=== PATIENT | male | born 1960 | race Caucasian/White ===

== ENCOUNTER 2018-02-12 15:32 | Observation (INO) | payer MEDICARE, MEDICAID, SELFPAY ==
[2018-02-12] VITALS (12 sets, daily range): BP systolic 118–148; BP diastolic 71–97; PULSE 88–109; RESP 14–18; TEMP 36.4–37.3; O2SAT 92–99; BMI 28.7
--- NOTE | 2018-02-12 | SOF_PTH ---
PATIENT: PABLO FRIAS LOC: [facility] U#:[id number] AGE/SX: 58/M ROOM: TX316 RE02/12/[address]: Dr. Washington Elam MD : 1960 BED: 1 DIS: 02/13/2018 SPEC #: [id number] RECD: 02/12/18 15:01 STATUS: SUGAR REQ #: [id number] DAVID: 02/12/18 00:[address]: Washington Elam DEPT: SURGICAL PATHOLOGY RECD BY: Regis Mcqueen ENTERED: 02/12/18 15:02 SP TYPE: SOFT TISS OTHR DR: Dr. Lexx Smith MD Tissues: Neck, NOS Procedures: Surgery Specimen Level V HEADER OPERATION: Left neck, modified radical dissection PRE-OP DIAGNOSIS: Papillary thyroid carcinoma, secondary malignant neoplasm of lymph nodes of neck TISSUE SUBMITTED: Modified radical left neck dissection with anterior compartment for metastatic thyroid carcinoma - neck levels labeled on specimen MICROSCOPIC DIAGNOSIS Neck, modified radical neck dissection: Two out of 33 lymph nodes positive for metastatic carcinoma. See comment. Level 1 lymph node - two out of two lymph nodes negative for metastatic carcinoma. Salivary gland tissue, no pathologic diagnosis. Level 2 lymph node - eight out of eight lymph nodes negative for metastatic carcinoma. Level 3 lymph node - one out of one lymph node negative for metastatic carcinoma. Level 4 lymph node - one out of three lymph nodes positive for metastatic papillary thyroid carcinoma. Level 5 lymph node - nine out of nine lymph nodes negative for metastatic carcinoma. Level 6 lymph node - nine out of nine lymph nodes negative for metastatic carcinoma. Level 7 lymph node - one lymph node, positive for metastatic papillary thyroid carcinoma. JACKY:windy 02/15/18 COMMENT Level 4 and level 7 lymph nodes are positive for metastatic papillary thyroid carcinoma and measures 2.5 and 2 cm in greatest dimension, respectively. They are almost completely replaced by the metastatic tumor. Extranodal extension is noted. Please make reference to previous specimen ([id number]), fine needle aspiration, left thyroid nodule with diagnosis of papillary carcinoma follicular variant and ([id number]) thyroid gland, total thyroidectomy with diagnosis of papillary thyroid carcinoma, multifocal. This case is discussed with Dr. Elam on 02/15/18. Case has been reviewed in consultation with Dr. Slaughter who concurs with the above diagnosis. IDC:AM MICROSCOPIC DESCRIPTION Slides are reviewed. GROSS DESCRIPTION Received in fixative is one container labeled with the patient's name and designated modified radical neck dissection with anterior compartment for metastatic thyroid carcinoma, neck levels are labeled. The specimen consists of a piece of fibroadipose tissue with levels of lymph nodes are labeled on a towel also stitched to it for orientation and measuring 21.5 x 8 x 2 cm. Level 7 lymph node is present separately. Level I - Three possible lymph nodes including salivary gland tissue are identified. Sections are submitted in three cassettes as follows: 1 - one bisected lymph node, 2 - salivary gland tissue, 3 - salivary gland tissue and one lymph node inked black. Level 2 - Seven possible lymph nodes are identified. Sections are submitted as follows: 4 - three lymph nodes, 5 - four lymph nodes. Level 3 - Three possible lymph nodes are identified in level 3 and sections are submitted as follows: possible lymph nodes, cassette 6. Level 4- Two lymph nodes are identified, one smaller lymph node measuring 0.5 cm and the second larger lymph node measuring 2.5 cm in greatest dimension. Sections of the larger lymph node reveal possible gross involvement by the tumor. Sections are submitted as follows: 7 & 8 - serially sectioned larger lymph node, 9 - one lymph node. Level 5 - Ten possible lymph nodes are identified measuring 0.2 to 0.5 cm in greatest dimension. Sections are submitted as follows: Cassette 10 - two lymph nodes, 11 & 12 - multiple lymph nodes. Level 6 - Seven possible lymph nodes are identified in level 6 and Sections are submitted as follows: 13 - multiple lymph nodes, 14 - one bisected lymph node. Level 7 - The specimen is present as a separate piece of tissue and measures 2 x 1 x 0.5 cm and it is bisected and submitted entirely in cassette 15. The lymph nodes are submitted in entirety. The lymph nodes measures 0.2 to 2.5 cm in greatest dimension. / SJ:rg 02/12/18 The specimen is further dissected for more possible lymph nodes. The salivary gland tissue at level 1 measures approximately 4 x 3 x 1 cm. Additional operations representative sections are submitted as follows: 16 - level 1, salivary gland tissue, 17 - level 2, possible lymph nodes, 18 - level 3, possible lymph nodes, 19 - level 5, possible lymph nodes, 20 - level 6, possible lymph nodes. / JACKY:windy 02/15/18 TC:0 CPT: 93858
--- NOTE | 2018-02-12 05:44 | EKG12_ITS ---
Test Reason : PRE-OP Blood Pressure : / mmHG Vent. Rate : 094 BPM Atrial Rate : 094 BPM P-R Int : 156 ms QRS Dur : 092 ms QT Int : 348 ms P-R-T Axes : 072 072 061 degrees QTc Int : 435 ms Normal sinus rhythm Normal ECG Confirmed by TEJA ROBIN, BELTRAN ([id number]), electronic news gathering editor ALEX COOK ([id number]) on 02/18/2018 11:35:40 AM Referred By: Washington Elam Confirmed By:BELTRAN LEZAMA MD
[2018-02-12 06:28] LABS: Hematocrit 45.5 % (40-54); Hemoglobin 15.4 g/dl (13.0-16.5); Mean Corp Hgb Conc 33.8 g/gl (32-36); Mean Corpuscular Hgb 31.7 pg (27.0-32.0); Mean Corpuscular Volume 93.6 fL (80-94); Mean Platelet Vol. 10.6 fl (6.2-12.0); Platelet Count 305 K/mm3 (150-450); RBC Distribution Width CV 13.3 % (11.6-14.6); RBC Distribution Width SD 44.4 fl (35.1-43.9); Red Blood Count 4.86 M/mm3 (4.6-6.2); White Blood Count 7.4 K/mm3 (4.4-11.0)
[2018-02-12 06:31] LABS: Scan Indicated on CBC? Y/N NO
[2018-02-12 06:32] LABS: Prothrombin Time (Protime)PT. 13.6 SECONDS (11.7-14.9)
[2018-02-12 06:33] LABS: Partial Thromboplast Time 30.3 Seconds (24.1-36.2)
[2018-02-12 06:46] LABS: AST(SGOT) 20 U/L (15-37); Alanine Aminotransfer ALT/SGPT 40 U/L (16-61); Albumin, Serum 3.5 g/dL (3.2-5.0); Alkaline Phosphatase 62 U/L (45-117); Anion Gap 8 (5-15); BUN 19 mg/dL (7-18); BUN/Creat Ratio 18.8 RATIO (10-20); Bilirubin, Direct 0.14 mg/dL (0.00-0.30); Chloride 110 mmol/L (98-107); Creatinine, Serum 1.01 mg/dL (0.70-1.30); EST Glomerular Filtration Rate 80 mL/min (>60); Est Glom Filt Rate - Afr Amer 97 mL/min (>60); Estimated Creatinine Clearance 81.31 ml/min; Globulin 3.3 g/dL (2.2-4.2); Glucose 112 mg/dL (74-106); Potassium 3.8 mmol/L (3.5-5.1); Protein, Total 6.8 g/dL (6.4-8.2); Sodium Level 141 mmol/L (136-145); Thyroid Stim Hormone (TSH) 1.97 uIU/mL (0.358-3.74)
--- NOTE | 2018-02-12 15:22 | OP.PCM_ITS ---
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 He has a history of thyroidectomy in 2016 where papillary thyroid carcinoma of the right lobe was identified. Review of his ultrasound showed left-sided lymphadenopathy as well as a anterior midline suspicious lymph node and given previous radioiodine therapy surgical treatment was offered in [facility] [place] with the recommendation of his treating application release manager. He was agreeable to proceed. The risks, alternatives, potential benefits, and complications were discussed at length and any questions answered to the patient and/or caregiver's satisfaction. Witnessed informed consent was obtained in the office, and the patient and/or caregiver was agreeable to proceed. Procedure went as follows: The patient was identified in the preoperative holding brought to the operating room was placed under general anesthesia and intubated. When appropriate anesthesia obtained, the neuro monitoring elec trodes of the complacency and confirmed to be operational in accordance manufactures directions given his preoperative right vocal fold paralysis. The left neck was then prepped and draped in usual sterile fashion after injecting with 10 cc of 1% lidocaine with 100,000 epinephrine along a standard apron type incision. After lying for vasoconstriction, a 15 blade scalpel was used to incise the skin and platysma. A subplatysmal flap was then elevated superiorly to the level of the hyoid and inferiorly to the clavicle. Self-retaining silk tie sutures were then applied and the dissection carried out along the mandible with identification of the marginal mandibular branch of the facial nerve which was identified and preserved. The submandibular gland was then resected free from the surrounding tissue with the facial vein and artery individually clamped and ligated with 3-0 silk sutures as well as the ganglion attachment of the lingual nerve dissection was then carried out inferiorly along the sternocleidomastoid muscle which was then divested of its surrounding fascia as part of the neck dissection component. Superiorly this was transected where it met the parotid gland superiorly and inferiorly at the clavicle. The dissection was then carried circumferentially around the sternocleidomastoid muscle with a spinal accessory nerve identified and preserved. The deep fatty tissues were then dissected free encompassing level 5 cervical lymph nodes over the cervical nerve rootlets and developed anteriorly to the carotid artery in its sheath. The vagus nerve was identified and preserved and dissection carried up along the jugular vein. The tributaries were then individually clamped and ligated to allow the jugular vein to be dissected free within the vascular sheath. Within level 3 there is identified a 2 cm firm enlarged lymph node as well as a smaller node more inferiorly and anteriorly dissection was carried down low in the inferior aspect of level 4 where the fatty tissue was clamped and ligated with silk sutures to avoid complication of chylous fistula. Dissection was then carried out anteriorly where the previously dissected thyroid bed was encountered in the fatty tissues and lymph bearing tissues were then dissected free from the strap muscles and continued anteriorly where the anterior compartment was then evacuated of tissue. This was then marked and sent for pathologic evaluation. Ultrasound evaluation showed a 1 cm level 7 node and this was palpable anterior to the trachea and this was further resected and sent as separately marked specimen. Recurrent laryngeal nerve monitoring was used during the procedure however the course of the facial nerve was densely scarred and fibrosed with the tracheoesophageal groove obliterated by scar tissue. As this did not have any ultrasonographic or clinically palpable evidence of disease this was left unexplored an effort to reduce inadvertent injury to the nerve. The neck specimen was thoroughly examined for any intervening parathyroid tissue where none was identified to allow for pathologic identification and reimplantation. There was noted to be a fatty pink tissue remnant along the normal course of the vascular pedicle at the thyroid cartilage which could possibly represent residual parathyroid tissue and this was left intact as it was not firm or discolored as the other obviously tumor involved nodes were. The wound was then copiously irrigated saline solution and a #7 flat drain placed and brought through a separate stab incision in the skin. The platysma was then reapproximated with interrupted 3-0 Vicryl sutures followed by running 5-0 Monocryl suture to the skin. The patient was then returned to anesthesia revived and expelled without complication having tolerated the procedure well. Type of Anesthesia:: General Anesthesiologist: [place] Special Medications: none Specimen's removed: left neck and midline contents Drains: #7 flat CHRISTINA Estimated Blood Loss (mL): 50 mL Fluids Replaced: 1700 ml - Complications none - Admit VTE Documentation VTE Present on Admission: No VTE Mechan Device Prophylaxis: SCD's VTE Pharm Prophylaxis ordered?: No
[2018-02-12 17:13] LABS: PTHIN 53.9 pg/mL (18.4-80.1)
[2018-02-12] MEDS: Lactated Ringers 1,000 ML 120 ML IV (17:47)
[2018-02-12] MEDS: Ibuprofen 400 MG Tablet PO ×2 (17:52→23:02)
[2018-02-12] MEDS: Budesonide Respules 0.5 MG/2 ML AMPUL.NEB. INHALATION (19:13)
[2018-02-12] MEDS: Albuterol 2.5 MG/3 ML VIAL.NEB. INHALATION ×2 (19:13→23:34)
[2018-02-13 01:59] VITALS: PULSE 84
[2018-02-13 02:10] VITALS: BP 133/77; PULSE 80; RESP 14; TEMP 36.3; O2SAT 95
[2018-02-13] MEDS: Acetaminophen 325 MG Tablet 650 MG PO (02:21)
[2018-02-13] MEDS: Lactated Ringers 1,000 ML 120 ML IV (02:21)
[2018-02-13] MEDS: Thyroid 60 MG Tablet 240 MG PO (07:03)
[2018-02-13] MEDS: Ibuprofen 400 MG Tablet PO (07:03)
[2018-02-13] MEDS: Budesonide Respules 0.5 MG/2 ML AMPUL.NEB. INHALATION (07:23)
[2018-02-13] MEDS: Albuterol 2.5 MG/3 ML VIAL.NEB. INHALATION (07:23)
[2018-02-13 07:49] LABS: Calcium,Total 7.6 mg/dL (8.5-10.1)
[2018-02-13 07:50] VITALS: BP 112/70; PULSE 83; RESP 18; TEMP 36.7; O2SAT 93
[2018-02-13] MEDS: predniSONE 5 MG Tablet 15 MG PO (07:55)
[2018-02-13 08:49] VITALS: PULSE 92
--- NOTE | 2018-02-13 09:04 | PCM.PN.SRG ---
Patient Problems: Active and Suspected Problems Secondary and unspecified malignant neoplasm of lymph nodes of head, face and neck (Acute) Malignant neoplasm of thyroid gland (Acute) Subjective: Doing well, denies incisional pain, perioral numbness or tingling. Objective: Well appearing with normal voicing and facial movement. Chvostek's sign negative. Neck incision clean, dry, and intact. - Physical Exam General: Alert, Oriented x3, No apparent distress HEENT: Atraumatic, PERRLA, EOMI Oral: Moist Mucosa Neck: Supple, - - incision intact, drain with serous output Lungs: Normal air movement Cardiovascular: Regular rate, Regular Rhythm Extremities: No cyanosis, No edema Skin: No rashes, No breakdown Psych/Mental Status: Alert and oriented to time, place, person, mood and affect Vital Signs Temp Pulse Resp BP Pulse Ox 98.0 F 92 18 112/70 93 02/13/18 07:50 02/13/18 08:49 02/13/18 07:50 02/13/18 07:50 02/13/18 07:50 Oxygen Flow Rate (L/min) 2 Oxygen Delivery Method Room Air Weight: 90.7 kg Body Mass Index (BMI) 28.7 Intake and Output for Last 24 Hours 02/11/18 02/12/18 02/13/18 23:59 23:59 23:59 Intake Total 2500 / 2500 2067 / 2068 Output Total 65 / 65 480 / 480 Balance 2435 / 2435 1588 / 1588 Laboratory Tests Past 24 Hrs 02/12/18 02/12/18 02/13/18 16:10 16:10 07:14 Calcium 8.0 L 7.6 L PTH Intact 53.9 Medical Necessity - Tobacco Use Smoking Status: Former smoker Assessment/Plan All Active Problems Secondary and unspecified malignant neoplasm of lymph nodes of head, face and neck (Acute) Malignant neoplasm of thyroid gland (Acute) Doing well s/p left neck dissection for metastatic papillary thyroid carcinoma. Hypocalcemia from pre-op, asymptomatic and oral calcium supplementation with vitamine D use encouraged. Drain output remains higher than I would like for removal, but he reports familiarity with drain care and desires to go home and discharge with return for drain removal in the office is offered. He is otherwise doing very well and appears to have preserved function of the facial and laryngeal verve on the operative side.
--- NOTE | 2018-02-13 09:10 | DCINST_ITS ---
- Discharge Diagnoses Current Active Problems: Current Active and Chronic Problems Secondary and unspecified malignant neoplasm of lymph nodes of head, face and neck (Acute) Malignant neoplasm of thyroid gland (Acute) You will use the following diet at home:: Regular Discharge Activity: Return to Normal Activity Call your doctor if your incision/area has: Sudden Increased Bleeding, Increased Redness, Swelling at the incision site Call your doctor if you observe: Fever of 101 or Higher, Uncontrolled pain Suture Line Care: Avoid Pulling/Pushing Drain: - - drain fluid collected in bulb at least twice a day Allergies/Adverse Reactions: Allergies Tetracyclines Allergy (Verified 02/12/18 06:12) Rash Medications to take at Discharge Albuterol Inhaler [Ventolin Hfa (SP)] 2 puff INHALATION Q4H PRN PRN 11/28/15 Albuterol Aerosols [Ventolin Aerosols] 2.5 mg INHALATION Q6H PRN PRN 06/28/16 Budesonide/Formoterol Fumarate [Symbicort 160-4.5 Mcg Inhaler] 2 puff IH BID 06/28/16 Thyroid [[place] Thyroid] 240 mcg PO DAILY 11/15/16 Prednisone [Deltasone] 15 mg PO DAILY 03/28/17 Primary Care Physician: Lexx Smith MD [Primary Care Provider] - Test Results: Test results from this visit will be discussed in further detail at your follow- up appointment, if applicable. Please Follow Up With: Washington Elam MD When: 2 days
== END 2018-02-13 09:34 | disposition home or self-care (01) ==
LOC: ACINP 15:51 → MS3 02-15 10:44
PROVIDERS: Admitting Provider Otolaryngology; Family Provider Family Medicine; PCP Family Medicine; Referring Provider Otolaryngology; Visit Provider Otolaryngology
PROC: (CPT 42410; principal; 2018-02-12 07:00)
DX: C73 Malignant neoplasm of thyroid gland (principal); C77.0 Secondary and unspecified malignant neoplasm of lymph nodes of head, face and neck; J44.9 Chronic obstructive pulmonary disease, unspecified; G25.81 Restless legs syndrome; J38.01 Paralysis of vocal cords and larynx, unilateral; Z79.899 Other long term (current) drug therapy; Z79.51 Long term (current) use of inhaled steroids; Z87.891 Personal history of nicotine dependence; E07.9 Disorder of thyroid, unspecified; R06.00 Dyspnea, unspecified; Z23 Encounter for immunization
CPT/HCPCS: 38724; 36415; 80048; 80076; 82310; 83970; 84443; 85027; 85610; 85730; 88305; 88307; 93005; 94640; 96360; 96361; 99218; G0008; J7120; 90686; A4216; G0378; G0379; J2405

== ENCOUNTER 2018-04-15 12:45 | Emergency (ER) | payer MEDICARE, MEDICAID, SELFPAY ==
[2018-04-15 12:46] VITALS: BP 132/92; PULSE 103; RESP 16; TEMP 36.8; O2SAT 96; BMI 28.7
--- NOTE | 2018-04-15 13:26 | RAD_ITS ---
STUDY: X-RAY CHEST REASON FOR EXAM: Male, 58 years old. Hemoptysis. TECHNIQUE: PA and lateral views of the chest. COMPARISON: Comparison is made with prior study dated March 28, 2017. FINDINGS: Hyperinflation. Scattered calcified granulomas. Decreased bronchovascular markings in both lungs suggestive of emphysematous changes. There is no demonstrated pleural abnormality. Normal size heart. Normal mediastinum and nely. Normal visualized pulmonary arteries. Normal visualized aortic arch and descending thoracic aorta. There is demineralization of the osseous structures. Normal visualized ribs, clavicles, and shoulders. There is no demonstrated abnormality of the visualized soft tissue structures of the upper abdomen. RAD/Chest PA and Lateral IMPRESSION: Hyperinflation. No acute abnormality is seen. Electronically Signed: Nash Pepe MD at 13:55 EST Tel [phone], Service support ,
--- NOTE | 2018-04-15 13:31 | ED.DCSUM_ITS ---
History of Present Illness Chief Complaint: Cough Informant: Patient Onset: Month(s) - 2 Context: Onset with activity - since his ENT left neck surgery Timing: Intermittent - but daily; worse today Quality: small chunks of blood Current Severity: Moderate Maximum Severity: Moderate Worsened by: nothing Relieved by: nothing Associated Symptoms: copd/wheezing over past 1-2 mos, breathing normally in past several days Narrative: Patient states he has a paralyzed vocal cord due to his thyroid surgery, he had papillary carcinoma in his thyroid was removed. He recently had some abnormal lymph nodes with more cancer in them, which were removed in February from the left side of his neck. He states he has had a scope in the ENT office before and after his surgery. - Past Medical History (1) COPD (chronic obstructive pulmonary disease) Status: Chronic (2) Malignant neoplasm of thyroid gland Status: Chronic (3) Secondary and unspecified malignant neoplasm of lymph nodes of head, face and neck Status: Chronic Past Medical History - Allergies and Home Meds Allergies/Adverse Reactions: Allergies Tetracyclines Allergy (Verified 02/12/18 06:12) Rash Primary Care Physician: Lexx Smith MD [Primary Care Provider] - Surgical History: - - thyroid, left neck LND Smoking Status: Former smoker Review of Systems General: Denies: Chills, Fever, Sweats Eyes: Denies: Visual changes - bilaterally, Diplopia ENT: Denies: Rhinorrhea, Sore throat Cardiovascular: Denies: Chest pain, Palpitations, Heart racing Respiratory: Reports: Dyspnea - wheezing -- resolves w/ home breathing treatments, - - hemoptysis. Denies: Cough, Dyspnea on exertion Gastrointestinal: Denies: Abdominal pain, Nausea, Vomiting, Diarrhea, Melena, Hematochezia Genitourinary: Denies: Dysuria, Hematuria, Frequency Musculoskeletal: Denies: Back pain, Swelling, Extremity Pain Skin: Denies: Rash, Abscess Neurological: Denies: Headache, Weakness, Parasthesia, Numbness Allergy: Denies: Swelling of the mouth, Swelling of the tongue Physical Exam Vital Signs/Narrative: Vital Signs Temp Pulse Resp BP Pulse Ox 04/15/18 12:46 98.2 F 103 H 16 132/92 H 96 Inital Vital Signs reviewed: Yes General: Well nourished, Well developed Head: Normocephalic, Atraumatic Eyes: Perrl, EOMI ENT: Moist mucous membranes, No rhinorrhea, - - Posterior oropharynx with some cobblestoning but otherwise clear with no bleeding or obvious source. Hoarse of voice. Neck: Supple, Nontender, - - thickened/firm but not distended or swollen left lateral neck surgical site. no evidence for infection or dehiscence or fluid collection. Cardiovascular: Regular rate, Regular rhythm, No murmurs Respiratory: No distress, CTA bilaterally, Chest nontender, Diminished - throughout Abdomen: Soft, Nontender, Nondistended Back: Nontender, Normal Inspection Extremities: Nontender, No edema Skin: Normal color, No rash Neurological: Alert, Oriented x3, Cranial nerves II-XII grossly intact, Normal Strength, Normal Sensation, Normal Gait Psychological: Normal affect Diagnostic/Tx/Re-eval Impressions Chest X-Ray 04/15/18 13:26 IMPRESSION: Hyperinflation. No acute abnormality is seen. Electronically Signed: Nash Pepe MD at 13:55 EST Tel [phone], Service support , 04/15/18 13:26 Chest PA and Lateral [RAD] Stat 04/15/18 13:57 CT Chest [Chest without Contrast] [CT] Stat Laboratory Results 04/15/18 13:35 WBC 10.6 RBC 5.07 Hgb 16.1 Hct 47.4 MCV 93.5 MCH 31.8 MCHC 34.0 RDW 13.5 RDW Differential 44.9 H Plt Count 325 MPV 10.6 Immature Gran % (Auto) 0.400 Neut % (Auto) 85.0 H Lymph % (Auto) 7.3 L S[place]y % (Auto) 4.3 Eos % (Auto) 2.8 Baso % (Auto) 0.2 Absolute Neuts (auto) 9.0 H Absolute Lymphs (auto) 0.77 L Total Counted Not Reportable - Medical Decision Making Patient was amenable to blood count and a chest x-ray both of which are unremarkable. I discussed with Dr. Elam, his rehab specialist. He states that the patient has been noncompliant with recommended treatments. He recommended physical therapy for the unusually high amount of scarring he developed in the left side of his neck, but the patient does not want to do that. He also recommended bronchoscopy, but states the patient refused several times, since he had a mass that was on or very close to his airway, and there is risk for the mass progressing into the tracheobronchial tree. I discussed this with the patient, he states that his doctor did not recommend bronchoscopy to him, he has no recollection of that. He states he is interested in that. I advised performing a CT scan without contrast, to lessen his risk for worsening any residual thyroid papillary carcinoma, however he is refusing that and states that he does not think he needs it. I discussed with him why I thought it was a good idea but he still pleasantly refuses and wants the referral information for pulmonary, and he does not want to see the group here he would rather go to [facility]. He is given referral information and advised to call for a follow-up as soon as possible, and if he reconsiders the CT scan, he is welcome to return. ED Disposition - Plan for ED Patient: Disposition: Home or Assisted Living Chief Complaint: GI Bleed Diagnosis: Hemoptysis, Secondary and unspecified malignant neoplasm of lymph nodes of head, face and neck Instructions: ED Hemoptysis Referrals: Lexx Smith MD [Primary Care Provider] - Sudeep Short MD [NON-STAFF] - As soon as possible (Call for appointment)
[2018-04-15 13:46] LABS: Absolute Lymphocyte Count 0.77 X10^3/ul (0.83-4.51); Basophil# 0.02 X10^3/uL; Basophil% 0.2 % (0-1); Eosinophils% 2.8 % (0-5); Hematocrit 47.4 % (40-54); Hemoglobin 16.1 g/dl (13.0-16.5); Lymphocyte # 0.77 X10^3/ul (4.0); Lymphocyte % 7.3 % (19-41); Mean Corpuscular Hgb 31.8 pg (27.0-32.0); Mean Corpuscular Volume 93.5 fL (80-94); Mean Platelet Vol. 10.6 fl (6.2-12.0); Monocyte# 0.46 X10^3/uL; Monocyte% 4.3 % (0-10); Neutrophil # 8.99 X10^3/uL (2.7-7.7); Platelet Count 325 K/mm3 (150-450); RBC Distribution Width CV 13.5 % (11.6-14.6); RBC Distribution Width SD 44.9 fl (35.1-43.9); Red Blood Count 5.07 M/mm3 (4.6-6.2); White Blood Count 10.6 K/mm3 (4.4-11.0)
[2018-04-15 13:48] LABS: POSITIVE COUNT NO; POSITIVE DIFFERENTIAL NO; POSITIVE MORPHOLOGY NO
--- OUTSIDE RECORDS SUMMARY | 2018-06-01 10:24 | XMS RPT_ITS ---
:1960 Author Organization OHIP Care Team Providers Name Role Phone SARAH, LAURO Primary Care Unavailable ODIN NEGRETE Attending Unavailable Elam, [place] Attending Unavailable Elam, [place] Referring Unavailable SARAH, LAURO Primary Care Unavailable Elam, [place] Admitting Unavailable Clint Lezama Attending Unavailable Elam, [place] Referring Unavailable LUIS BLANDON Attending Unavailable JOHNNIENERLUIS Attending Unavailable Sarah, Lauro Attending Unavailable Sarah, Lauro Primary Care Unavailable Sarah, Lauro Admitting Unavailable Sarah, Lauro Admitting Unavailable Sarah, Lauro Attending Unavailable Sarah, Lauro Primary Care Unavailable Sarah, Lauro Attending Unavailable Sarah, Lauro Primary Care Unavailable Sarah, Lauro Admitting Unavailable Sarah, Lauro Attending Unavailable Sarah, Lauro Primary Care Unavailable Sarah, Lauro Admitting Unavailable Sarah, Lauro Attending Unavailable Sarah, Lauro Primary Care Unavailable DINH LEZAMA Admitting Unavailable DINH LEZAMA Attending Unavailable HASAN, SHAZIA Referring Unavailable HASQUIQUE SHAZIA Referring Unavailable NITZA ADANA Attending Unavailable TOYA NEGRETE (KIMANI) Referring Unavailable TOYA NEGRETE (KIMANI) Attending Unavailable TOYA NEGRETE (KIMANI) Referring Unavailable TOYA NEGRETE (KIMANI) Referring Unavailable DINH LEZAMA Attending Unavailable TOYA NEGRETE (KIMANI) Referring Unavailable HASAN, SHAZIA Referring Unavailable HASANNITZAA Attending Unavailable HASAN, SHAZIA Referring Unavailable SHAZIA ADAN Attending Unavailable SHAZIA ADAN Referring Unavailable KENDAL KATALINA E Attending Unavailable SHAZIA ADAN Referring Unavailable TUCKERTAWANDA DINH Attending Unavailable PROBLEMS PROBLEMS DATE TYPE CONDITION / CODE ATTENDING STATUS SOURCE 05/07/2018 Active Hemoptysis / DINH LEZAMA Active [facility] R04.2(ICD-10) Clinic Other [facility] Rep[facility] 05/07/2018 Active 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, Clinic Other unspecified / [facility] J38.00(ICD-10) Repository 03/15/2018 Unknown C73 - Malignant Elam, [place] Active [facility] neoplasm of thyroid [facility] gland / C73(ICD-10) Hospital Repository 03/12/2018 Unknown R06.00 - Dyspnea, [place], Clint [facility] unspecified / [facility] R06.00(ICD-10) Hospital Repository 11/24/2016 Active Postprocedural NA Active [facility] hypothyroidism / Clinic Main E89.0(ICD-10) [facility] 06/08/2017 Active Chronic obstructive NA Active [facility] pulmonary disease, Clinic Main unspecified / [facility] J44.9(ICD-10) Repository 09/20/2015 Active Malignant neoplasm NA Active [facility] of thyroid gland / Clinic Main C73(ICD-10) [facility] PROCEDURES PROCEDURES No Procedure Records FoundRESULTS RESULTS CNCO Observed: 05/12/2018 Status: COMPLETED Source: [place] 12:00 AM CLINIC OTHER CAMPUS REPOSITORY Letter Text Pablo Sanchez Dinh Lezama MD, [facility] [place] May 12, 2018 Dear Mr. Sanchez, At bronchoscopy: - Other than the previously identified vocal cord paralysis, no significant airway abnormality visible to my eye. - No active bleeding, or potential source of bleeding was found in the tracheobronchial tree. - No visual or microscopic evidence of either bronchogenic (lung) or infiltrative thyroid cancer was seen. - Minimal clear secretions were seen in the lower airways, easily rinsed and suctioned free with the bronchoscope, and cultures of these secretions show no evidence of active infection. IMPRESSION: 1. Most likely cause of hemoptysis is exacerbation of previously documented chronic bronchitis/COPD. RECOMMEND: 1. Stop Budesonide by nebulizer. 2. Add Trelegy 1 inhalation once daily every day. I have E-scripted to [facility] on file. It is covered by insurance according to our records. 3. Use Combivent Respimat 1 inhalation, only as needed, up to 3-4 times daily. I have also sharing this report with Dr. Adan, Dr. Smith and Dr. Elam. Dinh Lezama MD, [facility] [place] [address] [place] [address] cc: Lauro Smith MD [address] [place] [id number] [place] Elam MD [address] [facility], [address] [facility] [address] ARBEN Observed: 05/12/2018 Status: COMPLETED Source: [place] 12:00 AM CLINIC OTHER CAMPUS REPOSITORY Telephone (MEPRAD) PABLO SANCHEZ ([id number]) 1960 M Date Time Provider Department 05/12/18 DINH LEZAMA During your visit today, we recorded the following information about you: Dinh Lezama MD 05/12/2018 10:03 AM Signed At bronchoscopy: - Other than the previously identified vocal cord paralysis, no significant airway abnormality visible to my eye. - No active bleeding, or potential source of bleeding was found in the tracheobronchial tree. - No visual or microscopic evidence of either bronchogenic (lung) or infiltrative thyroid cancer was seen. - Minimal clear secretions were seen in the lower airways, easily rinsed and suctioned free with the bronchoscope, and cultures of these secretions show no evidence of active infection. IMPRESSION: 1. Most likely cause of hemoptysis is exacerbation of previously documented chronic bronchitis/COPD. RECOMMEND: 1. Stop Budesonide by nebulizer. 2. Add Trelegy 1 inhalation once daily every day. I have E-scripted to [facility] on file. It is covered by insurance according to our records. 3. Use Combivent Respimat 1 inhalation, only as needed, up to 3-4 times daily. I have also saved this notation in a letter printed today, to be mailed to patient. Dinh Lezama MD, [facility] [place] [facility] [address] [place] [address] P: [phone] F: [phone] [email or web address] Sonia Mirza LPN 05/12/2018 10:43 AM Signed Patient notified and verbalizes understanding. Sonia Mirza LPN Allergies As of Date: 05/12/2018 Noted Allergy Reaction TETRACYCLINES 08/05/2015 2 - Rash Date Reviewed: 05/12/2018 Reviewed by: Dinh Lezama - Fully Assessed Reason for Visit: Results [95] Cmt: Bronchoscopy Visit Diagnosis:Hemoptysis [R04.2] Order(s):jhegtdltczg-znkhrkwiv-iwmarorz (TRELEGY ELLIPTA) 100-62.5-25 mcg dsdvInhale 1 Puff as instructed once daily.Disp: 1 EachRfl: 5 Prescriptions as of 05/12/2018 Sig: FLUTICASONE 100 MCG-UMECLID 6* Inhale 1 Puff as instructed o* LEVOTHYROXINE 150 MCG TABLET Take 2 tablets by mouth once * IPRATROPIUM 20 MCG-ALBUTEROL * Inhale 1 Puff as instructed f* ALBUTEROL SULFATE 2.5 MG/3 ML* Use 3 mL via nebulizer every * PREDNISONE 5 MG TABLET Take 3 tablets by mouth once * Problem List As Of Date 05/12/2018 Noted Resolved Special screening for malignant neoplasms, colo*INVALID FOR*11/09/2014 SI (sacroiliac) joint dysfunction [M53.3] INVALID FOR* Midline low back pain with right-sided sciatica*INVALID FOR* DDD (degenerative disc disease), lumbar [M51.36]INVALID FOR* Papillary thyroid carcinoma (HCC) [C73] INVALID FOR* Postoperative hypothyroidism [E89.0] INVALID FOR* High serum thyroglobulin [R79.89] INVALID FOR* Cervical lymphadenopathy [R59.0] INVALID FOR* COPD with chronic bronchitis (HCC) [J44.9] INVALID FOR* Hemoptysis [R04.2] INVALID FOR* More... Prescriptions ordered this encounter Disp Refills Start End FLUTICASONE 100 MCG-UMECLID 62.5 MCG* 1 Ea* 5 05/12/2018 11/08/2018 Route: INHALATION Sig: Inhale 1 Puff as instructed once daily. Medications Discontinued During This Encounter budesonide (PULMICORT) 0.5 mg/2 mL n* 60 V* 11 10/23/2017 05/12/2018 Sig: INHALE 2 ML BY NEBULIZER OVER 5-15 MINUTES EVERY 12 HOURS. Disc: Clinical Decision Encounter Status:Closed by DINH LEZAMA MD on 05/12/18 PT ED Observed: 05/07/2018 Status: COMPLETED Source: [place] 2:06 PM [facility] REPOSITORY HNO ID: [id number] Author: Dat RamirezRn) ROGE Faith Service: Nursing Author Type: Registered Nurse Type: Patient Education Filed: 05/07/2018 2:06 PM Note Text: POST OP LEARNING RESPONSE INSTRUCTION PROVIDED TO: Patient and family member METHOD OF INSTRUCTION: Written instruction - handouts Verbal instruction PATIENT / FAMILY RESPONSE: Verbalizes understanding of: POST-OPERATIVE INSTRUCTIONS-Correct actions to take to reduce postoperative complications FOLLOW-UP PLAN: Patient instructed to call with any further issues SUPPLEMENTAL MATERIAL: None REFERRAL (RECOMMENDATION): None Electronically Signed By: Dat Faith RN In Department: [facility] ENDOSCOPY PROCEDURE Observed: 05/07/2018 Status: COMPLETED Source: [place] 1:17 PM [facility] REPOSITORY HNO ID: [id number] Author: Dinh Lezama Service: Pulmonary Disease Author Type: Physician Type: Procedures Filed: 05/07/2018 1:22 PM Note Text: BEDSIDE PROCEDURE NOTE BRONCHOSCOPY Date/Start Time: 05/07/2018 12:48 PM Performed by: DINH LEZAMA Authorized by: DNIH LEZAMA Consent/Stedman Protocol Written Consent Obtained: Yes Sign In Communication: Completed Time Out completed: Team confirms correct patient, procedure, side/site, position (if applicable) and completion AND review of fire risk assessment/protocols (if appropriate) Affirmation of Time Out: Yes Sign Out Discussion: Yes Pre-procedure Details: Personnel directly involved with the procedure wore the appropriate PPE. Medications: Analgesia and anxiolysis Analgesia (see MAR): Fentanyl Anxiolysis (see MAR): Midazolam Procedure Details: Type: Standard Indication: Hemoptysis and cough, chronic Bronchoscope In Time: 05/07/2018 12:59 PM The bronchoscope was introduced via the left nostril. Maneuvers Performed: Washing Washing - Location: Tracheoronchial tree Washing - Returned Fluid Description: Thin and clear Washing - # of Samples: 1 Bronchoscope Out Time: 05/07/2018 1:03 PM Bronchoscopy Abnormal Findings: Minimal inflammation of the posterior wall of the subglottic trachea. No ulcer, mass, purulent secretion, blood. Post-procedure Details: Patient tolerated the procedure well with no immediate complications Estimated Blood Loss: None Specimens Sent: Bacterial culture (AFB smear and culture, cytology. ) SIGNATURE: Dinh Lezama MD PATIENT NAME: Pablo Sanchez DATE: May 07, 2018 TIME: 1:17 PM PAGER/CONTACT #: [phone] Observed: 05/07/2018 Status: F Source: [place] RESPIRATORY CULT/STAIN 1:15 PM [facility] REPOSITORY Sp. Request/Comment: - Specimen received in sterile container. Smear Result - No organisms seen No Polymorphonuclear Leukocytes Culture Result - Rare Normal respiratory geeta present Performed By: #### RCULST #### [facility] [address] [address] CYTOLOGY Observed: 05/07/2018 Status: F Source: [place] 1:15 PM [facility] REPOSITORY Specimen originated from [facility] Specimen #: [id number] Submitting Physician: Dinh Lezama M.D. SPECIMEN SUBMITTED A: WASHING, ENTIRE TRACHEOBRONCHIAL TREE FINAL DIAGNOSIS A. WASHING, ENTIRE TRACHEOBRONCHIAL TREE Negative for malignant cells. Denzel Souza M.D. Ph.D. (Electronic Signature) CLINICAL DATA Hemoptysis, hoarseness, thyroid cancer. Bronchial washing, entire tracheobronchial tree GROSS DESCRIPTION 42cc clear, colorless CytoLyt with material STAINS A: WASHING, ENTIRE TRACHEOBRONCHIAL TREE THIN PREP Non-News Department Intern Date of Report: 05/10/2018 Date of Procedure: 05/07/2018 Date of Receipt: 05/07/2018 Submitted by: Dinh Lezama M.D. Location: [facility] Diagnostic interpretation performed at [facility], [address] [address]. Performed By: #### WASERENA #### [employer] [address] [place] [address] [phone] OPERATIVE NO Observed: 05/07/2018 Status: COMPLETED Source: [place] 12:40 PM [facility] OTHER CAMPUS REPOSITORY HNO ID: [id number] Author: Dinh Lezama Service: Pulmonary Disease Author Type: Physician Type: Operative Report Filed: 05/07/2018 1:23 PM Note Text: See Epic Procedure Note and Provation Note. Dinh Lezama MD, [facility] [place] [address] P: [phone] F: [phone] HISTORY PHYSICAL Observed: 05/07/2018 Status: COMPLETED Source: [place] 12:12 PM [facility] OTHER CAMPUS REPOSITORY HNO ID: [id number] Author: Dinh Lezama Service: Pulmonary Disease Author Type: Physician Type: HANDP Filed: 05/07/2018 12:15 PM Note Text: PROCEDURAL SEDATION HISTORY AND PHYSICAL EXAM SERVICE DATE: 05/07/2018 SERVICE TIME: 12:10 PM Subjective HPI: This is a 58 year old male who presents with hemoptysis and hoarseness following treatment for thyroid cancer. ENT examination remarkable only for vocal cord paralysis. PAST ANESTHESIA HISTORY: No history of adverse event PAST MEDICAL HISTORY Diagnosis Date - COPD (chronic obstructive pulmonary disease) (HCC) - COPD with chronic bronchitis (HCC) 09/10/2017 - Papillary thyroid carcinoma (HCC) - Postoperative hypothyroidism PAST SURGICAL HISTORY Procedure Laterality Date - COLONOSCOP W/ OR W/O BRSH SPEC 11/09/2014 Colonoscopy - THYROIDECTOMY 07/10/2015 Papillary thyroid carcinoma. Prior to Admission medications as of 05/07/18 1119 Medication Sig Last Dose Taking levothyroxine (SYNTHROID) 150 mcg tablet Take 2 tablets by mouth once daily. 05/07/2018 at 0700 Yes budesonide (PULMICORT) 0.5 mg/2 mL nebulizer solution INHALE 2 ML BY NEBULIZER OVER 5-15 MINUTES EVERY 12 HOURS. 05/07/2018 at 0730 Yes ipratropium-albuterol (COMBIVENT RESPIMAT) 20-100 mcg/actuation mist Inhale 1 Puff as instructed four times daily as needed. 05/06/2018 at 2200 Yes albuterol (PROVENTIL) 2.5 mg /3 mL (0.083 %) nebulizer solution Use 3 mL via nebulizer every 6 hours as needed. OVER 5-15 MINUTES. FOR WHEEZING AND SHORTNESS OF BREATH. 05/06/2018 at 2200 Yes predniSONE (DELTASONE) 5 mg tablet Take 3 tablets by mouth once daily. 05/07/2018 at 0700 Yes ALLERGIES Allergen Reactions - Tetracyclines Rash Objective PHYSICAL EXAM: AIRWAY: Airway Visualization of Uvula: Yes Mouth opening greater than 2 fingerbreadths: Yes Neck Full Range of Motion: Yes LUNGS: Lungs clear to auscultation, Good diaphragmatic excursion CARDIAC: Normal S1 and S2; no rubs, murmurs, or gallops Assessment/Plan ASA Class: ASA Class:: Patient with mild systemic disease Active Problems: * No active hospital problems. * Resolved Problems: * No resolved hospital problems. * Provisional Diagnosis/Treatment Plan: flexible bronchoscopy, possible brush and forceps biopsy. SEDATION GOAL: Moderate SIGNATURE: Dinh Lezama MD PATIENT NAME: Pablo Sanchez DATE: May 07, 2018 TIME: 12:12 PM PAGER: [phone] NURSING PROG Observed: 05/07/2018 Status: COMPLETED Source: [place] 11:28 AM CLINIC OTHER CAMPUS REPOSITORY HNO ID: [id number] Author: Sarah (Rn) ROGE Meier Service: Nursing Author Type: Registered Nurse Type: Nursing Progress Note Filed: 05/07/2018 11:30 AM Note Text: PRE OP LEARNING ASSESSMENT PROCEDURE/SURGERY:Bronchoscopy READINESS TO LEARNeager COGNITIVE ABILITY: Alert and oriented MOTIVATION TO LEARN: Eager FAMILY SUPPORT: High - Very involved in pt care PATIENT LEARNS BEST BY: Verbal Instruction FACTORS AFFECTING LEARNING: None PHYSICAL LIMITATIONS AFFECTING LEARNING: None Electronically Signed By: Sarah Meier RN In Department: [facility] ENDOSCOPY NURSING PROG Observed: 05/06/2018 Status: COMPLETED Source: [place] 11:05 AM CLINIC OTHER CAMPUS REPOSITORY HNO ID: [id number] Author: Nicole (Roge) ROGE Ortiz Service: Nursing Author Type: Registered Nurse Type: Nursing Progress Note Filed: 05/06/2018 11:13 AM Note Text: PACC Nurse Progress Note History AND Physical: PACC Visit Date: N/A Original HANDP Date: 04/23/[address] Jailene Lezama ED visit Date: N/A Outside HANDP Scanned Date: N/A Labs Within Last 6 Months: N/A Imaging Within Last 12 Months: N/A Cardiac Testing: ECHO Date: 02/2017, Comment: EF 57% BMI Percentile (PEDS): N/A Risk Assessment: N/A Anesthesia Review: N/A Narrative: HX thyroid CA, COPD Pre-op Considerations: N/A Chart Check: Complete Nicole Oritz RN May 06, 2018 11:05 AM PATIENT PREOPERATIVE INSTRUCTIONS Pt unavailable , reviewd pre op instructions with , Nikki No ref. provider found has scheduled you for your procedure at this surgery center: [facility]: [phone] -- [address] [facility] [address]. Please read below carefully for your personalized instructions. Blood Thinning Medications: - Stop NSAIDS (Ibuprofen, Advil, Aleve, Motrin, Celebrex, Mobic, etc.) 7 days before surgery, as directed by your surgeon. - Stop Vitamin E, ALL multi-vitamins, herbals and dietary supplements 7 days before surgery. Dietary Restrictions: - No solid food after midnight. - You may have 12 ounces of clear liquids (water, clear juices such as apple juice or gatorade, carbonated beverages, clear tea, black coffee, jello) until 2 hours before scheduled arrival at facility. Pain Medications: Medications: Approved medications to take the morning of surgery with a sip of water: Synthroid, deltasone If you start any new medications after today's visit, please contact the surgeon's office. Important Reminders: - If you are prescribed inhalers for breathing, continue using them AND bring them to the surgery center. - Candy, mints, gum and tobacco products are NOT permitted the morning of surgery. - Hearing aids, dentures and glasses may be worn the morning of surgery. - NO jewelry, body piercings, makeup, hairpins or contacts are to be worn the day of surgery. OK to shower DOS do not use creams, lotions, powders perfume/cologne or after shave if extremity surgery remove all nail macanese pre op and do not shave site If you develop symptoms such as a fever, cold, or flu, or have other changes to your health within TWO DAYS of scheduled surgery or the morning of surgery, please contact the surgery center above. Personal Belongings: - Leave ALL valuables and money at home or with family members. For Outpatient Procedures: - YOU MUST HAVE A RESPONSIBLE LEAD PROJECT ENGINEER TAKE YOU HOME. A EDGE BASTER OR PIECE DYER CANNOT BE MADE A RESPONSIBLE LEAD PROJECT ENGINEER. - We recommend that a responsible person stays with you overnight to take care of you. - You cannot stay in a hotel alone after outpatient surgery. You will not be permitted to have your surgery, if you do not have someone to take care of you. Arrival Time for Surgery: - The Surgery Center or hospital where you are having surgery will call the afternoon before surgery (or Thursday for Thursday surgery) with a scheduled arrival time. - If you have not heard by 4 pm, please contact the surgery center above. Please be aware that emergency situations arise, which may delay or change your surgical time. If this happens, we will notify you as soon as possible and regret any inconvenience. Nicole Ortiz RN 05/06/17 11:10 am HOSP Observed: 04/30/2018 Status: COMPLETED Source: [place] 12:00 AM CLINIC OTHER CAMPUS REPOSITORY Patient:Pablo Sanchez MRN: <[id number]> Height:5' 10(1.778 m) Weight:212 lb (96.163 kg) Outpatient Medications as of 05/07/18: levothyroxine (SYNTHROID) 150 mcg tablet budesonide (PULMICORT) 0.5 mg/2 mL nebulizer solution ipratropium-albuterol (COMBIVENT RESPIMAT) 20-100 mcg/actuation mist albuterol (PROVENTIL) 2.5 mg /3 mL (0.083 %) nebulizer solution predniSONE (DELTASONE) 5 mg tablet Admission/Clinic Administered Medications as of 05/07/18: NaCl 0.9% iv infusion Problem List: SI (sacroiliac) joint dysfunction [M53.3] Midline low back pain with right-sided sciatica [M54.41] DDD (degenerative disc disease), lumbar [M51.36] Papillary thyroid carcinoma (HCC) [C73] Postoperative hypothyroidism [E89.0] High serum thyroglobulin [R79.89] Cervical lymphadenopathy [R59.0] COPD with chronic bronchitis (HCC) [J44.9] Allergies: Tetracyclines Date Verified: 05/07/18 Lab Values No results within the last 30 days for the following basenames: K,HCT Progress Notes ([facility]): Sonia Mirza LPN 04/23/2018 1:59 PM Attested Attestation signed by Dinh Lezama at 04/29/2018 4:34 PM Reviewed with patient, confirmed as documented by Sonia Mirza LPN. TO ROS: General: Generally feels radical neck dissection in February, has noted hemoptysis since then. Appetite good. Eyes, Ears, nose, throat: denies post nasal drip. denies rhinorrhea. denies purulent nasal discharge. denies epistaxis. notes hoarseness related to vocal cord paralysis. Vision stable. Cardiac: denies angina, denies edema, denies orthopnea. GI: notes heartburn. denies dysphagia. denies diarrhea. Uro/ASSISTANT TO THE VICE PRESIDENT: denies dysuria. denies hesitancy. denies nocturia. Menses: N/A Musculoskeletal: denies pain. Neuro: denies headache, denies focal weakness. denies tremor. Skin: denies rash. Otherwise negative. Dinh Lezama MD 04/23/2018 2:16 PM Signed Cough with blood is called hemoptysis. In an ex-smoker, the next step after CXR is flexible bronchoscopy with possible biopsy if any abnormality is seen in the trachea or bronchial tree below the vocal cords. I am looking at Thursday04/30/18 or Thursday05/07/18. Scheduling staff will call you to confirm date and time. Dinh Lezama MD, [facility] [address] [address] P: [phone] F: [phone] [email or web address] Dinh Lezama MD 04/29/2018 4:41 PM Signed [facility], 04/23/2018: INTERVAL HISTORY: Since last visit to this Pulmonary clinic 09/10/2017, has developed evidence of locally recurrent thyroid cancer, treated with I131. Describing hoarseness and recurrent/persistent hemoptysis over weeks. ENT evaluation confirms vocal cord paralysis but no source of hemoptysis. No purulent sputum, fever, rigors. LUO with activities of daily living. He claims consistent compliance with maintenance medications prescribed. PAST MEDICAL HISTORY Diagnosis Date - COPD (chronic obstructive pulmonary disease) (HCC) - COPD with chronic bronchitis (HCC) 09/10/2017 - Papillary thyroid carcinoma (HCC) - Postoperative hypothyroidism PAST SURGICAL HISTORY Procedure Laterality Date - COLONOSCOP W/ OR W/O BRSH SPEC 11/09/2014 Colonoscopy - THYROIDECTOMY 07/10/2015 Papillary thyroid carcinoma. Social History Substance Use Topics - Smoking status: Former Smoker Packs/day: 1.75 Years: 38.00 Types: Cigarettes Start date: 1975 Quit date: 04/03/2013 - Smokeless tobacco: Former User Comment: Parents smoked in childhood home. - Alcohol use Yes Comment: occasional ROS: Reviewed with patient, confirmed as documented by Sonia Mirza LPN. TO PHYSICAL EXAMINATION: BP 122/58 Pulse 76 Resp 17 Wt 212 lb (96.2kg) SpO2 96% Gen: No acute distress. Cooperative with examination. Not cachectic. ENT: Sclerae clear. Nares clear. Pharynx clear. No halitosis. Resp: No stridor, accessory respiratory muscle use, supra- sternal or intercostal retractions. A-P diameter normal. No crackles, wheezes, rubs. CV: Regular rythm. Heart tones normal. No carotid bruit. Radial pulses normal. Abd: Not distended. MSK: No kyphoscoliosis, joint deformities of the extremities. Ext: Warm and well perfused. No clubbing, cyanosis, edema, sclerodactyly, Raynaud's. Skin: Skin of anterior and bilateral neck erythematous and somewhat indurated, tender to touch. Otherwise color and texture normal. No other rash, eczema, urticaria, telangiectasia, ecchymoses. Neuro: Mental status normal. Affect normal. Muscle strength normal and symmetrical. No tremor. IMPRESSION AND RECOMMENDATIONS: Hemoptysis in ex-smoker. No source identified by ENT examination. - Current CXR. - Flexible bronchoscopy with possible biopsy. - I have discussed the indications, risks, alternatives and personnel involved in flexible bronchoscopy, and the patient has agreed to proceed. Informed consent is signed today. - Scheduling staff will call patient to confirm date and time. I addressed the questions of the patient, and he expressed understanding and acceptance of my answers. Dinh Lezama MD, [facility] [address] [place], [place] [id number] P: [phone] F: [phone] [email or web address] PROGRESS Observed: 04/29/2018 Status: COMPLETED Source: [place] 4:26 PM [facility] [place] REPOSITORY HNO ID: [id number] Author: Dinh Lezama Service: (none) Author Type: Physician Type: Progress Notes Filed: 04/29/2018 4:41 PM Note Text: [facility] [place], 04/23/2018: INTERVAL HISTORY: Since last visit to this Pulmonary clinic 09/10/2017, has developed evidence of locally recurrent thyroid cancer, treated with I131. Describing hoarseness and recurrent/persistent hemoptysis over weeks. ENT evaluation confirms vocal cord paralysis but no source of hemoptysis. No purulent sputum, fever, rigors. LUO with activities of daily living. He claims consistent compliance with maintenance medications prescribed. PAST MEDICAL HISTORY Diagnosis Date - COPD (chronic obstructive pulmonary disease) (HCC) - COPD with chronic bronchitis (HCC) 09/10/2017 - Papillary thyroid carcinoma (HCC) - Postoperative hypothyroidism PAST SURGICAL HISTORY Procedure Laterality Date - COLONOSCOP W/ OR W/O BRSH SPEC 11/09/2014 Colonoscopy - THYROIDECTOMY 07/10/2015 Papillary thyroid carcinoma. Social History Substance Use Topics - Smoking status: Former Smoker Packs/day: 1.75 Years: 38.00 Types: Cigarettes Start date: 1975 Quit date: 04/03/2013 - Smokeless tobacco: Former User Comment: Parents smoked in childhood home. - Alcohol use Yes Comment: occasional ROS: Reviewed with patient, confirmed as documented by Sonia Mirza LPN. TO PHYSICAL EXAMINATION: BP 122/58 Pulse 76 Resp 17 Wt 212 lb (96.2kg) SpO2 96% Gen: No acute distress. Cooperative with examination. Not cachectic. ENT: Sclerae clear. Nares clear. Pharynx clear. No halitosis. Resp: No stridor, accessory respiratory muscle use, supra- sternal or intercostal retractions. A-P diameter normal. No crackles, wheezes, rubs. CV: Regular rythm. Heart tones normal. No carotid bruit. Radial pulses normal. Abd: Not distended. MSK: No kyphoscoliosis, joint deformities of the extremities. Ext: Warm and well perfused. No clubbing, cyanosis, edema, sclerodactyly, Raynaud's. Skin: Skin of anterior and bilateral neck erythematous and somewhat indurated, tender to touch. Otherwise color and texture normal. No other rash, eczema, urticaria, telangiectasia, ecchymoses. Neuro: Mental status normal. Affect normal. Muscle strength normal and symmetrical. No tremor. IMPRESSION AND RECOMMENDATIONS: Hemoptysis in ex-smoker. No source identified by ENT examination. - Current CXR. - Flexible bronchoscopy with possible biopsy. - I have discussed the indications, risks, alternatives and personnel involved in flexible bronchoscopy, and the patient has agreed to proceed. Informed consent is signed today. - Scheduling staff will call patient to confirm date and time. I addressed the questions of the patient, and he expressed understanding and acceptance of my answers. Dinh Lezama MD, [facility] [place] [facility] [address] [place] [address] P: [phone] F: [phone] [email or web address] FRANKIE Observed: 04/23/2018 Status: COMPLETED Source: [place] 2:00 PM [facility] REPOSITORY Office Visit (PULMWS) PABLO SANCHEZ ([id number]) 1960 M Date Time Provider Department 04/23/18 2:00 PM DINH LEZAMA During your visit today, we recorded the following information about you: Pulse Respiration Blood pressure Weight 76/minute 17/minute 122/58 96.2 kg Sonia Mirza LPN 04/23/2018 1:59 PM Attested Attestation signed by Dinh Lezama at 04/29/2018 4:34 PM Reviewed with patient, confirmed as documented by Sonia Mirza LPN. TO ROS: General: Generally feels radical neck dissection in February, has noted hemoptysis since then. Appetite good. Eyes, Ears, nose, throat: denies post nasal drip. denies rhinorrhea. denies purulent nasal discharge. denies epistaxis. notes hoarseness related to vocal cord paralysis. Vision stable. Cardiac: denies angina, denies edema, denies orthopnea. GI: notes heartburn. denies dysphagia. denies diarrhea. Uro/ASSISTANT TO THE VICE PRESIDENT: denies dysuria. denies hesitancy. denies nocturia. Menses: N/A Musculoskeletal: denies pain. Neuro: denies headache, denies focal weakness. denies tremor. Skin: denies rash. Otherwise negative. Dinh Lezama MD 04/23/2018 2:16 PM Signed Cough with blood is called hemoptysis. In an ex-smoker, the next step after CXR is flexible bronchoscopy with possible biopsy if any abnormality is seen in the trachea or bronchial tree below the vocal cords. I am looking at Thursday04/30/18 or Thursday05/07/18. Scheduling staff will call you to confirm date and time. Dinh Lezama MD, [facility] [address] [place] [id number] P: [phone] F: [phone] [email or web address] Dinh Lezama MD 04/29/2018 4:41 PM Signed [facility], 04/23/2018: INTERVAL HISTORY: Since last visit to this Pulmonary clinic 09/10/2017, has developed evidence of locally recurrent thyroid cancer, treated with I131. Describing hoarseness and recurrent/persistent hemoptysis over weeks. ENT evaluation confirms vocal cord paralysis but no source of hemoptysis. No purulent sputum, fever, rigors. LUO with activities of daily living. He claims consistent compliance with maintenance medications prescribed. PAST MEDICAL HISTORY Diagnosis Date - COPD (chronic obstructive pulmonary disease) (HCC) - COPD with chronic bronchitis (HCC) 09/10/2017 - Papillary thyroid carcinoma (HCC) - Postoperative hypothyroidism PAST SURGICAL HISTORY Procedure Laterality Date - COLONOSCOP W/ OR W/O BRSH SPEC 11/09/2014 Colonoscopy - THYROIDECTOMY 07/10/2015 Papillary thyroid carcinoma. Social History Substance Use Topics - Smoking status: Former Smoker Packs/day: 1.75 Years: 38.00 Types: Cigarettes Start date: 1975 Quit date: 04/03/2013 - Smokeless tobacco: Former User Comment: Parents smoked in childhood home. - Alcohol use Yes Comment: occasional ROS: Reviewed with patient, confirmed as documented by Sonia Mirza LPN. TO PHYSICAL EXAMINATION: BP 122/58 Pulse 76 Resp 17 Wt 212 lb (96.2kg) SpO2 96% Gen: No acute distress. Cooperative with examination. Not cachectic. ENT: Sclerae clear. Nares clear. Pharynx clear. No halitosis. Resp: No stridor, accessory respiratory muscle use, supra- sternal or intercostal retractions. A-P diameter normal. No crackles, wheezes, rubs. CV: Regular rythm. Heart tones normal. No carotid bruit. Radial pulses normal. Abd: Not distended. MSK: No kyphoscoliosis, joint deformities of the extremities. Ext: Warm and well perfused. No clubbing, cyanosis, edema, sclerodactyly, Raynaud's. Skin: Skin of anterior and bilateral neck erythematous and somewhat indurated, tender to touch. Otherwise color and texture normal. No other rash, eczema, urticaria, telangiectasia, ecchymoses. Neuro: Mental status normal. Affect normal. Muscle strength normal and symmetrical. No tremor. IMPRESSION AND RECOMMENDATIONS: Hemoptysis in ex-smoker. No source identified by ENT examination. - Current CXR. - Flexible bronchoscopy with possible biopsy. - I have discussed the indications, risks, alternatives and personnel involved in flexible bronchoscopy, and the patient has agreed to proceed. Informed consent is signed today. - Scheduling staff will call patient to confirm date and time. I addressed the questions of the patient, and he expressed understanding and acceptance of my answers. Dinh Lezama MD, [facility] [place] [facility] [address] [place] [address] P: [phone] F: [phone] [email or web address] Referring Provider: SELF [[id number]] Allergies As of Date: 04/23/2018 Noted Allergy Reaction TETRACYCLINES 08/05/2015 2 - Rash Date Reviewed: 04/23/2018 Reviewed by: Dinh Lezama - Fully Assessed Primary Visit Diagnosis:Hemoptysis [R04.2] Other Visit Diagnoses:COPD with chronic bronchitis (HCC) [J44.9] Papillary thyroid carcinoma (HCC) [C73] Hoarseness [R49.0] Order(s):XR CHEST 2V FRONTAL/LAT [[id number]] Order #: [id number] FUTURE BRONCHOSCOPY [[id number]] Order #: [id number] FUTURE Prescriptions as of 04/23/2018 Sig: ALBUTEROL SULFATE 2.5 MG/3 ML* Use 3 mL via nebulizer every * BUDESONIDE 0.5 MG/2 ML SUSPEN* INHALE 2 ML BY NEBULIZER OVER* IPRATROPIUM 20 MCG-ALBUTEROL * Inhale 1 Puff as instructed f* LEVOTHYROXINE 150 MCG TABLET Take 2 tablets by mouth once * PREDNISONE 5 MG TABLET Take 3 tablets by mouth once * Problem List As Of Date 04/23/2018 Noted Resolved Special screening for malignant neoplasms, colo*INVALID FOR*11/09/2014 SI (sacroiliac) joint dysfunction [M53.3] INVALID FOR* Midline low back pain with right-sided sciatica*INVALID FOR* DDD (degenerative disc disease), lumbar [M51.36]INVALID FOR* Papillary thyroid carcinoma (HCC) [C73] INVALID FOR* Postoperative hypothyroidism [E89.0] INVALID FOR* High serum thyroglobulin [R79.89] INVALID FOR* Cervical lymphadenopathy [R59.0] INVALID FOR* COPD with chronic bronchitis (HCC) [J44.9] INVALID FOR* Notes for Staff Office will call to schedule surgery Other instructions from your clinician: Cough with blood is called hemoptysis. In an ex-smoker, the next step after CXR is flexible bronchoscopy with possible biopsy if any abnormality is seen in the trachea or bronchial tree below the vocal cords. I am looking at Thursday04/30/18 or Thursday05/07/18. Scheduling staff will call you to confirm date and time. Dinh Lezama MD, [facility] [place] [facility] [address] [place] [address] P: [phone] F: [phone] Visit Notes: >> Sonia Hermes GARRIDO ThuApr 23, 2018 1:51 PM Status: Attested ROS: General: Generally feels radical neck dissection in February, has noted hemoptysis since then. Appetite good. Eyes, Ears, nose, throat: denies post nasal drip. denies rhinorrhea. denies purulent nasal discharge. denies epistaxis. notes hoarseness related to vocal cord paralysis. Vision stable. Cardiac: denies angina, denies edema, denies orthopnea. GI: notes heartburn. denies dysphagia. denies diarrhea. Uro/ASSISTANT TO THE VICE PRESIDENT: denies dysuria. denies hesitancy. denies nocturia. Menses: N/A Musculoskeletal: denies pain. Neuro: denies headache, denies focal weakness. denies tremor. Skin: denies rash. Otherwise negative. Follow Up: Office will call to schedule surgery Follow-up and Disposition History Recorded Encounter Status:Closed by DINH LEZAMA MD on 04/29/18 EMERGENCY DEPARTMENT Observed: 04/15/2018 Status: F Source: [place] 2:32 PM [facility] REPOSITORY [facility] Medical Records Department [address] [address] Emergency Department Summary 04/15/18 1327 MR#: [id number] Acct: [id number] Name: PABLO SANCHEZ Rep #: [id number] : 1960 58 From: Odin Negrete MD PCP: Lauro Smith MD Status: REG ER History of Present Illness Chief Complaint: Cough Informant: Patient Onset: Month(s) - 2 Context: Onset with activity - since his ENT left neck surgery Timing: Intermittent - but daily; worse today Quality: small chunks of blood Current Severity: Moderate Maximum Severity: Moderate Worsened by: nothing Relieved by: nothing Associated Symptoms: copd/wheezing over past 1-2 mos, breathing normally in past several days Narrative: Patient states he has a paralyzed vocal cord due to his thyroid surgery, he had papillary carcinoma in his thyroid was removed. He recently had some abnormal lymph nodes with more cancer in them, which were removed in February from the left side of his neck. He states he has had a scope in the ENT office before and after his surgery. - Past Medical History (1) COPD (chronic obstructive pulmonary disease) Status: Chronic (2) Malignant neoplasm of thyroid gland Status: Chronic (3) Secondary and unspecified malignant neoplasm of lymph nodes of head, face and neck Status: Chronic Past Medical History - Allergies and Home Meds Allergies/Adverse Reactions: Allergies Tetracyclines Allergy (Verified 02/12/18 06:12) Rash Primary Care Physician: Lauro Smith MD [Primary Care Provider] - Surgical History: - - thyroid, left neck LND Smoking Status: Former smoker Review of Systems General: Denies: Chills, Fever, Sweats Eyes: Denies: Visual changes - bilaterally, Diplopia ENT: Denies: Rhinorrhea, Sore throat Cardiovascular: Denies: Chest pain, Palpitations, Heart racing Respiratory: Reports: Dyspnea - wheezing -- resolves w/ home breathing treatments, - - hemoptysis. Denies: Cough, Dyspnea on exertion Gastrointestinal: Denies: Abdominal pain, Nausea, Vomiting, Diarrhea, Melena, Hematochezia Genitourinary: Denies: Dysuria, Hematuria, Frequency Musculoskeletal: Denies: Back pain, Swelling, Extremity Pain Skin: Denies: Rash, Abscess Neurological: Denies: Headache, Weakness, Parasthesia, Numbness Allergy: Denies: Swelling of the mouth, Swelling of the tongue Physical Exam Vital Signs/Narrative: Vital Signs 04/15/18 12:46 98.2 F 103 H 16 132/92 H 96 Inital Vital Signs reviewed: Yes General: Well nourished, Well developed Head: Normocephalic, Atraumatic Eyes: Perrl, EOMI ENT: Moist mucous membranes, No rhinorrhea, - - Posterior oropharynx with some cobblestoning but otherwise clear with no bleeding or obvious source. Hoarse of voice. Neck: Supple, Nontender, - - thickened/firm but not distended or swollen left lateral neck surgical site. no evidence for infection or dehiscence or fluid collection. Cardiovascular: Regular rate, Regular rhythm, No murmurs Respiratory: No distress, CTA bilaterally, Chest nontender, Diminished - throughout Abdomen: Soft, Nontender, Nondistended Back: Nontender, Normal Inspection Extremities: Nontender, No edema Skin: Normal color, No rash Neurological: Alert, Oriented x3, Cranial nerves II-XII grossly intact, Normal Strength, Normal Sensation, Normal Gait Psychological: Normal affect Diagnostic/Tx/Re-eval Impressions Chest X-Ray 04/15/18 13:26 IMPRESSION: Hyperinflation. No acute abnormality is seen. Electronically Signed: Nash Pepe MD at 13:55 EST Tel [phone], Service support , 04/15/18 13:26 Chest PA and Lateral [RAD] Stat 04/15/18 13:57 CT Chest [Chest without Contrast] [CT] Stat Laboratory Results - Medical Decision Making Patient was amenable to blood count and a chest x-ray both of which are unremarkable. I discussed with Dr. Elam, his substation inspector. He states that the patient has been noncompliant with recommended treatments. He recommended physical therapy for the unusually high amount of scarring he developed in the left side of his neck, but the patient does not want to do that. He also recommended bronchoscopy, but states the patient refused several times, since he had a mass that was on or very close to his airway, and there is risk for the mass progressing into the tracheobronchial tree. I discussed this with the patient, he states that his doctor did not recommend bronchoscopy to him, he has no recollection of that. He states he is interested in that. I advised performing a CT scan without contrast, to lessen his risk for worsening any residual thyroid papillary carcinoma, however he is refusing that and states that he does not think he needs it. I discussed with him why I thought it was a good idea but he still pleasantly refuses and wants the referral information for pulmonary, and he does not want to see the group here he would [facility] go to [facility]. He is given referral information and advised to call for a follow-up as soon as possible, and if he reconsiders the CT scan, he is welcome to return. ED Disposition - Plan for ED Patient: Disposition: Home or Assisted Living Chief Complaint: GI Bleed Diagnosis: Hemoptysis, Secondary and unspecified malignant neoplasm of lymph nodes of head, face and neck Instructions: ED Hemoptysis Referrals: Lauro Smith MD [Primary Care Provider] - Dinh Lezama MD [NON-STAFF] - As soon as possible (Call for appointment) What to do if you have Problems For any increased pain, shortness of breath, bleeding, nausea or vomiting, chest pain, or any unexpected problems, contact your Primary Care Provider. Call [facility] ([phone]) or report to the closest Emergency Room. Call 911 if necessary. 04/15/18 1432 <Electronically signed by Odin Negrete MD> Date Odin Hendersonigndeshaun Signature (If Indicated): Date CC: Lauro Smith MD CBC W/DIFF, AUTOMATED Collected: 04/15/2018 Status: F Source: [place] 1:35 PM [facility] REPOSITORY TYPE CODE TESTS RESULT OUT OF RANGE REFERENCE UNITS LAB L100.1000 4.4-11.0 K/mm3 Normal WBC 10.6 LAB L100.1200 4.6-6.2 M/mm3 Normal RBC 5.07 LAB L100.1300 13.0-16.5 g/dl Normal HGB 16.1 LAB L100.1400 40-54 % Normal HCT 47.4 LAB L100.1500 80-94 fL Normal MCV 93.5 LAB L100.1600 27.0-32.0 pg Normal MCH 31.8 LAB L100.1700 32-36 g/gl Normal MCHC 34.0 LAB L100.1810 11.6-14.6 % Normal RDW CV 13.5 LAB L100.1820 35.1-43.9 fl High RDW SD 44.9 LAB L100.1900 150-450 K/mm3 Normal PLT 325 LAB L100.2000 6.2-12.0 fl Normal MPV 10.6 LAB L100.2100 47-70 % High NEUT% 85.0 LAB L100.2200 19-41 % Low LY% 7.3 LAB L100.2300 0-10 % Normal MONO% 4.3 LAB L100.2400 0-5 % Normal EO% 2.8 LAB L100.2500 0-1 % Normal BASO% 0.2 LAB L100.2550 0.0-0.9 % Normal IM GRAN % 0.400 Result Comment: IG% - Immature Granulocytes (promyelocytes, myelocytes and metamyelocytes) > 1% indicates that a LEFT SHIFT is Present. LAB L100.2620 2.0-7.7 X10 3/uL High Absolute Neut 9.0 LAB L100.2720 0.83-4.51 X10 3/ul Low Absolute Lymph 0.77 Performed By: #### L100.0100 #### [facility] [address] [place], [address] CHEST PA AND LATERAL Observed: 04/15/2018 Status: F Source: [place] 1:26 PM [facility] REPOSITORY [facility] Imaging Services [address] [place] [address] Chest PA and Lateral MR#: [id number] Acct: [id number] Name: PABLO SANCHEZ Rep #: [id number] : 1960 M 58 From: Nash Pepe MD PCP: Lauro Smith MD Status: REG ER Study: Chest PA and Lateral Date of Exam: 04/15/18 Exam# [id number] Ordering Dr: Odin Negrete MD STUDY: X-RAY CHEST REASON FOR EXAM: Male, 58 years old. Hemoptysis. TECHNIQUE: PA and lateral views of the chest. COMPARISON: Comparison is made with prior study dated March 28, 2017. FINDINGS: Hyperinflation. Scattered calcified granulomas. Decreased bronchovascular markings in both lungs suggestive of emphysematous changes. There is no demonstrated pleural abnormality. Normal size heart. Normal mediastinum and nely. Normal visualized pulmonary arteries. Normal visualized aortic arch and descending thoracic aorta. There is demineralization of the osseous structures. Normal visualized ribs, clavicles, and shoulders. There is no demonstrated abnormality of the visualized soft tissue structures of the upper abdomen. RAD/Chest PA and Lateral IMPRESSION: Hyperinflation. No acute abnormality is seen. Electronically Signed: Nash Pepe MD at 13:55 EST Tel [phone], Service support , CC: ODIN NEGRETE MD; Lauro Smith MD Typewriter Aligner: Signed 12 LEAD ELECTROCARDIOGRAM Observed: 02/18/2018 Status: F Source: [place] 11:36 AM [facility] REPOSITORY [facility] Cardiovascular Services [address] [place] [address] 12 Lead EKG 02/12/18 0611 MR#: [id number] Acct: [id number] Name: PABLO SANCHEZ Rep #: [id number] : 1960 58 From: Clint Lezama MD Attending Dr: Washington Elam MD Status: DIS APRIL Ordering Dr: Washington Elam MD Date: 02/12/18 Location: [facility] Sex: M C Admitted: 02/12/18 Test Reason : PRE-OP Blood Pressure : / mmHG Vent. Rate : 094 BPM Atrial Rate : 094 BPM P-R Int : 156 ms QRS Dur : 092 ms QT Int : 348 ms P-R-T Axes : 072 072 061 degrees QTc Int : 435 ms Normal sinus rhythm Normal ECG Confirmed by TEJA ROBIN, CLINT ([id number]), magazine editor ALEX COOK ([id number]) on 02/18/2018 11:35:40 AM Referred By: [place] Elam Confirmed By:CLINT LEZAMA MD 02/18/18 1135 Date Clint Lezama MD CC: Lauro Smith MD; Washington Elam MD Signed CNPN Observed: 02/15/2018 Status: COMPLETED Source: [place] 12:00 AM [facility] REPOSITORY Telephone ([employer]) ALTAGRACIAPABLO ([id number]) 1960 M Date Time Provider Department 02/15/18 SHAZIA ADAN During your visit today, we recorded the following information about you: Luis Enrique Arce Ma 02/15/2018 11:11 AM Signed Form on docs desk/basket for review from [facility]. Please review Shazia Adan MD 02/15/2018 12:39 PM Signed Reviewed, this is post surgical note I will get this scanned in this chart Shazia Adan MD 02/15/18 Luis Enrique Arce Ma 02/22/2018 9:35 AM Signed Received office note for follow up on 02-19-2018. Sent to scanning. Luis Enrique Arce Ma 02/22/2018 10:15 AM Signed Received office note for follow up on 02/22/18. Sent to Scanning. Luis Enrique Arce Ma 02/25/2018 11:10 AM Signed Received office note from 02/25/18 patient does not feel his throat is getting better, and he could not talk this morning. Sent to Scanning Luis Enrique Arce Ma 03/04/2018 10:39 AM Signed Received office note from ENT. Patient had follow up on 03/04/18. Patient is still having throat pain in the morning and hoarseness. He had a lot of fluid in his neck, yesterday it went down a lot. Sent to Scanning Shazia Adan MD 03/04/2018 11:02 AM Signed Noted, reviewed This is all managed by his ENT Shazia Adan MD 03/04/18 Luis Enrique Arce Ma 03/15/2018 1:29 PM Signed Received another patient update from ENT. Patient is still having complications from surgery. Sent to Scanning Luis Enrique Arce Ma 04/05/2018 2:58 PM Signed Received fax from ENT on 04/05/18 and patient states he is feeling the same. He is coughing up some blood. FYI SENT TO SCANNING Allergies As of Date: 02/15/2018 Noted Allergy Reaction TETRACYCLINES 08/05/2015 2 - Rash Date Reviewed: 01/14/2018 Reviewed by: Katalina Portillo - Fully Assessed Reason for Visit: Office Note [Other] Cmt: [facility] Prescriptions as of 02/15/2018 Sig: X ARMOUR THYROID 240 MG TABLET Take 1 tablet by mouth six ti* BUDESONIDE 0.5 MG/2 ML SUSPEN* INHALE 2 ML BY NEBULIZER OVER* IPRATROPIUM 20 MCG-ALBUTEROL * Inhale 1 Puff as instructed f* ALBUTEROL SULFATE 2.5 MG/3 ML* Use 3 mL via nebulizer every * PREDNISONE 5 MG TABLET Take 3 tablets by mouth once * Problem List As Of Date 02/15/2018 Noted Resolved Special screening for malignant neoplasms, colo*INVALID FOR*11/09/2014 SI (sacroiliac) joint dysfunction [M53.3] INVALID FOR* Midline low back pain with right-sided sciatica*INVALID FOR* DDD (degenerative disc disease), lumbar [M51.36]INVALID FOR* Papillary thyroid carcinoma (HCC) [C73] INVALID FOR* Postoperative hypothyroidism [E89.0] INVALID FOR* High serum thyroglobulin [R79.89] INVALID FOR* Cervical lymphadenopathy [R59.0] INVALID FOR* COPD with chronic bronchitis (HCC) [J44.9] INVALID FOR* Encounter Status:Closed by LUIS ENRIQUE ARCE MA on 02/22/18 DISCHARGE INSTRUCTION Observed: 02/13/2018 Status: F Source: [place] 9:10 AM [facility] REPOSITORY [facility] Medical Records Department [address] [place] [address] Instructions for Home/Discharge Instructions 02/13/1809 MR#: [id number] Acct: [id number] Name: PABLO SANCHEZ Rossy Rep #: [id number] : 1960 58 From: Washington Elam MD PCP: Lauro Smith MD Status: ADM APRIL - Discharge Diagnoses Current Active Problems: Current Active and Chronic Problems Secondary and unspecified malignant neoplasm of lymph nodes of head, face and neck (Acute) Malignant neoplasm of thyroid gland (Acute) You will use the following diet at home:: Regular Discharge Activity: Return to Normal Activity Call your doctor if your incision/area has: Sudden Increased Bleeding, Increased Redness, Swelling at the incision site Call your doctor if you observe: Fever of 101 or Higher, Uncontrolled pain Suture Line Care: Avoid Pulling/Pushing Drain: - - drain fluid collected in bulb at least twice a day Allergies/Adverse Reactions: Allergies Tetracyclines Allergy (Verified 02/12/18 06:12) Rash Medications to take at Discharge Albuterol Inhaler [Ventolin Hfa (SP)] 2 puff INHALATION Q4H PRN PRN 11/28/15 Albuterol Aerosols [Ventolin Aerosols] 2.5 mg INHALATION Q6H PRN PRN 06/28/16 Budesonide/Formoterol Fumarate [Symbicort 160-4.5 Mcg Inhaler] 2 puff IH BID 06/28/16 Thyroid [Butte Thyroid] 240 mcg PO DAILY 11/15/16 Prednisone [Deltasone] 15 mg PO DAILY 03/28/17 Primary Care Physician: Lauro Smith MD [Primary Care Provider] - Test Results: Test results from this visit will be discussed in further detail at your follow-up appointment, if applicable. Please Follow Up With: Washington Elam MD When: 2 days 02/13/18 0910 <Electronically signed by Washington Elam MD> Date Washington Elam MD CC: Lauro Smith MD CALCIUM,TOTAL Collected: 02/13/2018 Status: F Source: [place] 7:14 AM [facility] REPOSITORY TYPE CODE TESTS RESULT OUT OF RANGE REFERENCE UNITS LAB L501.2200 8.5-10.1 mg/dL Low CA 7.6 Performed By: #### L501.2200 #### [facility] [address] [place], [place], [id number] CALCIUM,TOTAL Collected: 02/12/2018 Status: F Source: [place] 4:10 PM [facility] REPOSITORY TYPE CODE TESTS RESULT OUT OF RANGE REFERENCE UNITS LAB L501.2200 8.5-10.1 mg/dL Low CA 8.0 Performed By: #### L501.2200 #### [facility] [address] [place], [address] PTHIN Collected: 02/12/2018 Status: F Source: [place] 4:10 PM [facility] REPOSITORY TYPE CODE TESTS RESULT OUT OF RANGE REFERENCE UNITS LAB L509.1000 18.4-80.1 pg/mL Normal PTHIN 53.9 Performed By: #### L509.1000 #### [facility] [address] [place], [address] CBC-COMPLETE BLOOD CNT Collected: 02/12/2018 Status: F Source: [place] NO DIFF 6:15 AM [facility] REPOSITORY TYPE CODE TESTS RESULT OUT OF RANGE REFERENCE UNITS LAB L100.1000 4.4-11.0 K/mm3 Normal WBC 7.4 LAB L100.1200 4.6-6.2 M/mm3 Normal RBC 4.86 LAB L100.1300 13.0-16.5 g/dl Normal HGB 15.4 LAB L100.1400 40-54 % Normal HCT 45.5 LAB L100.1500 80-94 fL Normal MCV 93.6 LAB L100.1600 27.0-32.0 pg Normal MCH 31.7 LAB L100.1700 32-36 g/gl Normal MCHC 33.8 LAB L100.1810 11.6-14.6 % Normal RDW CV 13.3 LAB L100.1820 35.1-43.9 fl High RDW SD 44.4 LAB L100.1900 150-450 K/mm3 Normal PLT 305 LAB L100.2000 6.2-12.0 fl Normal MPV 10.6 Performed By: #### L100.0500, L500.2500, L500.3400, L501.9520 #### [facility] [address] [place], [address] BASIC METABOLIC Collected: 02/12/2018 Status: F Source: [place] PROFILE (BMP) 6:15 AM [facility] REPOSITORY TYPE CODE TESTS RESULT OUT OF RANGE REFERENCE UNITS LAB L501.0100 74-106 mg/dL High GLU 112 Result Comment: Fasting Glucose result from 100 to 125 mg/dL suggests IMPAIRED HOMEOSTASIS per A.D.A. criteria. Please note revised GLUCOSE reference range effective 2017. LAB L501.1000 7-18 mg/dL High BUN 19 LAB L501.1100 0.70-1.30 mg/dL Normal CREAT,SERUM 1.01 Result Comment: The validity of the calculated GFR AND GFRAA in patients over 70 years has not been determined. Clinical correlation is essential. LAB L501.1110 >60 mL/min Normal EST GFR 80 Result Comment: Non- GFR Calc LAB L501.1115 >60 mL/min Normal EST GFR - AA 97 Result Comment: GFR Calc LAB L501.1255 ml/min Normal Estimated CRCL 81.31 LAB L501.1300 10-20 RATIO Normal BUN/CRE 18.8 LAB L501.2200 8.5-10 mg/dL Low .1 CA 8.0 LAB L501.5300 136-14 mmol/L Normal 5 NA 141 LAB L501.5600 3.5-5. mmol/L Normal 1 K 3.8 LAB L501.5900 98-107 mmol/L High CL 110 LAB L501.6100 21.0-3 mmol/L Normal 2.0 CO2 23.0 LAB L501.6200 5-15 Normal GAP 8 Performed By: #### L100.0500, L500.2500, L500.3400, L501.9520 #### [facility] [address] [place], [place], [id number] LIVER PROFILE Collected: 02/12/2018 Status: F Source: [place] 6:15 AM [facility] REPOSITORY TYPE CODE TESTS RESULT OUT OF RANGE REFERENCE UNITS LAB L501.1500 6.4-8.2 g/dL Normal T PROT 6.8 LAB L501.1800 3.2-5.0 g/dL Normal ALB 3.5 LAB L501.1950 2.2-4.2 g/dL Normal GLOB 3.3 LAB L501.4100 15-37 U/L Normal AST 20 LAB L501.4305 45-117 U/L Normal ALK P 62 LAB L501.4405 16-61 U/L Normal ALT 40 LAB L501.4600 0.20-1.00 mg/dL Normal T BILI 0.70 LAB L501.4700 0.00-0.30 mg/dL Normal D BILI 0.14 Performed By: #### L100.0500, L500.2500, L500.3400, L501.9520 #### [facility] [address] [place], [place], [id number] THYROID STIM HORMONE Collected: 02/12/2018 Status: F Source: [place] (TSH) 6:15 AM [facility] REPOSITORY TYPE CODE TESTS RESULT OUT OF RANGE REFERENCE UNITS LAB L501.9520 0.358-3.74 uIU/mL Normal TSH 1.97 Performed By: #### L100.0500, L500.2500, L500.3400, L501.9520 #### [facility] [address] [place], [address] PROTHROMBIN TIME W/INR Collected: 02/12/2018 Status: F Source: [place] 6:15 AM [facility] REPOSITORY TYPE CODE TESTS RESULT OUT OF RANGE REFERENCE UNITS LAB L300.4150 11.7-14.9 SECONDS Normal PROTIME 13.6 LAB L300.4200 Normal INR 1.0 Performed By: #### L300.3900, L300.4310 #### [facility] [address] [place], [address] PARTIAL THROMBOPLAST Collected: 02/12/2018 Status: F Source: OUT[place] TIME 6:15 AM [facility] REPOSITORY TYPE CODE TESTS RESULT OUT OF RANGE REFERENCE UNITS LAB L300.4310 24.1-36.2 Seconds Normal PTT 30.3 Performed By: #### L300.3900, L300.4310 #### [facility] [address] [place], [address] SOFT TISSUE Observed: 02/12/2018 Status: F Source: [place] 12:00 AM [facility] REPOSITORY Patient: PABLO SANCHEZ : 1960 (58/M) Acct Num: [id number] Phys: Washington Elam MD Unit Num: [id number] Loc: MS3 [id number] Specimen: [id number] Received: 02/12/181500 Spec Type: SOFT TISS TISSUES 1 TISSUES: Neck, NOS COMMENT Level 4 and level 7 lymph nodes are positive for metastatic papillary thyroid carcinoma and measures 2.5 and 2 cm in greatest dimension, respectively. They are almost completely replaced by the metastatic tumor. Extranodal extension is noted. Please make reference to previous specimen ([id number]), fine needle aspiration, left thyroid nodule with diagnosis of papillary carcinoma follicular variant and ([id number]) thyroid gland, total thyroidectomy with diagnosis of papillary thyroid carcinoma, multifocal. This case is discussed with Dr. Elam on 02/15/18. Case has been reviewed in consultation with Dr. Slaughter who concurs with the above diagnosis. IDC:AM GROSS DESCRIPTION Received in fixative is one container labeled with the patient's name and designated modified radical neck dissection with anterior compartment for metastatic thyroid carcinoma, neck levels are labeled. The specimen consists of a piece of fibroadipose tissue with levels of lymph nodes are labeled on a towel also stitched to it for orientation and measuring 21.5 x 8 x 2 cm. Level 7 lymph node is present separately. Level I - Three possible lymph nodes including salivary gland tissue are identified. Sections are submitted in three cassettes as follows: 1 - one bisected lymph node, 2 - salivary gland tissue, 3 - salivary gland tissue and one lymph node inked black. Level 2 - Seven possible lymph nodes are identified. Sections are submitted as follows: 4 - three lymph nodes, 5 - four lymph nodes. Level 3 - Three possible lymph nodes are identified in level 3 and sections are submitted as follows: possible lymph nodes, cassette 6. Level 4- Two lymph nodes are identified, one smaller lymph node measuring 0.5 cm and the second larger lymph node measuring 2.5 cm in greatest dimension. Sections of the larger lymph node reveal possible gross involvement by the tumor. Sections are submitted as follows: 7 AND 8 - serially sectioned larger lymph node, 9 - one lymph node. Level 5 - Ten possible lymph nodes are identified measuring 0.2 to 0.5 cm in greatest dimension. Sections are submitted as follows: Cassette 10 - two lymph nodes, 11 AND 12 - multiple lymph nodes. Level 6 - Seven possible lymph nodes are identified in level 6 and Sections are submitted as follows: 13 - multiple lymph nodes, 14 - one bisected lymph node. Level 7 - The specimen is present as a separate piece of tissue and measures 2 x 1 x 0.5 cm and it is bisected and submitted entirely in cassette 15. The lymph nodes are submitted in entirety. The lymph nodes measures 0.2 to 2.5 cm in greatest dimension. / SJ:rg 02/12/18 The specimen is further dissected for more possible lymph nodes. The salivary gland tissue at level 1 measures approximately 4 x 3 x 1 cm. Additional patient admitting representative sections are submitted as follows: 16 - level 1, salivary gland tissue, 17 - level 2, possible lymph nodes, 18 - level 3, possible lymph nodes, 19 - level 5, possible lymph nodes, 20 - level 6, possible lymph nodes. / SJ:windy 02/15/18 TC:0 CPT: 67807 HEADER OPERATION: Left neck, modified radical dissection PRE-OP DIAGNOSIS: Papillary thyroid carcinoma, secondary malignant neoplasm of lymph nodes of neck TISSUE SUBMITTED: Modified radical left neck dissection with anterior compartment for metastatic thyroid carcinoma - neck levels labeled on specimen MICROSCOPIC DESCRIPTION Slides are reviewed. MICROSCOPIC DIAGNOSIS Neck, modified radical neck dissection: Two out of 33 lymph nodes positive for metastatic carcinoma. See comment. Level 1 lymph node - two out of two lymph nodes negative for metastatic carcinoma. Salivary gland tissue, no pathologic diagnosis. Level 2 lymph node - eight out of eight lymph nodes negative for metastatic carcinoma. Level 3 lymph node - one out of one lymph node negative for metastatic carcinoma. Level 4 lymph node - one out of three lymph nodes positive for metastatic papillary thyroid carcinoma. Level 5 lymph node - nine out of nine lymph nodes negative for metastatic carcinoma. Level 6 lymph node - nine out of nine lymph nodes negative for metastatic carcinoma. Level 7 lymph node - one lymph node, positive for metastatic papillary thyroid carcinoma. SJ:windy 02/15/18 Signed Tomer Petersen 02/16/18 <signature on file> Performed By: #### PSOF #### [facility] [address] [place] [address]. [place], [place], [id number] PROGRESS Observed: 01/14/2018 Status: COMPLETED Source: [place] 10:09 AM [facility] REPOSITORY O ID: [id number] Author: Katalina Portillo Service: (none) Author Type: Physician Type: Progress Notes Filed: 01/14/2018 12:08 PM Note Text: New patient HANDP PATIENT NAME: Pablo Sanchez Assessment ASSESSMENT/PLAN: (R59.0) Lymphadenopathy, cervical (primary encounter diagnosis) (C73) Papillary thyroid carcinoma (HCC) Pablo presents with cervical lymphadenopathy concerning for recurrent papillary thyroid cancer. We'll proceed with ultrasound-guided fine-needle aspiration today. I will call him with these results. Office Visit on 01/14/18 -SURGICAL PATHOLOGY SUBJECTIVE CHIEF COMPLAINT: Patient presents with: Consult: Cervical Lymphadenopathy INTERVAL HISTORY OF PRESENT ILLNESS: Pablo is a 58-year-old gentleman with a history of papillary thyroid cancer diagnosed in 2016. He presents today with new lymphadenopathy of the left cervical area. He does not palpate a mass and denies symptoms. HISTORIES: PAST MEDICAL HISTORY Diagnosis Date - COPD (chronic obstructive pulmonary disease) (HCC) - COPD with chronic bronchitis (HCC) 09/10/2017 - Papillary thyroid carcinoma (HCC) - Postoperative hypothyroidism PAST SURGICAL HISTORY Procedure Laterality Date - COLONOSCOP W/ OR W/O [facility] SPEC 11/09/2014 Colonoscopy - THYROIDECTOMY 07/10/2015 Papillary thyroid carcinoma. ALLERGIES: Tetracyclines MEDICATIONS: Current Outpatient Prescriptions: ARMOUR THYROID 240 mg tab Take 1 tablet by mouth six times a week. And half tablet on sundays budesonide (PULMICORT) 0.5 mg/2 mL nebulizer solution INHALE 2 ML BY NEBULIZER OVER 5-15 MINUTES EVERY 12 HOURS. ipratropium-albuterol (COMBIVENT RESPIMAT) 20-100 mcg/actuation mist Inhale 1 Puff as instructed four times daily as needed. albuterol (PROVENTIL) 2.5 mg /3 mL (0.083 %) nebulizer solution Use 3 mL via nebulizer every 6 hours as needed. OVER 5-15 MINUTES. FOR WHEEZING AND SHORTNESS OF BREATH. predniSONE (DELTASONE) 5 mg tablet Take 3 tablets by mouth once daily. No current facility-administered medications for this visit. 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 Social History Main Topics Smoking status: Former Smoker Packs/day: 1.75 Years: 38.00 Types: Cigarettes Start date: 1975 Quit date: 04/03/2013 Smokeless tobacco: Former User Comment: Parents smoked in childhood home. Alcohol use: Yes Comment: occasional Drug use: No Reviewed and agreed with Review of Systems completed by the clinical staff. OBJECTIVE PHYSICAL EXAM: BP 144/84 Pulse 97 Ht 5' 10 (1.78m) Wt 202 lb (91.6kg) BMI 28.98 kg/(m2). General: Well developed, well-nourished, in no distress HEENT: Normocephalic, atraumatic. Extraocular movements intact. Sclera are nonicteric. Neck: Supple, thyroid is surgically absent, I do not palpate a distinct lymph node. Heart: Regular rate and rhythm, no murmur Lungs: Clear to auscultation, without wheezes Extremities: No edema Neurologic: Alert, oriented, and appropriate. DATA: Diagnostic tests reviewed for today's visit: Ultrasound was reviewed. There are 2 lymph nodes in the left paramedian neck measuring 2.2 cm and 1.1 cm. Katalina Portillo MD UNIVERSAL PROTOCOL / SAFETY CHECKLIST Procedure to be performed: Ultrasound guided left neck lymph node fine needle aspiration Sign in Communication: Completed Time Out: Team Confirms the Correct Patient, Correct Procedure, Correct Site and Site Marking, Correct Position (if applicable), Prep and Dry Time (if applicable). Time: 10:09 AM Affirmation of Time Out: YES Procedure: After informed consent was obtained, the skin of the left anterior neck was prepped with ChloraPrep and anesthetized with 1% lidocaine with epinephrine. The ultrasound probe was placed over the enlarged lymph node located at level . Using ultrasound guidance a fine-needle aspiration was performed with a 21-gauge needle. The specimen was placed in CytoLyt. Pressure was held for hemostasis. Band-Aid was applied. The patient tolerated the procedure well. The second enlarged lymph node was not identified in my office today. Sign Out Discussion: Completed Katalina Portillo MD CYTOLOGY Observed: 01/14/2018 Status: F Source: [place] 10:09 AM [facility] REPOSITORY Specimen originated from [facility] Specimen #: [id number] Submitting Physician: KATALINA PORTILLO MD SPECIMEN SUBMITTED A: LEFT CERVICAL LYMPH NODE, FINE NEEDLE ASPIRATE (THINPREP AND CELL BLOCK) FINAL DIAGNOSIS A. LEFT CERVICAL LYMPH NODE, FINE NEEDLE ASPIRATE (THINPREP AND CELL BLOCK) Positive for malignant cells. Papillary thyroid carcinoma. Seen in consultation with Dr. Buzz Mathis. Chandler Fernandes M.D. (Electronic Signature) CLINICAL DATA History of papillary thyroid cancer with new left cervical lymph node GROSS DESCRIPTION 30cc Hazy, Red CytoLyt with Material STAINS A: LEFT CERVICAL LYMPH NODE, FINE NEEDLE ASPIRATE (THINPREP AND CELL BLOCK) THIN PREP Non-News Department Intern, CELL BLOCK, H&E, Initial Date of Report: 01/15/2018 Date of Procedure: 01/14/2018 Date of Receipt: 01/14/2018 Submitted by: KATALINA PORTILLO MD Location: [facility] Diagnostic interpretation performed at [facility], [address] [place] [address]. CNOV Observed: 01/14/2018 Status: COMPLETED Source: [place] 10:00 AM [facility] REPOSITORY Office Visit (CAILIN) PABLO SANCHEZ ([id number]) 1960 M Date Time Provider Department 01/14/18 10:00 AM KATALINA PORTILLO During your visit today, we recorded the following information about you: Pulse Blood pressure Weight Height 97/minute 144/84 91.6 kg 1.778 m Xi Wagner LPN 01/14/2018 12:08 PM Signed GENERAL:No weight loss, No malaise, No fevers HEENT:Negative for frequent or significant headaches, No changes in hearing or vision, no nose bleeds or other nasal problems CARDIOVASCULAR: Negative for chest pain, Negative for leg swelling, Negative for palpitaions RESPIRATORY:Negative for cough, Negative for wheezing , Negative for shortness of breath GASTROINTESTINAL: Negative for abdominal discomfort, Negative for blood in stools, Negative for black stools and Negative for change in bowel habits GENITOURINARY: No history of dysuria, frequency or incontinence. ENDOCRINE:None MUSCULOSKELETAL: Negative for joint pain , Negative for swelling, Negative for muscle pain, Positive for:, back pain NEUROLOGIC:Negative for focal numbness Negative for weakness Negative for headache Negative for syncope Negative for dizziness HEMATOLOGIC/LYMPHATIC/IMMUNOLOGIC:Positive for: and Bleeding or bruising tendancy Katalina Portillo MD 01/14/2018 12:08 PM Signed New patient HANDP PATIENT NAME: Pablo Sanchez Assessment ASSESSMENT/PLAN: (R59.0) Lymphadenopathy, cervical (primary encounter diagnosis) (C73) Papillary thyroid carcinoma (HCC) Pablo presents with cervical lymphadenopathy concerning for recurrent papillary thyroid cancer. We'll proceed with ultrasound-guided fine- needle aspiration today. I will call him with these results. Office Visit on 01/14/18 -SURGICAL PATHOLOGY SUBJECTIVE CHIEF COMPLAINT: Patient presents with: Consult: Cervical Lymphadenopathy INTERVAL HISTORY OF PRESENT ILLNESS: Pablo is a 58-year-old gentleman with a history of papillary thyroid cancer diagnosed in 2015. He presents today with new lymphadenopathy of the left cervical area. He does not palpate a mass and denies symptoms. HISTORIES: PAST MEDICAL HISTORY Diagnosis Date - COPD (chronic obstructive pulmonary disease) (HCC) - COPD with chronic bronchitis (HCC) 09/10/2017 - Papillary thyroid carcinoma (HCC) - Postoperative hypothyroidism PAST SURGICAL HISTORY Procedure Laterality Date - COLONOSCOP W/ OR W/O [facility] SPEC 11/09/2014 Colonoscopy - THYROIDECTOMY 07/10/2015 Papillary thyroid carcinoma. ALLERGIES: Tetracyclines MEDICATIONS: Current Outpatient Prescriptions: ARMOUR THYROID 240 mg tab Take 1 tablet by mouth six times a week. And half tablet on sundays budesonide (PULMICORT) 0.5 mg/2 mL nebulizer solution INHALE 2 ML BY NEBULIZER OVER 5-15 MINUTES EVERY 12 HOURS. ipratropium-albuterol (COMBIVENT RESPIMAT) 20-100 mcg/actuation mist Inhale 1 Puff as instructed four times daily as needed. albuterol (PROVENTIL) 2.5 mg /3 mL (0.083 %) nebulizer solution Use 3 mL via nebulizer every 6 hours as needed. OVER 5-15 MINUTES. FOR WHEEZING AND SHORTNESS OF BREATH. predniSONE (DELTASONE) 5 mg tablet Take 3 tablets by mouth once daily. No current facility-administered medications for this visit. 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 Social History Main Topics Smoking status: Former Smoker Packs/day: 1.75 Years: 38.00 Types: Cigarettes Start date: 1975 Quit date: 04/03/2013 Smokeless tobacco: Former User Comment: Parents smoked in childhood home. Alcohol use: Yes Comment: occasional Drug use: No Reviewed and agreed with Review of Systems completed by the clinical staff. OBJECTIVE PHYSICAL EXAM: BP 144/84 Pulse 97 Ht 5' 10 (1.78m) Wt 202 lb (91.6kg) BMI 28.98 kg/(m2). General: Well developed, well-nourished, in no distress HEENT: Normocephalic, atraumatic. Extraocular movements intact. Sclera are nonicteric. Neck: Supple, thyroid is surgically absent, I do not palpate a distinct lymph node. Heart: Regular rate and rhythm, no murmur Lungs: Clear to auscultation, without wheezes Extremities: No edema Neurologic: Alert, oriented, and appropriate. DATA: Diagnostic tests reviewed for today's visit: Ultrasound was reviewed. There are 2 lymph nodes in the left paramedian neck measuring 2.2 cm and 1.1 cm. Katalina Portillo MD UNIVERSAL PROTOCOL / SAFETY CHECKLIST Procedure to be performed: Ultrasound guided left neck lymph node fine needle aspiration Sign in Communication: Completed Time Out: Team Confirms the Correct Patient, Correct Procedure, Correct Site and Site Marking, Correct Position (if applicable), Prep and Dry Time (if applicable). Time: 10:09 AM Affirmation of Time Out: YES Procedure: After informed consent was obtained, the skin of the left anterior neck was prepped with ChloraPrep and anesthetized with 1% lidocaine with epinephrine. The ultrasound probe was placed over the enlarged lymph node located at level . Using ultrasound guidance a fine-needle aspiration was performed with a 21-gauge needle. The specimen was placed in CytoLyt. Pressure was held for hemostasis. Band-Aid was applied. The patient tolerated the procedure well. The second enlarged lymph node was not identified in my office today. Sign Out Discussion: Completed Katalina Portillo MD Referring Provider: SHAZIA ADAN [[id number]] Allergies As of Date: 01/14/2018 Noted Allergy Reaction TETRACYCLINES 08/05/2015 2 - Rash Date Reviewed: 01/14/2018 Reviewed by: Katalina Portillo - Fully Assessed Reason for Visit: Consult [[id number]] Cmt: Cervical Lymphadenopathy Primary Visit Diagnosis:Lymphadenopathy, cervical [R59.0] Other Visit Diagnosis:Papillary thyroid carcinoma (HCC) [C73] Order(s):SURGICAL PATHOLOGY [[id number]] Order #: [id number] Prescriptions as of 01/14/2018 Sig: ARMOUR THYROID 240 MG TABLET Take 1 tablet by mouth six ti* BUDESONIDE 0.5 MG/2 ML SUSPEN* INHALE 2 ML BY NEBULIZER OVER* IPRATROPIUM 20 MCG-ALBUTEROL * Inhale 1 Puff as instructed f* ALBUTEROL SULFATE 2.5 MG/3 ML* Use 3 mL via nebulizer every * PREDNISONE 5 MG TABLET Take 3 tablets by mouth once * Problem List As Of Date 01/14/2018 Noted Resolved Special screening for malignant neoplasms, colo*INVALID FOR*11/09/2014 SI (sacroiliac) joint dysfunction [M53.3] INVALID FOR* Midline low back pain with right-sided sciatica*INVALID FOR* DDD (degenerative disc disease), lumbar [M51.36]INVALID FOR* Papillary thyroid carcinoma (HCC) [C73] INVALID FOR* Postoperative hypothyroidism [E89.0] INVALID FOR* High serum thyroglobulin [R79.89] INVALID FOR* Cervical lymphadenopathy [R59.0] INVALID FOR* COPD with chronic bronchitis (HCC) [J44.9] INVALID FOR* Encounter Status:Closed by KATALINA PORTILLO MD on 01/14/18 PROGRESS Observed: 01/14/2018 Status: COMPLETED Source: [place] 9:44 AM [facility] REPOSITORY HNO ID: [id number] Author: Xi Wagner LPN Service: (none) Author Type: (none) Type: Progress Notes Filed: 01/14/2018 12:08 PM Note Text: GENERAL:No weight loss, No malaise, No fevers HEENT:Negative for frequent or significant headaches, No changes in hearing or vision, no nose bleeds or other nasal problems CARDIOVASCULAR: Negative for chest pain, Negative for leg swelling, Negative for palpitaions RESPIRATORY:Negative for cough, Negative for wheezing , Negative for shortness of breath GASTROINTESTINAL: Negative for abdominal discomfort, Negative for blood in stools, Negative for black stools and Negative for change in bowel habits GENITOURINARY: No history of dysuria, frequency or incontinence. ENDOCRINE:None MUSCULOSKELETAL: Negative for joint pain , Negative for swelling, Negative for muscle pain, Positive for:, back pain NEUROLOGIC:Negative for focal numbness Negative for weakness Negative for headache Negative for syncope Negative for dizziness HEMATOLOGIC/LYMPHATIC/IMMUNOLOGIC:Positive for: and Bleeding or bruising tendancy FREE T3 Collected: 01/05/2018 Status: F Source: [place] 10:32 AM [facility] REPOSITORY TYPE CODE TESTS RESULT OUT OF RANGE REFERENCE UNITS LAB FREET3 2.3-4.1 pg/mL High Free T3 4.6 Performed By: #### FREET3, FT4, TSH, TG #### [place] [id number] FREE T4 Collected: 01/05/2018 Status: F Source: [place] 10:32 AM [facility] REPOSITORY TYPE CODE TESTS RESULT OUT OF RANGE REFERENCE UNITS LAB FT4 0.9-1.7 ng/dL Low Free T4 0.8 Performed By: #### FREET3, FT4, TSH, TG #### [place] [id number] TSH Collected: 01/05/2018 Status: F Source: [place] 10:32 AM [facility] REPOSITORY TYPE CODE TESTS RESULT OUT OF RANGE REFERENCE UNITS LAB TSH 0.400-5.500 uU/mL TSH 1.430 Performed By: #### FREET3, FT4, TSH, TG #### [place] [id number] [place] [address] THYROGLOBULIN Collected: 01/05/2018 Status: F Source: [place] 10:32 AM [facility] REPOSITORY TYPE CODE TESTS RESULT OUT OF REFERENCE UNITS RANGE LAB THYG 1.6-59.9 ng/mL Thyroglobulin Low 0.9 Result Comment: Test analyzed by the Siemens Immulite method LAB TGABS <14.4 IU/mL TG High Antibody Screen 110.0 Performed By: #### FREET3, FT4, TSH, TG #### [facility] [address] [place], [place] [address] CNOV Observed: 01/05/2018 Status: COMPLETED Source: [place] 10:05 AM [facility] REPOSITORY Office Visit (ENDMED) ALTAGRACIAPABLO ([id number]) 1960 M Date Time Provider Department 01/05/18 10:05 AM SHAZIA ADAN During your visit today, we recorded the following information about you: Pulse Blood pressure Weight Height 93/minute 134/89 92.1 kg 1.77 m Shazia Adan MD 01/07/2018 11:44 AM Signed SUBJECTIVE: Pablo Blair Altagracia is a 58 year old male who presents today for Papillary thyroid cancer (T3N1a M0-stage III) and post surgical hypothyroidism follow up. History in brief, he was noted to have a palpable left thyroid nodule in fall 2014 Further evaluation with a Thyroid US revealed a left thyroid nodule measuring 2.5 x 1.8 x 2.4 cm containing calcifications and internal vascularity subcentimeter right thyroid nodules were also noted He underwent a FNA which revealed it to be Papillary thyroid cancer Date and type of original surgery-July 10, 2015-total thyroidectomy Performed by Hill Mcclellan Gross pathology: Tumor foci Left lobe-2.5 cm Right lobe-0.5 cm 2/2 lymph nodes were positive + margins +perineural and extrathyroidal extension TNM stage T3N1a Mx-stage III He underwent ZELAYA remnant ablation in November 15, 2015 Dose: 159 mci I131 Post treatment WBS scan several foci of activity in the Neck, no distant mets Cervical lymph node mapping RIGHT: I: No lymph nodes seen II: Morphologically normal lymph nodes node. ?No suspicious or enlarged nodes III: No lymph nodes seen IV: No lymph nodes seen V : No lymph nodes seen : No lymph nodes seen VII: No lymph nodes seen LEFT: I: No lymph nodes seen II: Morphologically normal lymph node. ?No suspicious or enlarged nodes. III/IV: 2.2 x 1.3 x 1.1 cm predominantly hypoechoic nodule with color flow and punctate microcalcification V : No lymph nodes seen . : 0.8 x 0.6 x 0.5 cm nodule with color flow in the midline thyroidectomy bed VII: 1.1 x 1.1 x 1.0 cm relatively avascular nodule LEFT of midline with central shadowing calcification In the past, his TSH have been persistently elevated despite various adjustments in synthroid, Tirosint and armour Due to this, his Tg levels was detectable. Since, he has been on [place], thyroid function markedly improved and Tg has been low Post surgical hypothyroidism: previously, he decreased his Synthroid dose to 150 mcg daily, although I prescribed 200 mcg daily Then he alternated synthroid and tirosint Patient states that he develops dyspnea due to Synthroid and tirosint He has been evaluated by Pulmonology- currently on Prednisone Quit smoking 4 years ago. I switched him to [place] in 2017 Current dose: [place] 240 mcg daily Current Symptoms: energy level has improved No changes in weight since last visit Constipation is better now No temperature intolerance No palpitations PAST MEDICAL HISTORY Diagnosis Date - COPD (chronic obstructive pulmonary disease) (HCC) - COPD with chronic bronchitis (HCC) 09/10/2017 - Papillary thyroid carcinoma (HCC) - Postoperative hypothyroidism PAST SURGICAL HISTORY Procedure Laterality Date - COLONOSCOP W/ OR W/O [facility] SPEC 11/09/2014 Colonoscopy - THYROIDECTOMY 07/10/2015 Papillary thyroid carcinoma. FAMILY HISTORY Problem Relation Age of Onset - Colon Cancer Maternal Grandmother - None Mother Alive in 80s - COPD Mother Social History Narrative None on file REVIEW OF SYSTEMS: General: no fever, chills or acute changes in weight Skin: no rashes, pruritus Eyes: no blurred or double vision or eye pain Cardiac: denies chest pain, heart palpitations or orthopnea Pulmonary: denies wheezing, productive cough or exertional dyspnea GI: denies nausea, vomiting, diarrhea, constipation Neuro: denies numbness/tingling in hands or feet Musc: no muscle weakness Endocrine: denies polyuria, polydipsia, nocturia Hematology: Negative for anemia, easy bleeding and bruising. Current Outpatient Prescriptions on File Prior to Visit: Current Outpatient Prescriptions: ARMOUR THYROID 240 mg tab Take 1 tablet by mouth six times a week. And half tablet on sundays Disp: 90 tablet Rfl: 3 budesonide (PULMICORT) 0.5 mg/2 mL nebulizer solution INHALE 2 ML BY NEBULIZER OVER 5-15 MINUTES EVERY 12 HOURS. Disp: 60 Vial Rfl: 11 ipratropium-albuterol (COMBIVENT RESPIMAT) 20-100 mcg/actuation mist Inhale 1 Puff as instructed four times daily as needed. Disp: 1 Cartridge Rfl: 11 albuterol (PROVENTIL) 2.5 mg /3 mL (0.083 %) nebulizer solution Use 3 mL via nebulizer every 6 hours as needed. OVER 5-15 MINUTES. FOR WHEEZING AND SHORTNESS OF BREATH. Disp: 100 Vial Rfl: 3 predniSONE (DELTASONE) 5 mg tablet Take 3 tablets by mouth once daily. Disp: Rfl: No current facility-administered medications for this visit. PHYSICAL EXAMINATION: BP 134/89 (BP Site: Left Arm, BP Position: Sitting, BP Cuff Size: Regular Adult) Pulse 93 Ht 177 cm (5' 9.69) Wt 92.1 kg (203 lb) SpO2 95% BMI 29.39 kg/m? General: alert AND oriented X 3, NAD Eyes:anicteric sclera, Extraocular motions intact Mucous membranes moist, no erythema Neck exam - supple, no significant adenopathy. Thyroid-No palpable thyroid tissue appreciated, well healed thyroidectomy scar, nontender to palpation CV - normal rate, regular rhythm, normal S1, S2 Resp - clear to auscultation bilaterally, no wheezing Abdomen - soft, nontender, non distended, normal Bowel sounds Musculoskeletal - no joint tenderness, deformity or swelling. Neuro - alert, oriented, normal speech, no focal findings, no tremor of outstretched hands, 2+ patellar reflexes Extremities without edema, Good peripheral pulses Skin: no rashes/erythema LABORATORY INVESTIGATION: Ref. Range 02/19/2016 11:13 05/21/2016 11:12 11/19/2016 11:18 11/28/2016 11:15 12/24/2016 11:09 01/16/2017 12:18 01/16/2017 12:20 02/13/2017 12:36 02/23/2017 11:21 05/29/2017 11:15 05/29/2017 11:26 09/24/2017 12:35 12/21/2017 11:53 01/05/2018 10:32 Thyroglobulin Latest Ref Range: 1.6 - 59.9 ng/mL 7.7 10.2 8.6 9.3 6.7 0.9 (L) 0.5 (L) 0.9 (L) TG Antibody Screen Latest Ref Range: <14.4 IU/mL 1.4 1.2 1.5 2.9 11.1 24.5 (H) 102.0 (H) 110.0 (H) Free T4 Latest Ref Range: 0.9 - 1.7 ng/dL 0.9 1.0 0.5 (L) 0.6 (L) 0.8 (L) 0.8 (L) 1.1 0.8 (L) TSH Latest Ref Range: 0.400 - 5.500 uU/mL 56.430 (H) 51.370 (H) 65.410 (H) 40.690 (H) 22.270 (H) 0.343 (L) 0.330 (L) 1.430 Free T3 Latest Ref Range: 2.3 - 4.1 pg/mL 3.0 3.6 4.0 6.8 (H) 4.6 (H) Neck US from May 2017: Status post total thyroidectomy with no mass lesion identified in the thyroid gland. There are multiple bilateral cervical lymph nodes. ?A right superior cervical lymph node measures 1.2 x 0.4 x 0.9 cm, previously 1.5 x 0.6 x 0.8 cm. ?A right inferior cervical lymph node measuring 9 x 5 x 7 mm, previously 9 x 5 x 8 mm. ?A left inferior cervical lymph node measuring 2 x 1 x 1.4 cm, previously 1.9 x 1 x 1.4 cm. ?Also noted a new lymph node in the inferior left neck measuring 7 x 5 x 8 mm. ?? ASSESSMENT AND PLAN: 1. Papillary Thyroid Cancer, T3N1a M0-stage III 2. Cervical lymphadenopathy S/p total thyroidectomy on July 10, 2015 Given that the tumor was multifocal, + lymph node involvement and extrathyroidal extension, he received ZELAYA remnant ablation ([id number]) He didn't tolerate Synthroid and Tirosint TSH level has decreased since switching to [place] and is within goal Reviewed and compared the neck US and recent cervical lymph node mapping The right cervical lymphadenopathy has resolved However, he has persistent left cervical lymphadenopathy Tg level has decreased but Tg Ab levels are now elevated, which is concerning for recurrence Then will refer to surgery () for FNA of left level IV and lymph nodes biopsy 3. Post-surgical Hypothyroidism TSH have been close to goal since May 2017 Discussed the importance of maintaining a low TSH given the risk of recurrence Continue current [place] dose Follow up to be determined based on labs and cytopathology Shazia Adan MD 01/05/18 Shazia Adan MD 01/05/2018 10:25 AM Addendum Get the blood test drawn Then will consider referring you to surgery for biopsy of the lymph node Follow up to be determined- based on labs Referring Provider: NO PCP [[id number]] Allergies As of Date: 01/05/2018 Noted Allergy Reaction TETRACYCLINE 10/17/2014 5 - Intolerance TETRACYCLINES 08/05/2015 2 - Rash Date Reviewed: 01/05/2018 Reviewed by: Luis Enrique Arce Ma - Fully Assessed Reason for Visit: Thyroid Problem [110] Primary Visit Diagnosis:Papillary thyroid carcinoma (HCC) [C73] Other Visit Diagnoses:Cervical lymphadenopathy [R59.0] Postoperative hypothyroidism [E89.0] Order(s):ARMOUR THYROID 240 mg tabTake 1 tablet by mouth six times a week. And half tablet on sundaysDisp: 90 tabletRfl: 3 Prescriptions as of 01/05/2018 Sig: ARMOUR THYROID 240 MG TABLET Take 1 tablet by mouth six ti* BUDESONIDE 0.5 MG/2 ML SUSPEN* INHALE 2 ML BY NEBULIZER OVER* IPRATROPIUM 20 MCG-ALBUTEROL * Inhale 1 Puff as instructed f* ALBUTEROL SULFATE 2.5 MG/3 ML* Use 3 mL via nebulizer every * PREDNISONE 5 MG TABLET Take 3 tablets by mouth once * Problem List As Of Date 01/05/2018 Noted Resolved Special screening for malignant neoplasms, colo*INVALID FOR*11/09/2014 SI (sacroiliac) joint dysfunction [M53.3] INVALID FOR* Midline low back pain with right-sided sciatica*INVALID FOR* DDD (degenerative disc disease), lumbar [M51.36]INVALID FOR* Papillary thyroid carcinoma (HCC) [C73] INVALID FOR* Postoperative hypothyroidism [E89.0] INVALID FOR* High serum thyroglobulin [R79.89] INVALID FOR* Cervical lymphadenopathy [R59.0] INVALID FOR* COPD with chronic bronchitis (HCC) [J44.9] INVALID FOR* Other instructions from your clinician: Get the blood test drawn Then will consider referring you to surgery for biopsy of the lymph node Follow up to be determined- based on labs Prescriptions ordered this encounter Disp Refills Start End ARMOUR THYROID 240 MG TABLET 90 t* 3 01/05/2018 Route: ORAL Sig: Take 1 tablet by mouth six times a week. And half tablet on sundays Medications Discontinued During This Encounter ARMOUR THYROID 240 mg tab 90 t* 3 10/05/2017 01/05/2018 Class: Med Update Route: ORAL Sig: Take 1 tablet by mouth six times a week. And half tablet on sundays Disc: Reason for discontinue is not on file. Encounter Status:Closed by SHAZIA ADAN DO on 01/07/18 PROGRESS Observed: 01/05/2018 Status: COMPLETED Source: [place] 10:02 AM [facility] REPOSITORY O ID: [id number] Author: Shazia Adan Service: (none) Author Type: Physician Type: Progress Notes Filed: 01/07/2018 11:44 AM Note Text: SUBJECTIVE: Pablo Sanchez is a 58 year old male who presents today for Papillary thyroid cancer (T3N1a M0-stage III) and post surgical hypothyroidism follow up. History in brief, he was noted to have a palpable left thyroid nodule in fall 2014 Further evaluation with a Thyroid US revealed a left thyroid nodule measuring 2.5 x 1.8 x 2.4 cm containing calcifications and internal vascularity subcentimeter right thyroid nodules were also noted He underwent a FNA which revealed it to be Papillary thyroid cancer Date and type of original surgery-July 10, 2015-total thyroidectomy Performed by [facility] Mcclellan Gross pathology: Tumor foci Left lobe-2.5 cm Right lobe-0.5 cm 2/2 lymph nodes were positive + margins +perineural and extrathyroidal extension TNM stage T3N1a Mx-stage III He underwent ZELAYA remnant ablation in November 15, 2015 Dose: 159 mci I131 Post treatment WBS scan several foci of activity in the Neck, no distant mets Cervical lymph node mapping RIGHT: I: No lymph nodes seen II: Morphologically normal lymph nodes node. ?No suspicious or enlarged nodes III: No lymph nodes seen IV: No lymph nodes seen V : No lymph nodes seen : No lymph nodes seen VII: No lymph nodes seen LEFT: I: No lymph nodes seen II: Morphologically normal lymph node. ?No suspicious or enlarged nodes. III/IV: 2.2 x 1.3 x 1.1 cm predominantly hypoechoic nodule with color flow and punctate microcalcification V : No lymph nodes seen . : 0.8 x 0.6 x 0.5 cm nodule with color flow in the midline thyroidectomy bed VII: 1.1 x 1.1 x 1.0 cm relatively avascular nodule LEFT of midline with central shadowing calcification In the past, his TSH have been persistently elevated despite various adjustments in synthroid, Tirosint and armour Due to this, his Tg levels was detectable. Since, he has been on [place], thyroid function markedly improved and Tg has been low Post surgical hypothyroidism: previously, he decreased his Synthroid dose to 150 mcg daily, although I prescribed 200 mcg daily Then he alternated synthroid and tirosint Patient states that he develops dyspnea due to Synthroid and tirosint He has been evaluated by Pulmonology- currently on Prednisone Quit smoking 4 years ago. I switched him to [place] in 2016 Current dose: [place] 240 mcg daily Current Symptoms: energy level has improved No changes in weight since last visit Constipation is better now No temperature intolerance No palpitations PAST MEDICAL HISTORY Diagnosis Date - COPD (chronic obstructive pulmonary disease) (HCC) - COPD with chronic bronchitis (HCC) 09/10/2017 - Papillary thyroid carcinoma (HCC) - Postoperative hypothyroidism PAST SURGICAL HISTORY Procedure Laterality Date - COLONOSCOP W/ OR W/O [facility] SPEC 11/09/2014 Colonoscopy - THYROIDECTOMY 07/10/2015 Papillary thyroid carcinoma. FAMILY HISTORY Problem Relation Age of Onset - Colon Cancer Maternal Grandmother - None Mother Alive in 80s - COPD Mother Social History Narrative None on file REVIEW OF SYSTEMS: General: no fever, chills or acute changes in weight Skin: no rashes, pruritus Eyes: no blurred or double vision or eye pain Cardiac: denies chest pain, heart palpitations or orthopnea Pulmonary: denies wheezing, productive cough or exertional dyspnea GI: denies nausea, vomiting, diarrhea, constipation Neuro: denies numbness/tingling in hands or feet Musc: no muscle weakness Endocrine: denies polyuria, polydipsia, nocturia Hematology: Negative for anemia, easy bleeding and bruising. Current Outpatient Prescriptions on File Prior to Visit: Current Outpatient Prescriptions: ARMOUR THYROID 240 mg tab Take 1 tablet by mouth six times a week. And half tablet on sundays Disp: 90 tablet Rfl: 3 budesonide (PULMICORT) 0.5 mg/2 mL nebulizer solution INHALE 2 ML BY NEBULIZER OVER 5-15 MINUTES EVERY 12 HOURS. Disp: 60 Vial Rfl: 11 ipratropium-albuterol (COMBIVENT RESPIMAT) 20-100 mcg/actuation mist Inhale 1 Puff as instructed four times daily as needed. Disp: 1 Cartridge Rfl: 11 albuterol (PROVENTIL) 2.5 mg /3 mL (0.083 %) nebulizer solution Use 3 mL via nebulizer every 6 hours as needed. OVER 5-15 MINUTES. FOR WHEEZING AND SHORTNESS OF BREATH. Disp: 100 Vial Rfl: 3 predniSONE (DELTASONE) 5 mg tablet Take 3 tablets by mouth once daily. Disp: Rfl: No current facility-administered medications for this visit. PHYSICAL EXAMINATION: BP 134/89 (BP Site: Left Arm, BP Position: Sitting, BP Cuff Size: Regular Adult) Pulse 93 Ht 177 cm (5' 9.69) Wt 92.1 kg (203 lb) SpO2 95% BMI 29.39 kg/m? General: alert AND oriented X 3, NAD Eyes:anicteric sclera, Extraocular motions intact Mucous membranes moist, no erythema Neck exam - supple, no significant adenopathy. Thyroid-No palpable thyroid tissue appreciated, well healed thyroidectomy scar, nontender to palpation CV - normal rate, regular rhythm, normal S1, S2 Resp - clear to auscultation bilaterally, no wheezing Abdomen - soft, nontender, non distended, normal Bowel sounds Musculoskeletal - no joint tenderness, deformity or swelling. Neuro - alert, oriented, normal speech, no focal findings, no tremor of outstretched hands, 2+ patellar reflexes Extremities without edema, Good peripheral pulses Skin: no rashes/erythema LABORATORY INVESTIGATION: Ref. Range 02/19/2016 11:13 05/21/2016 11:12 11/19/2016 11:18 11/28/2016 11:15 12/24/2016 11:09 01/16/2017 12:18 01/16/2017 12:20 02/13/2017 12:36 02/23/2017 11:21 05/29/2017 11:15 05/29/2017 11:26 09/24/2017 12:35 12/21/2017 11:53 01/05/2018 10:32 Thyroglobulin Latest Ref Range: 1.6 - 59.9 ng/mL 7.7 10.2 8.6 9.3 6.7 0.9 (L) 0.5 (L) 0.9 (L) TG Antibody Screen Latest Ref Range: <14.4 IU/mL 1.4 1.2 1.5 2.9 11.1 24.5 (H) 102.0 (H) 110.0 (H) Free T4 Latest Ref Range: 0.9 - 1.7 ng/dL 0.9 1.0 0.5 (L) 0.6 (L) 0.8 (L) 0.8 (L) 1.1 0.8 (L) TSH Latest Ref Range: 0.400 - 5.500 uU/mL 56.430 (H) 51.370 (H) 65.410 (H) 40.690 (H) 22.270 (H) 0.343 (L) 0.330 (L) 1.430 Free T3 Latest Ref Range: 2.3 - 4.1 pg/mL 3.0 3.6 4.0 6.8 (H) 4.6 (H) Neck US from May 2017: Status post total thyroidectomy with no mass lesion identified in the thyroid gland. There are multiple bilateral cervical lymph nodes. ?A right superior cervical lymph node measures 1.2 x 0.4 x 0.9 cm, previously 1.5 x 0.6 x 0.8 cm. ?A right inferior cervical lymph node measuring 9 x 5 x 7 mm, previously 9 x 5 x 8 mm. ?A left inferior cervical lymph node measuring 2 x 1 x 1.4 cm, previously 1.9 x 1 x 1.4 cm. ?Also noted a new lymph node in the inferior left neck measuring 7 x 5 x 8 mm. ?? ASSESSMENT AND PLAN: 1. Papillary Thyroid Cancer, T3N1a M0-stage III 2. Cervical lymphadenopathy S/p total thyroidectomy on July 10, 2015 Given that the tumor was multifocal, + lymph node involvement and extrathyroidal extension, he received ZELAYA remnant ablation ([id number]) He didn't tolerate Synthroid and Tirosint TSH level has decreased since switching to [place] and is within goal Reviewed and compared the neck US and recent cervical lymph node mapping The right cervical lymphadenopathy has resolved However, he has persistent left cervical lymphadenopathy Tg level has decreased but Tg Ab levels are now elevated, which is concerning for recurrence Then will refer to surgery () for FNA of left level IV and lymph nodes biopsy 3. Post-surgical Hypothyroidism TSH have been close to goal since May 2017 Discussed the importance of maintaining a low TSH given the risk of recurrence Continue current [place] dose Follow up to be determined based on labs and cytopathology Shazia Adan MD 01/05/18 US CERVICAL LYMPH Observed: 12/21/2017 Status: F Source: [place] 11:53 AM [facility] REPOSITORY * * *Final Report* * * DATE OF EXAM: Dec 21 2017 11:53AM [id number] - US CERVICAL LYMPH NODE MAPPING / PROCEDURE REASON: Malignant neoplasm of thyroid gland * * * * Physician Interpretation * * * * EXAM: ULTRASOUND CERVICAL LYMPH NODE MAPPING 12/21/2017 CLINICAL HISTORY: Status post thyroidectomy for malignancy. Evaluate for cervical lymphadenopathy COMPARISON: None TECHNIQUE: Lee scale imaging of the neck for assessment of cervical lymphadenopathy RESULT: Survey of bilateral neck lymph nodes completed. No neck fluid collections. RIGHT: I: No lymph nodes seen II: Morphologically normal lymph nodes node. No suspicious or enlarged nodes III: No lymph nodes seen IV: No lymph nodes seen V : No lymph nodes seen : No lymph nodes seen VII: No lymph nodes seen LEFT: I: No lymph nodes seen II: Morphologically normal lymph node. No suspicious or enlarged nodes. III/IV: 2.2 x 1.3 x 1.1 cm predominantly hypoechoic nodule with color flow and punctate microcalcification V : No lymph nodes seen . : 0.8 x 0.6 x 0.5 cm nodule with color flow in the midline thyroidectomy bed VII: 1.1 x 1.1 x 1.0 cm relatively avascular nodule LEFT of midline with central shadowing calcification IMPRESSION: STATUS POST THYROIDECTOMY WITH MULTIPLE MIDLINE/LEFT PARAMEDIAN NODULES WITH CALCIFICATION WHICH ARE SUSPICIOUS FOR RECURRENCE. AT CLINICAL DISCRETION CONSIDER FURTHER EVALUATION WITH NUCLEAR MEDICINE SPECT-CT IMAGING. Typewriter Aligner: ALEJANDRO Transcribe Date/Time: Dec 21 2017 11:58A Dictated by : KIERAN MATHIS MD This examination was interpreted and the report reviewed and electronically signed by: KIERAN MATHIS MD on Dec 21 2017 12:12PM EST [id number] PROGRESS Observed: 10/05/2017 Status: COMPLETED Source: [place] 10:22 AM [facility] REPOSITORY HNO ID: [id number] Author: Shazia Adan Service: (none) Author Type: Physician Type: Progress Notes Filed: 10/05/2017 1:26 PM Note Text: SUBJECTIVE: Pablo Sanchez is a 57 year old male who presents today for Papillary thyroid cancer (T3N1a M0-stage III) and post surgical hypothyroidism follow up. History in brief, he was noted to have a palpable left thyroid nodule in fall 2014 Further evaluation with a Thyroid US revealed a left thyroid nodule measuring 2.5 x 1.8 x 2.4 cm containing calcifications and internal vascularity subcentimeter right thyroid nodules were also noted He underwent a FNA which revealed it to be Papillary thyroid cancer Date and type of original surgery-July 10, 2015-total thyroidectomy Performed by [facility] Mcclellan Gross pathology: Tumor foci Left lobe-2.5 cm Right lobe-0.5 cm 2/2 lymph nodes were positive + margins +perineural and extrathyroidal extension TNM stage T3N1a Mx-stage III He underwent ZEALYA remnant ablation in November 15, 2015 Dose: 159 mci I131 Post treatment WBS scan several foci of activity in the Neck, no distant mets His TSH have been persistently despite various adjustments in synthroid, Tirosint and armour Due to this, his Tg levels have been detectable. Post surgical hypothyroidism: previously, he decreased his Synthroid dose to 150 mcg daily, although I prescribed 200 mcg daily Then he alternated synthroid and tirosint Patient states that he develops dyspnea due to Synthroid and tirosint He has been evaluated by Pulmonology- currently on Prednisone Quit smoking 4 years ago. I switched him to [place] in 2017 Current dose: [place] 240 mcg daily Current Symptoms: energy level has improved Weight loss of 12 lbs since last visit Constipation is better now No temperature intolerance No palpitations PAST MEDICAL HISTORY Diagnosis Date - COPD (chronic obstructive pulmonary disease) (HCC) - COPD with chronic bronchitis (HCC) 09/10/2017 - Papillary thyroid carcinoma (HCC) - Postoperative hypothyroidism PAST SURGICAL HISTORY Procedure Laterality Date - COLONOSCOP W/ OR W/O [facility] SPEC 11/09/2014 Colonoscopy - THYROIDECTOMY 07/10/2015 Papillary thyroid carcinoma. FAMILY HISTORY Problem Relation Age of Onset - Colon Cancer Maternal Grandmother - None Mother Alive in 80s - COPD Mother Social History Narrative None on file REVIEW OF SYSTEMS: GENERAL: Fever - No Changes in weight - weight loss NEUROLOGICAL: Numbness, tingling or sensation of pins and needles - No Headaches-No HEAD, EYES, EARS, NOSE, AND THROAT: Changes in hearing - No Changes in vision - No CARDIOVASCULAR: Chest pain or pressure - No Palpitations - No RESPIRATORY: Cough - No Wheezing - No Shortness of breath - No GASTROINTESTINAL: Abdominal discomfort - No Nausea - No Vomiting - No EXTREMITY: Edema - No Claudication-No MUSCULOSKELETAL: Muscle pain or ache - No Arthralgia-No Skin: Rash - No Erythema-No ENDOCRINE: Diabetes - No Thyroid cancer-Yes PSYCHOLOGICAL: Depression - No Anxiety-No Current Outpatient Prescriptions on File Prior to Visit: ipratropium-albuterol (COMBIVENT RESPIMAT) 20-100 mcg/actuation mist Inhale 1 Puff as instructed four times daily as needed. levothyroxine (SYNTHROID) 125 mcg tablet Take 125 mcg by mouth daily before breakfast. albuterol HFA (PROVENTIL HFA, VENTOLIN HFA) 90 mcg/actuation inhaler Inhale 2 Puffs as instructed every 6 hours as needed for Wheezing/Shortness of Breath. No current facility-administered medications on file prior to visit. PHYSICAL EXAMINATION: BP 125/80 (BP Site: Left Arm, BP Position: Sitting, BP Cuff Size: Regular Adult) Pulse 94 Ht 177.5 cm (5' 9.88) Wt 90.7 kg (200 lb) SpO2 94% BMI 28.79 kg/m? General: alert AND oriented X 3, NAD Eyes:anicteric sclera, Extraocular motions intact Mucous membranes moist, no erythema Neck exam - supple, no significant adenopathy. Thyroid-No palpable thyroid tissue appreciated, well healed thyroidectomy scar, nontender to palpation CV - normal rate, regular rhythm, normal S1, S2 Resp - clear to auscultation bilaterally, no wheezing Abdomen - soft, nontender, non distended, normal Bowel sounds Musculoskeletal - no joint tenderness, deformity or swelling. Neuro - alert, oriented, normal speech, no focal findings, no tremor of outstretched hands, 2+ patellar reflexes Extremities without edema, Good peripheral pulses Skin: no rashes/erythema LABORATORY INVESTIGATION: Ref. Range 11/19/2016 11:18 12/24/2016 11:09 02/23/2017 11:21 05/29/2017 11:15 09/24/2017 12:35 Free T4 Latest Ref Range: 0.9 - 1.7 ng/dL 0.5 (L) 0.6 (L) 0.8 (L) 0.8 (L) 1.1 TSH Latest Ref Range: 0.400 - 5.500 uU/mL 65.410 (H) 40.690 (H) 22.270 (H) 0.343 (L) 0.330 (L) Free T3 Latest Ref Range: 2.3 - 4.1 pg/mL 3.0 3.6 4.0 6.8 (H) Thyroglobulin Latest Ref Range: 1.6 - 59.9 ng/mL 8.6 9.3 6.7 0.9 (L) 0.5 (L) Neck US from May 2017: Status post total thyroidectomy with no mass lesion identified in the thyroid gland. There are multiple bilateral cervical lymph nodes. ?A right superior cervical lymph node measures 1.2 x 0.4 x 0.9 cm, previously 1.5 x 0.6 x 0.8 cm. ?A right inferior cervical lymph node measuring 9 x 5 x 7 mm, previously 9 x 5 x 8 mm. ?A left inferior cervical lymph node measuring 2 x 1 x 1.4 cm, previously 1.9 x 1 x 1.4 cm. ?Also noted a new lymph node in the inferior left neck measuring 7 x 5 x 8 mm. ?? ASSESSMENT AND PLAN: 1. Papillary Thyroid Cancer, T3N1a M0-stage III 2. Cervical lymphadenopathy S/p total thyroidectomy on July 10, 2015 Given that the tumor was multifocal, + lymph node involvement and extrathyroidal extension, he received ZELAYA remnant ablation ([id number] mCi) TSH goal < 0.1 He didn't tolerate Synthroid and Tirosint TSH level has finally decreased and is within goal Tg level has decreased but Tg Ab levels are now elevated Obtain cervical lymph node mapping for further evaluation 3. Post-surgical Hypothyroidism bio-chemically hyperthyroid Discussed the importance of maintaining a low TSH given the risk of recurrence Continue current [place] dose, decrease to half tablet on sundays Recheck thyroid function test at follow up Follow up in 3 months, labs and imaging prior to appt Shazia Adan MD 10/05/17 CNOV Observed: 10/05/2017 Status: COMPLETED Source: [place] 10:05 AM [facility] REPOSITORY Office Visit (ENDMED) ALTAGRACIAPABLO GREENFIELD ([id number]) 1960 M Date Time Provider Department 10/05/17 10:05 AM SHAZIA ADAN During your visit today, we recorded the following information about you: Pulse Blood pressure Weight Height 94/minute 125/80 90.7 kg 1.775 m Shazia Adan MD 10/05/2017 1:26 PM Signed SUBJECTIVE: Pablo Blair Altagracia is a 57 year old male who presents today for Papillary thyroid cancer (T3N1a M0-stage III) and post surgical hypothyroidism follow up. History in brief, he was noted to have a palpable left thyroid nodule in fall 2014 Further evaluation with a Thyroid US revealed a left thyroid nodule measuring 2.5 x 1.8 x 2.4 cm containing calcifications and internal vascularity subcentimeter right thyroid nodules were also noted He underwent a FNA which revealed it to be Papillary thyroid cancer Date and type of original surgery-July 10, 2015-total thyroidectomy Performed by Hill Mcclellan Gross pathology: Tumor foci Left lobe-2.5 cm Right lobe-0.5 cm 2/2 lymph nodes were positive + margins +perineural and extrathyroidal extension TNM stage T3N1a Mx-stage III He underwent ZELAYA remnant ablation in November 15, 2015 Dose: 159 mci I131 Post treatment WBS scan several foci of activity in the Neck, no distant mets His TSH have been persistently despite various adjustments in synthroid, Tirosint and armour Due to this, his Tg levels have been detectable. Post surgical hypothyroidism: previously, he decreased his Synthroid dose to 150 mcg daily, although I prescribed 200 mcg daily Then he alternated synthroid and tirosint Patient states that he develops dyspnea due to Synthroid and tirosint He has been evaluated by Pulmonology- currently on Prednisone Quit smoking 4 years ago. I switched him to [place]te in 2017 Current dose: [place] 240 mcg daily Current Symptoms: energy level has improved Weight loss of 12 lbs since last visit Constipation is better now No temperature intolerance No palpitations PAST MEDICAL HISTORY Diagnosis Date - COPD (chronic obstructive pulmonary disease) (HCC) - COPD with chronic bronchitis (HCC) 09/10/2017 - Papillary thyroid carcinoma (HCC) - Postoperative hypothyroidism PAST SURGICAL HISTORY Procedure Laterality Date - COLONOSCOP W/ OR W/O BRSH SPEC 11/09/2014 Colonoscopy - THYROIDECTOMY 07/10/2015 Papillary thyroid carcinoma. FAMILY HISTORY Problem Relation Age of Onset - Colon Cancer Maternal Grandmother - None Mother Alive in 80s - COPD Mother Social History Narrative None on file REVIEW OF SYSTEMS: GENERAL: Fever - No Changes in weight - weight loss NEUROLOGICAL: Numbness, tingling or sensation of pins and needles - No Headaches-No HEAD, EYES, EARS, NOSE, AND THROAT: Changes in hearing - No Changes in vision - No CARDIOVASCULAR: Chest pain or pressure - No Palpitations - No RESPIRATORY: Cough - No Wheezing - No Shortness of breath - No GASTROINTESTINAL: Abdominal discomfort - No Nausea - No Vomiting - No EXTREMITY: Edema - No Claudication-No MUSCULOSKELETAL: Muscle pain or ache - No Arthralgia-No Skin: Rash - No Erythema-No ENDOCRINE: Diabetes - No Thyroid cancer-Yes PSYCHOLOGICAL: Depression - No Anxiety-No Current Outpatient Prescriptions on File Prior to Visit: ipratropium-albuterol (COMBIVENT RESPIMAT) 20-100 mcg/actuation mist Inhale 1 Puff as instructed four times daily as needed. levothyroxine (SYNTHROID) 125 mcg tablet Take 125 mcg by mouth daily before breakfast. albuterol HFA (PROVENTIL HFA, VENTOLIN HFA) 90 mcg/actuation inhaler Inhale 2 Puffs as instructed every 6 hours as needed for Wheezing/Shortness of Breath. No current facility-administered medications on file prior to visit. PHYSICAL EXAMINATION: BP 125/80 (BP Site: Left Arm, BP Position: Sitting, BP Cuff Size: Regular Adult) Pulse 94 Ht 177.5 cm (5' 9.88) Wt 90.7 kg (200 lb) SpO2 94% BMI 28.79 kg/m? General: alert AND oriented X 3, NAD Eyes:anicteric sclera, Extraocular motions intact Mucous membranes moist, no erythema Neck exam - supple, no significant adenopathy. Thyroid-No palpable thyroid tissue appreciated, well healed thyroidectomy scar, nontender to palpation CV - normal rate, regular rhythm, normal S1, S2 Resp - clear to auscultation bilaterally, no wheezing Abdomen - soft, nontender, non distended, normal Bowel sounds Musculoskeletal - no joint tenderness, deformity or swelling. Neuro - alert, oriented, normal speech, no focal findings, no tremor of outstretched hands, 2+ patellar reflexes Extremities without edema, Good peripheral pulses Skin: no rashes/erythema LABORATORY INVESTIGATION: Ref. Range 11/19/2016 11:18 12/24/2016 11:09 02/23/2017 11:21 05/29/2017 11:15 09/24/2017 12:35 Free T4 Latest Ref Range: 0.9 - 1.7 ng/dL 0.5 (L) 0.6 (L) 0.8 (L) 0.8 (L) 1.1 TSH Latest Ref Range: 0.400 - 5.500 uU/mL 65.410 (H) 40.690 (H) 22.270 (H) 0.343 (L) 0.330 (L) Free T3 Latest Ref Range: 2.3 - 4.1 pg/mL 3.0 3.6 4.0 6.8 (H) Thyroglobulin Latest Ref Range: 1.6 - 59.9 ng/mL 8.6 9.3 6.7 0.9 (L) 0.5 (L) Neck US from May 2017: Status post total thyroidectomy with no mass lesion identified in the thyroid gland. There are multiple bilateral cervical lymph nodes. ?A right superior cervical lymph node measures 1.2 x 0.4 x 0.9 cm, previously 1.5 x 0.6 x 0.8 cm. ?A right inferior cervical lymph node measuring 9 x 5 x 7 mm, previously 9 x 5 x 8 mm. ?A left inferior cervical lymph node measuring 2 x 1 x 1.4 cm, previously 1.9 x 1 x 1.4 cm. ?Also noted a new lymph node in the inferior left neck measuring 7 x 5 x 8 mm. ?? ASSESSMENT AND PLAN: 1. Papillary Thyroid Cancer, T3N1a M0-stage III 2. Cervical lymphadenopathy S/p total thyroidectomy on July 10, 2015 Given that the tumor was multifocal, + lymph node involvement and extrathyroidal extension, he received ZELAYA remnant ablation ([id number] mCi) TSH goal < 0.1 He didn't tolerate Synthroid and Tirosint TSH level has finally decreased and is within goal Tg level has decreased but Tg Ab levels are now elevated Obtain cervical lymph node mapping for further evaluation 3. Post-surgical Hypothyroidism bio-chemically hyperthyroid Discussed the importance of maintaining a low TSH given the risk of recurrence Continue current [place] dose, decrease to half tablet on sundays Recheck thyroid function test at follow up Follow up in 3 months, labs and imaging prior to appt Shazia Adan MD 10/05/17 Shazia Adan MD 10/05/2017 10:37 AM Addendum Take only half armour pill on sundays Repeat blood test in 3 months Schedule the lymph node ultrasound at [facility] Call to schedule the appt- This should be done 1 prior to your next appt with me Follow up in 3 months Referring Provider: NO PCP [[id number]] Allergies As of Date: 10/05/2017 Noted Allergy Reaction TETRACYCLINE 10/17/2014 5 - Intolerance TETRACYCLINES 08/05/2015 2 - Rash Date Reviewed: 10/05/2017 Reviewed by: Shazia Adan - Fully Assessed Reason for Visit: Thyroid Problem [110] Primary Visit Diagnosis:Papillary thyroid carcinoma (HCC) [C73] Other Visit Diagnoses:Cervical lymphadenopathy [R59.0] Postoperative hypothyroidism [E89.0] Order(s):ARMOUR THYROID 240 mg tabTake 1 tablet by mouth six times a week. And half tablet on sundaysDisp: 90 tabletRfl: 3 TSH BLD [SQTSH] Order #: [id number] FUTURE T4 FREE/FREE THYROX [SQFT4] Order #: [id number] FUTURE T3 FREE BLD [SQFREET3] Order #: [id number] FUTURE THYROGLOBULIN BLD [SQTG] Order #: [id number] FUTURE CERVICAL LYMPH NODE MAPPING [4390669] Order #: [id number] FUTURE Prescriptions as of 10/05/2017 Sig: ARMOUR THYROID 240 MG TABLET Take 1 tablet by mouth six ti* ALBUTEROL SULFATE 2.5 MG/3 ML* Use 3 mL via nebulizer every * BUDESONIDE 0.5 MG/2 ML SUSPEN* INHALE 2 ML BY NEBULIZER OVER* PREDNISONE 5 MG TABLET Take 3 tablets by mouth once * IPRATROPIUM 20 MCG-ALBUTEROL * Inhale 1 Puff as instructed f* Problem List As Of Date 10/05/2017 Noted Resolved Special screening for malignant neoplasms, colo*INVALID FOR*11/09/2014 SI (sacroiliac) joint dysfunction [M53.3] INVALID FOR* Midline low back pain with right-sided sciatica*INVALID FOR* DDD (degenerative disc disease), lumbar [M51.36]INVALID FOR* Papillary thyroid carcinoma (HCC) [C73] INVALID FOR* Postoperative hypothyroidism [E89.0] INVALID FOR* High serum thyroglobulin [R79.89] INVALID FOR* Cervical lymphadenopathy [R59.0] INVALID FOR* COPD with chronic bronchitis (HCC) [J44.9] INVALID FOR* Other instructions from your clinician: Take only half armour pill on sundays Repeat blood test in 3 months Schedule the lymph node ultrasound at [facility] Call to schedule the appt- This should be done 1 prior to your next appt with me Follow up in 3 months Prescriptions ordered this encounter Disp Refills Start End ARMOUR THYROID 240 MG TABLET 90 t* 3 10/05/2017 Class: Med Update Route: ORAL Sig: Take 1 tablet by mouth six times a week. And half tablet on sundays Medications Discontinued During This Encounter ARMOUR THYROID 240 mg tab 90 t* 3 02/26/2017 10/05/2017 Route: ORAL Sig: Take 240 mg by mouth once daily. Disc: Reason for discontinue is not on file. Disposition: Return in about 3 months (around 01/05/2018). Follow-up and Disposition History Recorded Encounter Status:Closed by SHAZIA ADAN DO on 10/05/17 FREE T3 Collected: 09/24/2017 Status: F Source: [place] 12:35 PM [facility] REPOSITORY TYPE CODE TESTS RESULT OUT OF RANGE REFERENCE UNITS LAB FREET3 2.3-4.1 pg/mL High Free T3 6.8 Performed By: #### FREET3, FT4, TSH, TG #### [place] [id number] [place] [id number] FREE T4 Collected: 09/24/2017 Status: F Source: [place] 12:35 PM [facility] REPOSITORY TYPE CODE TESTS RESULT OUT OF RANGE REFERENCE UNITS LAB FT4 0.9-1.7 ng/dL Free T4 1.1 Performed By: #### FREET3, FT4, TSH, TG #### [place] [address] TSH Collected: 09/24/2017 Status: F Source: [place] 12:35 PM [facility] REPOSITORY TYPE CODE TESTS RESULT OUT OF RANGE REFERENCE UNITS LAB TSH 0.400-5.500 uU/mL Low TSH 0.330 Performed By: #### FREET3, FT4, TSH, TG #### [place] [address] THYROGLOBULIN Collected: 09/24/2017 Status: F Source: [place] 12:35 [facility] REPOSITORY TYPE CODE TESTS RESULT OUT OF REFERENCE UNITS RANGE LAB THYG 1.6-59.9 ng/mL Thyroglobulin Low 0.5 Result Comment: Test analyzed by the Siemens Immulite method LAB TGABS <14.4 IU/mL TG High Antibody Screen 102.0 Performed By: #### FREET3, FT4, TSH, TG #### [place] [id number] CNOV Observed: 09/10/2017 Status: COMPLETED Source: [place] 8:30 AM [facility] REPOSITORY Office Visit (PULMWS) PABLO SANCHEZ ([id number]) 1960 M Date Time Provider Department 09/10/17 8:30 AM DINH LEZAMA During your visit today, we recorded the following information about you: Pulse Respiration Blood pressure Weight 89/minute 16/minute 129/82 93.4 kg Height 1.778 m Dinh Lezama 09/10/2017 8:48 AM Signed [facility] [place], 09/10/2017: ? INTERVAL HISTORY: The patient is here for follow up of COPD. Since the last visit 06/08/17, the patient has not been in ED for exacerbation, But I've been taking 15 mg prednisone daily from my Primary Care Physician, because every time I come off of it I can't breathe. Notes Budesonide nebulized seems to work much better than Symbicort, and is currently covered by insurance plan. . Less frequent and less severe cough with clear sputum. No hemoptysis. No pleuritic chest pain. Has not had nocturnal wheezing. I don't really wheeze that much. Dyspnea with exertion, labored breathing limits exertional tolerance ? PMH changes: Reviewed with patient today. FAMH changes: Reviewed with patient today. SOCH changes: No changes. ? ROS: ENT: Rhinorrhea and post nasal drip, Worse with Flonase. GI: Occasional heartburn. TO Otherwise negative. ? Immunization History Administered Date(s) Administered Influenza Seasonal Inj Quadrivalent Age 3+ 01/16/2017 Allergies were reviewed and updated, and medications were reconciled with the patient. ? PHYSICAL EXAMINATION: BP 129/82 Pulse 89 Resp 16 Ht 5' 10 (1.78m) Wt 206 lb (93.4kg) SpO2 96% BMI 29.56 kg/(m2). Gen: No acute distress. Cooperative with examination. ENT: Sclerae clear. EOMI. Nares clear. Pharynx clear. No halitosis. No sign of oral thrush. Resp: No stridor, accessory respiratory muscle use, supra- sternal or intercostal retractions. No wheezes, crackles, rubs. CV: Regular rythm. Heart tones normal. Radial pulses normal. Abd: Non distended. MSK: No kyphoscoliosis, joint deformities. Ext: Warm and well perfused. No clubbing, cyanosis, edema. Skin: Superficial skin tear dorsum of left forearm. Color normal. No rash, eczema, urticaria, ecchymoses. Neuro: Mental status normal. Affect normal. Muscle tone normal. No tremor. ? DATA REVIEW: DATE: 09/10/2017 02/13/17 11/24/16 FVC 6.71, 138% 5.18L, 107% 6.48L, 133% FEV1 2.59L, 70% 1.73L, 47% 2.76L, 74% FEV1/FVC 0.39 0.33 0.43 ? CXR, 01/16/17 IMPRESSION: Chronic changes without apparent focal infiltrate or airspace consolidation. ?No evidence of pulmonary edema. ? IMPRESSION/RECOMMEND: 1. Moderate COPD with chronic bronchitis. - Continue budesonide (inhaled steroid) in nebulizer with albuterol two times per day. - Albuterol via nebulizer or Combivent Respimat (1 inhalation) up to 4 times per day as needed for shortness of breath/wheezing. - Remember Annual Influenza vaccination ideally recommended between February 15 and March 18 every year. - Prednisone as directed by Dr. Smith, but reminded that lowest possible dose is favorable as maintenance oral Prednisone is not generally recommended in stable COPD, because of penitentiary side effects, which include: -Increased appetite and weight gain -Changes in mood and thinking -Sleep disruption -Thin skin -Cataracts -High blood pressure -Osteoporosis and fractures -Disruption of blood sugar balance, diabetes. -Increased risk of infections ? I addressed the questions of the patient, and he expressed understanding and acceptance of my answers. Dinh Lezama MD, [facility] [place] [facility] [address] [place] [address] P: [phone] F: [phone] Dinh Lezama 09/10/2017 8:43 AM Addendum DATA REVIEW: DATE: 09/10/2017 02/13/17 11/24/16 FVC 6.71, 138% 5.18L, 107% 6.48L, 133% FEV1 2.59L, 70% 1.73L, 47% 2.76L, 74% FEV1/FVC 0.39 0.33 0.43 IMPRESSION/RECOMMEND: 1. Moderate COPD with chronic bronchitis. - Continue budesonide (inhaled steroid) in nebulizer with albuterol two times per day. - Albuterol via nebulizer or Combivent Respimat (1 inhalation) up to 4 times per day as needed for shortness of breath/wheezing. - Remember Annual Influenza vaccination ideally recommended between February 15 and March 18 every year. - Prednisone as directed by Dr. Smith, but reminded that lowest possible dose is favorable as maintenance oral Prednisone is not generally recommended in stable COPD, because of intermediate project manager side effects, which include: -Increased appetite and weight gain -Changes in mood and thinking -Sleep disruption -Thin skin -Cataracts -High blood pressure -Osteoporosis and fractures -Disruption of blood sugar balance, diabetes. -Increased risk of infections ? Dinh Lezama MD, [facility] [place] [facility] [address] [place] [id number] P: [phone] F: [phone] [email or web address] Referring Provider: TOYA NEGRETE [[id number]] Allergies As of Date: 09/10/2017 Noted Allergy Reaction TETRACYCLINE 10/17/2014 5 - Intolerance TETRACYCLINES 08/05/2015 2 - Rash Date Reviewed: 09/10/2017 Reviewed by: Dinh Lezama - Fully Assessed Reason for Visit: Established Patient [175] Primary Visit Diagnosis:COPD with chronic bronchitis (HCC) [J44.9] Order(s):predniSONE (DELTASONE) 5 mg tabletTake 3 tablets by mouth once daily.Disp: Rfl: Prescriptions as of 09/10/2017 Sig: ALBUTEROL SULFATE 2.5 MG/3 ML* Use 3 mL via nebulizer every * IPRATROPIUM 20 MCG-ALBUTEROL * Inhale 1 Puff as instructed f* BUDESONIDE 0.5 MG/2 ML SUSPEN* INHALE 2 ML BY NEBULIZER OVER* ARMOUR THYROID 240 MG TABLET Take 240 mg by mouth once sergio* PREDNISONE 5 MG TABLET Take 3 tablets by mouth once * Problem List As Of Date 09/10/2017 Noted Resolved Special screening for malignant neoplasms, colo*INVALID FOR*11/09/2014 SI (sacroiliac) joint dysfunction [M53.3] INVALID FOR* Midline low back pain with right-sided sciatica*INVALID FOR* DDD (degenerative disc disease), lumbar [M51.36]INVALID FOR* Papillary thyroid carcinoma (HCC) [C73] INVALID FOR* Postoperative hypothyroidism [E89.0] INVALID FOR* High serum thyroglobulin [R79.89] INVALID FOR* Cervical lymphadenopathy [R59.0] INVALID FOR* COPD with chronic bronchitis (HCC) [J44.9] INVALID FOR* Notes for Staff Discussed this visit Other instructions from your clinician: DATA REVIEW: DATE: 09/10/2017 02/13/17 11/24/16 FVC 6.71, 138% 5.18L, 107% 6.48L, 133% FEV1 2.59L, 70% 1.73L, 47% 2.76L, 74% FEV1/FVC 0.39 0.33 0.43 IMPRESSION/RECOMMEND: 1. Moderate COPD with chronic bronchitis. - Continue budesonide (inhaled steroid) in nebulizer with albuterol two times per day. - Albuterol via nebulizer or Combivent Respimat (1 inhalation) up to 4 times per day as needed for shortness of breath/wheezing. - Remember Annual Influenza vaccination ideally recommended between February 15 and March 18 every year. - Prednisone as directed by Dr. Smith, but reminded that lowest possible dose is favorable as maintenance oral Prednisone is not generally recommended in stable COPD, because of penitentiary side effects, which include: -Increased appetite and weight gain -Changes in mood and thinking -Sleep disruption -Thin skin -Cataracts -High blood pressure -Osteoporosis and fractures -Disruption of blood sugar balance, diabetes. -Increased risk of infections ? Dinh Lezama MD, [facility] [place] [facility] [address] [place], [place] [id number] P: [phone] F: [phone] [email or web address] Prescriptions ordered this encounter Disp Refills Start End PREDNISONE 5 MG TABLET 09/10/2017 Class: Med Update Route: ORAL Sig: Take 3 tablets by mouth once daily. Medications Discontinued During This Encounter predniSONE (DELTASONE) 10 mg tablet 0 03/30/2017 09/10/2017 Class: Med Update Route: ORAL Sig: Take 1.5 tablets by mouth once daily. Disc: Course of therapy completed Follow Up: Discussed this visit Disposition: Return in about 6 months (around 03/13/2018). Follow-up and Disposition History Recorded Encounter Status:Closed by DINH LEZAMA MD on 09/10/17 PROGRESS Observed: 09/10/2017 Status: COMPLETED Source: [place] 7:58 AM [facility] REPOSITORY HNO ID: [id number] Author: Dinh Lezama Service: (none) Author Type: Physician Type: Progress Notes Filed: 09/10/2017 8:48 AM Note Text: [facility] [place], 09/10/2017: ? INTERVAL HISTORY: The patient is here for follow up of COPD. Since the last visit 06/08/17, the patient has not been in ED for exacerbation, But I've been taking 15 mg prednisone daily from my Primary Care Physician, because every time I come off of it I can't breathe. Notes Budesonide nebulized seems to work much better than Symbicort, and is currently covered by insurance plan. . Less frequent and less severe cough with clear sputum. No hemoptysis. No pleuritic chest pain. Has not had nocturnal wheezing. I don't really wheeze that much. Dyspnea with exertion, labored breathing limits exertional tolerance ? PMH changes: Reviewed with patient today. FAMH changes: Reviewed with patient today. SOCH changes: No changes. ? ROS: ENT: Rhinorrhea and post nasal drip, Worse with Flonase. GI: Occasional heartburn. TO Otherwise negative. ? Immunization History Administered Date(s) Administered Influenza Seasonal Inj Quadrivalent Age 3+ 01/16/2017 Allergies were reviewed and updated, and medications were reconciled with the patient. ? PHYSICAL EXAMINATION: BP 129/82 Pulse 89 Resp 16 Ht 5' 10 (1.78m) Wt 206 lb (93.4kg) SpO2 96% BMI 29.56 kg/(m2). Gen: No acute distress. Cooperative with examination. ENT: Sclerae clear. EOMI. Nares clear. Pharynx clear. No halitosis. No sign of oral thrush. Resp: No stridor, accessory respiratory muscle use, supra- sternal or intercostal retractions. No wheezes, crackles, rubs. CV: Regular rythm. Heart tones normal. Radial pulses normal. Abd: Non distended. MSK: No kyphoscoliosis, joint deformities. Ext: Warm and well perfused. No clubbing, cyanosis, edema. Skin: Superficial skin tear dorsum of left forearm. Color normal. No rash, eczema, urticaria, ecchymoses. Neuro: Mental status normal. Affect normal. Muscle tone normal. No tremor. ? DATA REVIEW: DATE: 09/10/2017 02/13/17 11/24/16 FVC 6.71, 138% 5.18L, 107% 6.48L, 133% FEV1 2.59L, 70% 1.73L, 47% 2.76L, 74% FEV1/FVC 0.39 0.33 0.43 ? CXR, 01/16/17 IMPRESSION: Chronic changes without apparent focal infiltrate or airspace consolidation. ?No evidence of pulmonary edema. ? IMPRESSION/RECOMMEND: 1. Moderate COPD with chronic bronchitis. - Continue budesonide (inhaled steroid) in nebulizer with albuterol two times per day. - Albuterol via nebulizer or Combivent Respimat (1 inhalation) up to 4 times per day as needed for shortness of breath/wheezing. - Remember Annual Influenza vaccination ideally recommended between February 15 and March 18 every year. - Prednisone as directed by Dr. Smith, but reminded that lowest possible dose is favorable as maintenance oral Prednisone is not generally recommended in stable COPD, because of penitentiary side effects, which include: -Increased appetite and weight gain -Changes in mood and thinking -Sleep disruption -Thin skin -Cataracts -High blood pressure -Osteoporosis and fractures -Disruption of blood sugar balance, diabetes. -Increased risk of infections ? I addressed the questions of the patient, and he expressed understanding and acceptance of my answers. Dinh Lezama MD, [facility] [place] [facility] [address] [place] [address] P: [phone] F: [phone] [email or web address] CNCO Observed: 09/10/2017 Status: COMPLETED Source: [place] 12:00 AM [facility] REPOSITORY Letter Text Pablo Sanchez September 10, 2017 Lauro Smith MD [address] [place] [id number] RE: Pablo Sanchez. : 1960 CC#: [id number] Dear Dr. Smith It was my pleasure to re-evaluate your patient in the [facility] [place] [facility] [place]. I have enclosed a copy of the visit summary for your review and records. If you have any questions regarding this report, please feel free to contact me. Sincerely, Dinh Lezama MD, [facility] [place] [facility] [place] [facility] [address] [place] [address] P: [phone] F: [phone] [email or web address] Enclosure CBC W/ AUTO DIFF Collected: 08/13/2017 Status: F Source: [facility] 1:[address] [facility] REPOSITORY TYPE CODE TESTS RESULT OUT OF RANGE REFERENCE UNITS LAB [id number](L 3.6-11.0 E3/mcL OINC) Normal WBC 7.1 LAB [id number](L 3.90-6.10 E6/mcL OINC) Normal RBC 4.90 LAB [id number](L 13.5-18.0 G/DL OINC) Normal Hgb 15.4 LAB [id number](L 42.0-52.0 % OINC) Normal Hct 44.2 LAB [id number](L 11.5-14.5 % OINC) Normal RDW 13.2 LAB [id number](L 27.0-31.0 pg OINC) High MCH 31.3 LAB [id number](L 33.0-37.0 G/DL OINC) Normal MCHC 34.7 LAB [id number](L 78.0-100.0 fL OINC) Normal MCV 90.2 LAB [id number](L 7.4-11.0 fL OINC) Normal MPV 9.8 LAB [id number](L 130-400 E3/mcL OINC) Normal Platelet 317 Performed By: #### [id number] #### SATNAM [employer] [address] [place] [address] AUTO DIFF Collected: 08/13/2017 Status: F Source: [facility] 1:05 PM [facility] REPOSITORY Order Comment: Order Added by Discern Expert. TYPE CODE TESTS RESULT OUT OF RANGE REFERENCE UNITS LAB [id number](L 37.0-75.0 % OINC) Normal Neutro Auto 54.5 LAB [id number](L 20.0-55.0 % OINC) Normal Lymph Auto 22.6 LAB [id number](L 0.0-10.0 % OINC) High [facility] Auto 13.6 LAB [id number](L 0.0-11.0 % OINC) Normal Eos Auto 8.9 LAB [id number](L 0.0-2.0 % OINC) Normal Basophil Auto 0.4 LAB [id number](L 1.4-6.5 E3/mcL OINC) Normal Neutro 3.9 Absolute LAB [id number](L 1.2-3.4 E3/mcL OINC) Normal Lymph Absolute 1.6 LAB 91618717(L 0.0-0.7 E3/mcL OINC) High [facility] Absolute 1.0 LAB [id number](L 0.0-0.7 E3/mcL OINC) Normal Eos Absolute 0.6 LAB 80515213(L 0.0-0.2 E3/mcL OINC) Normal Basophil 0.0 Absolute Performed By: #### [id number] #### SATNAM [employer] [facility] [place] [id number] BMP Collected: 08/13/2017 Status: F Source: [facility] 1:[address] [place] [address] REPOSITORY TYPE CODE TESTS RESULT OUT OF RANGE REFERENCE UNITS LAB [id number](L 70-99 mg/dL OINC) Glucose Normal Lvl 93 LAB [id number](L 7-18 mg/dL OINC) High BUN 20 LAB 6479321(LO 0.6-1.3 mg/dL INC) Normal Creatinine 0.9 LAB 95621306(L 5.4-30.0 ratio OINC) Normal BUN/Creat Ratio 22.2 LAB [id number](L 8.4-10.2 mg/dL OINC) Calcium Normal Lvl 8.9 LAB [id number](L 136-145 mEq/L OINC) Low Sodium Lvl 135 LAB 17701679(L 3.5-5.1 mEq/L OINC) Normal Potassium Lvl 3.7 LAB 15581010(L 98-107 mEq/L OINC) Chloride Normal 106 LAB [id number](L 24.0-30.0 mEq/L OINC) Low CO2 22.6 Performed By: #### [id number] #### SATNAM [employer] [facility] [place] [address] EGFR Collected: 08/13/2017 Status: F Source: [facility] 1:05 [facility] REPOSITORY Order Comment: Order added by Discern Expert. TYPE CODE TESTS RESULT OUT OF RANGE REFERENCE UNITS LAB [id number](LO mL/min/1.73 INC) m2 Normal eGFR >60 LAB [id number](LO mL/min/1.73 INC) m2 Normal eGFR AA >60 Performed By: #### [id number] #### SATNAM [employer] [address] [place] [address] TSH Collected: 08/13/2017 Status: F Source: [facility] 1:05 PM [facility] REPOSITORY TYPE CODE TESTS RESULT OUT OF RANGE REFERENCE UNITS LAB [id number](LO 0.30-5.60 mIU/m INC) Low TSH 0.07 Performed By: #### [id number] #### SATNAM [employer] [address] [place] [address] PROGRESS Observed: 06/08/2017 Status: COMPLETED Source: [place] 10:51 AM [facility] [place] REPOSITORY HNO ID: [id number] Author: Toya Negrete Service: (none) Author Type: Physician Intranet Specialist Type: Progress Notes Filed: 06/08/2017 11:17 AM Note Text: [facility] [place] [facility] [place] HPI: The patient is here for follow up of COPD. Since the last visit 03/30/17, the patient has not sought care for exacerbation. Patient not compliant with prescribed Rx. Taking 15 mg Prednisone daily. Nebulizer treatments 4 treatments daily, adding budesonide twice daily. Combivent as needed, typically 1-2 times daily. Variable cough. Morning sputum, clear to yellowish. No hemoptysis. No pleuritic chest pain. Wakes up at times wheezing. Exertional dyspnea, difficulty shoveling sidewalk. Has stationary bike and tries to do 5-10 minutes daily. Patient previously unable to tolerate Symbicort and Spiriva. PMH changes: Reviewed with patient today. No changes. FAMH changes: Reviewed with patient today. No changes. SOCH changes: No changes. ROS: GEN: Appetite good. Weight stable. ENT: No blurry vision, eye pain, dry mouth. NEURO: No headache, focal weakness. Sleeps well. CV: No syncope, palpitations, exertional pain, pedal edema. No orthopnea. paroxysmal nocturnal dyspnea. GI: No dysphagia. Occasional heartburn. : No urinary hesitancy. Otherwise negative. Immunization History Administered Date(s) Administered Influenza Seasonal Inj Quadrivalent Age 3+ 01/16/2017 Per patient, PCP administered pneumonia vaccine. Allergies were reviewed and updated, and medications were reconciled with the patient. PHYSICAL EXAMINATION: BP 112/62 Pulse 113 Resp 16 Ht 5' 10 (1.78m) Wt 214 lb (97.1kg) SpO2 98% BMI 30.71 kg/(m2). Gen: No acute distress. Cooperative with examination. ENT: Sclerae clear. EOMI. Nares clear. Oral hygeine good. No sign of oral thrush. Resp: No stridor, accessory respiratory muscle use, supra- sternal or intercostal retractions. No wheezes, crackles, rubs. CV: Regular rythm. Heart tones normal. No carotid bruit. Radial pulses normal. Abd: Non distended. MSK: No kyphoscoliosis, joint deformities. Ext: Warm and well perfused. No clubbing, cyanosis, edema. Skin: Color normal. Texture normal. No rash, eczema, urticaria, ecchymoses. Neuro: Mental status normal. Affect normal. Muscle tone normal. No tremor. DATA REVIEW: DATE: 06/08/17 02/13/17 11/24/16 FVC 5.20 (107 % pred) 5.18?(107?% pred) 6.48?(1.33?% pred) FEV1 2.16 (59 % pred) 1.73?(47?% pred) 2.76?(74?% pred) FEV1/FVC 0.42 0.33 0.43 IMPRESSION/RECOMMEND: 1. Moderate COPD (chronic obstructive pulmonary disease) (HCC) Increased FEV1 and improved symptoms. - Continue budesonide (inhaled steroid) in nebulizer with albuterol two times per day. You may use albuterol via nebulizer or Combivent Respimat 1 inhalation up to 4 times per day as needed for shortness of breath/wheezing. - I do not recommend daily oral Prednisone secondary to intermediate project manager side effects, which include: -Increased appetite and possibly weight gain -Changes in mood and thinking -Trouble sleeping -Thin skin -Eye problems -High blood pressure -Heart problems -Osteoporosis and other bone problems -High blood sugar -Higher chance of getting infections - I re-addressed the pathophysiology of chronic bronchitis, emphysema, and COPD; and reviewed the management of this condition as outlined in the GOLD and ATS guidelines, including: smoking cessation, Pneumococcal and annual Influenza vaccination, bronchodilators, inhaled corticosteroids, antibiotics, exercise/rehabilitation, and oxygen. - I also again discussed mechanisms of action of medications, alternatives, and potential side effects of treatment. I addressed the questions of the patient, and he expressed understanding and acceptance of my answers. Toya Negrete PA-C [facility] [place] [facility] [place] [facility] [place] [address] [place] [phone] PROGRESS Observed: 06/04/2017 Status: COMPLETED Source: [place] 10:26 AM [facility] REPOSITORY HNO ID: [id number] Author: Shazia Adan Service: (none) Author Type: Physician Type: Progress Notes Filed: 06/04/2017 11:25 AM Note Text: SUBJECTIVE: Pablo Sanchez is a 55 year old male who presents today for Papillary thyroid cancer (T3N1a M0-stage III) and post surgical hypothyroidism follow up. History in brief, he was noted to have a palpable left thyroid nodule in fall 2014 Further evaluation with a Thyroid US revealed a left thyroid nodule measuring 2.5 x 1.8 x 2.4 cm containing calcifications and internal vascularity subcentimeter right thyroid nodules were also noted He underwent a FNA which revealed it to be Papillary thyroid cancer Date and type of original surgery-July 10, 2015-total thyroidectomy Performed by Dr. Geovanni [facility] [place] Gross pathology: Tumor foci Left lobe-2.5 cm Right lobe-0.5 cm 2/2 lymph nodes were positive + margins +perineural and extrathyroidal extension TNM stage T3N1a Mx-stage III He underwent ZELAYA remnant ablation in November 15, 2015 Dose: 159 mci I131 Post treatment WBS scan several foci of activity in the Neck, no distant mets His TSH have been persistently despite various adjustments in synthroid, Tirosint and armour Due to this, his Tg levels have been detectable. Post surgical hypothyroidism: previously, he decreased his Synthroid dose to 150 mcg daily, although I prescribed 200 mcg daily Then he alternated synthroid and tirosint Patient states that he develops dyspnea due to Synthroid and tirosint He has been evaluated by Pulmonology- currently on Prednisone Quit smoking 4 years ago. I switched him to [place]te last year Current dose: [place] 240 mcg daily Current Symptoms: energy level has improved Weight is stable Constipation is a chronic issue No temperature intolerance PAST MEDICAL HISTORY Diagnosis Date - COPD (chronic obstructive pulmonary disease) (HCC) - Papillary thyroid carcinoma (HCC) - Postoperative hypothyroidism PAST SURGICAL HISTORY Procedure Laterality Date - COLONOSCOP W/ OR W/O BRSH SPEC 11/09/2014 Colonoscopy - THYROIDECTOMY 07/10/2015 Papillary thyroid carcinoma. FAMILY HISTORY Problem Relation Age of Onset - Colon Cancer Maternal Grandmother - None Mother Alive in 80s - COPD Mother Social History Narrative None on file REVIEW OF SYSTEMS: GENERAL: Fever - No Changes in weight - No NEUROLOGICAL: Numbness, tingling or sensation of pins and needles - No Headaches-No HEAD, EYES, EARS, NOSE, AND THROAT: Changes in hearing - No Changes in vision - No CARDIOVASCULAR: Chest pain or pressure - No Palpitations - No RESPIRATORY: Cough - No Wheezing - No Shortness of breath - No GASTROINTESTINAL: Abdominal discomfort - No Nausea - No Vomiting - No EXTREMITY: Edema - No Claudication-No MUSCULOSKELETAL: Muscle pain or ache - No Arthralgia-No Skin: Rash - No Erythema-No ENDOCRINE: Diabetes - No Thyroid cancer-Yes PSYCHOLOGICAL: Depression - No Anxiety-No Current Outpatient Prescriptions on File Prior to Visit: ipratropium-albuterol (COMBIVENT RESPIMAT) 20-100 mcg/actuation mist Inhale 1 Puff as instructed four times daily as needed. levothyroxine (SYNTHROID) 125 mcg tablet Take 125 mcg by mouth daily before breakfast. albuterol HFA (PROVENTIL HFA, VENTOLIN HFA) 90 mcg/actuation inhaler Inhale 2 Puffs as instructed every 6 hours as needed for Wheezing/Shortness of Breath. No current facility-administered medications on file prior to visit. PHYSICAL EXAMINATION: BP 135/80 (BP Site: Left Arm, BP Position: Sitting, BP Cuff Size: Regular Adult) Pulse 102 Ht 177.8 cm (5' 10) Wt 93.5 kg (206 lb 3.2 oz) SpO2 96% BMI 29.59 kg/m2 General: alert AND oriented X 3, NAD Eyes:anicteric sclera, Extraocular motions intact Mucous membranes moist, no erythema Neck exam - supple, no significant adenopathy. Thyroid-No palpable thyroid tissue appreciated, well healed thyroidectomy scar, nontender to palpation CV - normal rate, regular rhythm, normal S1, S2 Resp - clear to auscultation bilaterally, no wheezing Abdomen - soft, nontender, non distended, normal Bowel sounds Musculoskeletal - no joint tenderness, deformity or swelling. Neuro - alert, oriented, normal speech, no focal findings, no tremor of outstretched hands, 2+ patellar reflexes Extremities without edema, Good peripheral pulses Skin: no rashes/erythema LABORATORY INVESTIGATION: Ref. Range 05/21/2016 11:12 11/19/2016 11:18 12/24/2016 11:09 02/23/2017 11:21 05/29/2017 11:15 Free T4 Latest Ref Range: 0.9 - 1.7 ng/dL 1.0 0.5 (L) 0.6 (L) 0.8 (L) 0.8 (L) TSH Latest Ref Range: 0.400 - 5.500 uU/mL 51.370 (H) 65.410 (H) 40.690 (H) 22.270 (H) 0.343 (L) Free T3 Latest Ref Range: 2.3 - 4.1 pg/mL 3.0 3.6 4.0 Thyroglobulin Latest Ref Range: 1.6 - 59.9 ng/mL 10.2 8.6 9.3 6.7 0.9 (L) Neck US from May 2017: Status post total thyroidectomy with no mass lesion identified in the thyroid gland. There are multiple bilateral cervical lymph nodes. ?A right superior cervical lymph node measures 1.2 x 0.4 x 0.9 cm, previously 1.5 x 0.6 x 0.8 cm. ?A right inferior cervical lymph node measuring 9 x 5 x 7 mm, previously 9 x 5 x 8 mm. ?A left inferior cervical lymph node measuring 2 x 1 x 1.4 cm, previously 1.9 x 1 x 1.4 cm. ?Also noted a new lymph node in the inferior left neck measuring 7 x 5 x 8 mm. ?? ASSESSMENT AND PLAN: 1. Papillary Thyroid Cancer, T3N1a M0-stage III 2. Cervical lymphadenopathy S/p total thyroidectomy on July 10, 2015 Given that the tumor was multifocal, + lymph node involvement and extrathyroidal extension, he received ZELAYA remnant ablation ([id number] mCi) TSH goal < 0.1 He didn't tolerate Synthroid and Tirosint I have discussed the importance of TSH suppression given that he is at high risk of recurrence TSH level has finally decreased and is within goal Tg level has decreased Continue current [place] dose Given that Tg level has decreased, therefore the cervical lymph nodes are likely benign I personally viewed the thyroid US images and these lymph nodes are unchanged since last US 3. Post-surgical Hypothyroidism Clinically and bio-chemically euthyroid Discussed the importance of maintaining a low TSH given the risk of recurrence Continue current [place] dose 4. Tachycardia: Patient is asymptomatic, therefore, will monitor for now Recommended him to notify me if he feels palpitations Follow up in 4 months, labs prior to appt Shazia Adan MD 06/04/17 CNOV Observed: 06/04/2017 Status: COMPLETED Source: [place] 10:25 AM [facility] REPOSITORY Office Visit (ENDMED) PABLO SANCHEZ ([id number]) 1960 M Date Time Provider Department 06/04/17 10:25 AM SHAZIA ADAN During your visit today, we recorded the following information about you: Pulse Blood pressure Weight Height 102/minute 135/80 93.5 kg 1.778 m Shazia Adan MD 06/04/2017 11:25 AM Signed SUBJECTIVE: Pablo Sanchez is a 55 year old male who presents today for Papillary thyroid cancer (T3N1a M0-stage III) and post surgical hypothyroidism follow up. History in brief, he was noted to have a palpable left thyroid nodule in fall 2014 Further evaluation with a Thyroid US revealed a left thyroid nodule measuring 2.5 x 1.8 x 2.4 cm containing calcifications and internal vascularity subcentimeter right thyroid nodules were also noted He underwent a FNA which revealed it to be Papillary thyroid cancer Date and type of original surgery-July 10, 2015-total thyroidectomy Performed by [facility] Gross pathology: Tumor foci Left lobe-2.5 cm Right lobe-0.5 cm 2/2 lymph nodes were positive + margins +perineural and extrathyroidal extension TNM stage T3N1a Mx-stage III He underwent ZELAYA remnant ablation in November 15, 2015 Dose: 159 mci I131 Post treatment WBS scan several foci of activity in the Neck, no distant mets His TSH have been persistently despite various adjustments in synthroid, Tirosint and armour Due to this, his Tg levels have been detectable. Post surgical hypothyroidism: previously, he decreased his Synthroid dose to 150 mcg daily, although I prescribed 200 mcg daily Then he alternated synthroid and tirosint Patient states that he develops dyspnea due ANDquot;to SynthroidANDquot; and tirosint He has been evaluated by Pulmonology- currently on Prednisone Quit smoking 4 years ago. I switched him to [place] last year Current dose: [place] 240 mcg daily Current Symptoms: energy level has improved Weight is stable Constipation is a chronic issue No temperature intolerance PAST MEDICAL HISTORY Diagnosis Date - COPD (chronic obstructive pulmonary disease) (HCC) - Papillary thyroid carcinoma (HCC) - Postoperative hypothyroidism PAST SURGICAL HISTORY Procedure Laterality Date - COLONOSCOP W/ OR W/O BRSH SPEC 11/09/2014 Colonoscopy - THYROIDECTOMY 07/10/2015 Papillary thyroid carcinoma. FAMILY HISTORY Problem Relation Age of Onset - Colon Cancer Maternal Grandmother - None Mother Alive in 80s - COPD Mother Social History Narrative None on file REVIEW OF SYSTEMS: GENERAL: Fever - No Changes in weight - No NEUROLOGICAL: Numbness, tingling or sensation of pins and needles - No Headaches-No HEAD, EYES, EARS, NOSE, AND THROAT: Changes in hearing - No Changes in vision - No CARDIOVASCULAR: Chest pain or pressure - No Palpitations - No RESPIRATORY: Cough - No Wheezing - No Shortness of breath - No GASTROINTESTINAL: Abdominal discomfort - No Nausea - No Vomiting - No EXTREMITY: Edema - No Claudication-No MUSCULOSKELETAL: Muscle pain or ache - No Arthralgia-No Skin: Rash - No Erythema-No ENDOCRINE: Diabetes - No Thyroid cancer-Yes PSYCHOLOGICAL: Depression - No Anxiety-No Current Outpatient Prescriptions on File Prior to Visit: ipratropium-albuterol (COMBIVENT RESPIMAT) 20-100 mcg/actuation mist Inhale 1 Puff as instructed four times daily as needed. levothyroxine (SYNTHROID) 125 mcg tablet Take 125 mcg by mouth daily before breakfast. albuterol HFA (PROVENTIL HFA, VENTOLIN HFA) 90 mcg/actuation inhaler Inhale 2 Puffs as instructed every 6 hours as needed for Wheezing/Shortness of Breath. No current facility-administered medications on file prior to visit. PHYSICAL EXAMINATION: BP 135/80 (BP Site: Left Arm, BP Position: Sitting, BP Cuff Size: Regular Adult) Pulse 102 Ht 177.8 cm (5' 10ANDquot;) Wt 93.5 kg (206 lb 3.2 oz) SpO2 96% BMI 29.59 kg/m2 General: alert ANDamp; oriented X 3, NAD Eyes:anicteric sclera, Extraocular motions intact Mucous membranes moist, no erythema Neck exam - supple, no significant adenopathy. Thyroid-No palpable thyroid tissue appreciated, well healed thyroidectomy scar, nontender to palpation CV - normal rate, regular rhythm, normal S1, S2 Resp - clear to auscultation bilaterally, no wheezing Abdomen - soft, nontender, non distended, normal Bowel sounds Musculoskeletal - no joint tenderness, deformity or swelling. Neuro - alert, oriented, normal speech, no focal findings, no tremor of outstretched hands, 2+ patellar reflexes Extremities without edema, Good peripheral pulses Skin: no rashes/erythema LABORATORY INVESTIGATION: Ref. Range 05/21/2016 11:12 11/19/2016 11:18 12/24/2016 11:09 02/23/2017 11:21 05/29/2017 11:15 Free T4 Latest Ref Range: 0.9 - 1.7 ng/dL 1.0 0.5 (L) 0.6 (L) 0.8 (L) 0.8 (L) TSH Latest Ref Range: 0.400 - 5.500 uU/mL 51.370 (H) 65.410 (H) 40.690 (H) 22.270 (H) 0.343 (L) Free T3 Latest Ref Range: 2.3 - 4.1 pg/mL 3.0 3.6 4.0 Thyroglobulin Latest Ref Range: 1.6 - 59.9 ng/mL 10.2 8.6 9.3 6.7 0.9 (L) Neck US from May 2017: Status post total thyroidectomy with no mass lesion identified in the thyroid gland. There are multiple bilateral cervical lymph nodes. ?A right superior cervical lymph node measures 1.2 x 0.4 x 0.9 cm, previously 1.5 x 0.6 x 0.8 cm. ?A right inferior cervical lymph node measuring 9 x 5 x 7 mm, previously 9 x 5 x 8 mm. ?A left inferior cervical lymph node measuring 2 x 1 x 1.4 cm, previously 1.9 x 1 x 1.4 cm. ?Also noted a new lymph node in the inferior left neck measuring 7 x 5 x 8 mm. ?? ASSESSMENT AND PLAN: 1. Papillary Thyroid Cancer, T3N1a M0-stage III 2. Cervical lymphadenopathy S/p total thyroidectomy on July 10, 2015 Given that the tumor was multifocal, + lymph node involvement and extrathyroidal extension, he received ZELAYA remnant ablation ([id number] mCi) TSH goal ANDlt; 0.1 He didn't tolerate Synthroid and Tirosint I have discussed the importance of TSH suppression given that he is at high risk of recurrence TSH level has finally decreased and is within goal Tg level has decreased Continue current [place] dose Given that Tg level has decreased, therefore the cervical lymph nodes are likely benign I personally viewed the thyroid US images and these lymph nodes are unchanged since last US 3. Post-surgical Hypothyroidism Clinically and bio-chemically euthyroid Discussed the importance of maintaining a low TSH given the risk of recurrence Continue current [place] dose 4. Tachycardia: Patient is asymptomatic, therefore, will monitor for now Recommended him to notify me if he feels palpitations Follow up in 4 months, labs prior to appt Shazia Adan MD 06/04/17 Shazia Adan MD 06/04/2017 10:41 AM Addendum Continue current [place] dose Follow up in 4 months Get labs drawn 1 week before your next appt Notify me If you continue to notice rapid heart beat Referring Provider: NO PCP [[id number]] Allergies As of Date: 06/04/2017 Noted Allergy Reaction TETRACYCLINE 10/17/2014 5 - Intolerance TETRACYCLINES 08/05/2015 2 - Rash Date Reviewed: 06/04/2017 Reviewed by: Shazia Adan - Fully Assessed Reason for Visit: Follow Up [171] Primary Visit Diagnosis:Papillary thyroid carcinoma (HCC) [C73] Other Visit Diagnoses:Cervical lymphadenopathy [R59.0] Postoperative hypothyroidism [E89.0] Tachycardia [R00.0] Order(s):THYROGLOBULIN BLD [SQTG] Order #: [id number] FUTURE TSH BLD [SQTSH] Order #: [id number] FUTURE T4 FREE/FREE THYROX [SQFT4] Order #: [id number] FUTURE T3 FREE BLD [SQFREET3] Order #: [id number] FUTURE Prescriptions as of 06/04/2017 Sig: ALBUTEROL SULFATE 2.5 MG/3 ML* Use 3 mL via nebulizer every * IPRATROPIUM 20 MCG-ALBUTEROL * Inhale 1 Puff as instructed f* BUDESONIDE 0.5 MG/2 ML SUSPEN* INHALE 2 ML BY NEBULIZER OVER* ARMOUR THYROID 240 MG TABLET Take 240 mg by mouth once sergio* PREDNISONE 10 MG TABLET Take 4 tabs daily x 3 days, t* PREDNISONE 10 MG TABLET Take 1.5 tablets by mouth onc* GUAIFENESIN ER 600 MG TABLET,* Take 1 tablet by mouth twice * ALBUTEROL SULFATE HFA 90 MCG/* Inhale 2 Puffs as instructed * ALBUTEROL SULFATE HFA 90 MCG/* Inhale 2 Puffs as instructed * Medication notes this encounter PREDNISONE 10 MG TABLET >> Luis Enrique Arce MA 06/04/2017 10:20 AM >> LUIS ENRIQUE ARCE MA Jun 04, 2017 10:20 AM D/c ALBUTEROL SULFATE HFA 90 MCG/ACTUATION AEROSOL INHALER >> Luis Enrique Arce MA 06/04/2017 10:20 AM >> LUIS ENRIQUE ARCE MA Jun 04, 2017 10:20 AM D/c ALBUTEROL SULFATE HFA 90 MCG/ACTUATION AEROSOL INHALER >> Luis Enrique Arce MA 06/04/2017 10:20 AM >> LUIS ENRIQUE ARCE MA Jun 04, 2017 10:20 AM D/c Problem List As Of Date 06/04/2017 Noted Resolved Special screening for malignant neoplasms, colo*INVALID FOR*11/09/2014 SI (sacroiliac) joint dysfunction [M53.3] INVALID FOR* Midline low back pain with right-sided sciatica*INVALID FOR* DDD (degenerative disc disease), lumbar [M51.36]INVALID FOR* Papillary thyroid carcinoma (HCC) [C73] INVALID FOR* Postoperative hypothyroidism [E89.0] INVALID FOR* High serum thyroglobulin [R79.89] INVALID FOR* Cervical lymphadenopathy [R59.0] INVALID FOR* Other instructions from your clinician: Continue current [place] dose Follow up in 4 months Get labs drawn 1 week before your next appt Notify me If you continue to notice rapid heart beat Encounter Status:Closed by ROBERTOQUIQUESHAZIA on 06/04/17 US THYROID/PARATHYROID Observed: 05/29/2017 Status: F Source: [place] 11:26 AM [facility] REPOSITORY * * *Final Report* * * DATE OF EXAM: May 29 2017 11:26AM WRU 1048 - US THYROID/PARATHYROID / PROCEDURE REASON: Malignant neoplasm of thyroid gland * * * * Physician Interpretation * * * * US THYROID/PARATHYROID EXAM DATE/TIME: 05/29/2017 11:26 AM CLINICAL HISTORY: None. COMPARISON: History of thyroid cancer, status post total thyroidectomy in 2016. TECHNIQUE: Sonography and Doppler imaging of the thyroid bed/neck soft tissue was performed. Images were obtained and stored in a permanent archive. FINDINGS: Status post total thyroidectomy with no mass lesion identified in the thyroid gland. There are multiple bilateral cervical lymph nodes. A right superior cervical lymph node measures 1.2 x 0.4 x 0.9 cm, previously 1.5 x 0.6 x 0.8 cm. A right inferior cervical lymph node measuring 9 x 5 x 7 mm, previously 9 x 5 x 8 mm. A left inferior cervical lymph node measuring 2 x 1 x 1.4 cm, previously 1.9 x 1 x 1.4 cm. Also noted a new lymph node in the inferior left neck measuring 7 x 5 x 8 mm. IMPRESSION: Bilateral cervical lymph nodes as described above. Typewriter Aligner: PSCJasper Transcribe Date/Time: May 30 2017 12:25P Dictated by : EDUARDO CHOW MD This examination was interpreted and the report reviewed and electronically signed by: EDUARDO CHOW MD on May 30 2017 12:31PM EST [id number] Collected: 05/29/2017 Status: F Source: [place] 11:15 AM [facility] REPOSITORY TYPE CODE TESTS RESULT OUT OF RANGE REFERENCE UNITS LAB TSH 0.400-5.500 uU/mL Low TSH 0.343 Performed By: #### TSH, FT4, TG #### [facility] [address] [place], [place] [address] FREE T4 Collected: 05/29/2017 Status: F Source: [place] 11:15 AM [facility] REPOSITORY TYPE CODE TESTS RESULT OUT OF RANGE REFERENCE UNITS LAB FT4 0.9-1.7 ng/dL Low Free T4 0.8 Performed By: #### TSH, FT4, TG #### [facility] clinovo [address] [place], [place] [address] THYROGLOBULIN Collected: 05/29/2017 Status: F Source: [place] 11:15 AM [facility] [place] REPOSITORY TYPE CODE TESTS RESULT OUT OF REFERENCE UNITS RANGE LAB THYG 1.6-59.9 ng/mL Thyroglobulin Low 0.9 Result Comment: Test analyzed by the Siemens Immulite method LAB TGABS <14.4 IU/mL TG High Antibody Screen 24.5 Performed By: #### TSH, FT4, TG #### [facility] [address] [place], [place] [address] PROGRESS Observed: 05/29/2017 Status: COMPLETED Source: [place] 10:42 AM [facility] REPOSITORY HNO ID: [id number] Author: Molly Hirsch Rdms Service: (none) Author Type: (none) Type: Progress Notes Filed: 05/29/2017 11:27 AM Note Text: Radiology Service Progress Note PATIENT NAME: Pablo Sanchez DATE OF SERVICE: May 29, 2017 TIME: 10:42 AM PATIENT IDENTITY VERIFICATION COMPLETED USING TWO (2) METHODS: Patient confirmed name verbally and Date of . PATIENT GENDER DATA: Male PATIENT RELEVANT IMPLANT DATA REVIEWED: Not Applicable RADIOLOGY DEPARTMENT: Ultrasound PERIPHERAL IV DATA: Not applicable SIGNED BY: Molly Hirsch Rdms May 29, 2017 10:42 AM ALLERGIES ALLERGIES DATE TYPE / NAME / CODE REACTION SEVERITY SOURCE CODE 02/12/2018 Drug Tetracyclines/F0010 Rash Unknown [place] Allergy/41 24757(RXNORM) Community 3870773([facility] CT) Repository 08/05/2015 Drug TETRACYCLINES RASH [place] Class/4195 Clinic Other 54494([facility] ED CT) Repository 10/17/2014 DRUG TETRACYCLINE INTOLERANCE [place] INGREDI/41 Clinic Main 5832189([facility] OMED CT) Repository Drug/16484 tetracycline HIVES [place] [facility] CT) System Repository Drug/67790 Spiriva chest tightness [place] [facility]) System Repository ENCOUNTERS ENCOUNTERS ADMIT/DISCHARGE ACCOUNT NUMBER ADMITTING ENCOUNTER LOCATION SOURCE CLASS 05/07/2018/05/07/19 [id number] TEJA, Ambulatory [address] Repository 04/23/2018/04/23/20 [id number] Ambulatory [address] Repository 04/15/2018/04/15/20 [id number] Emergency [address] ding:ED Repository 04/09/2018 [id number] Ambulatory [facility] ding:AshFamP Repository rac 04/09/2018/04/09/20 [id number] [place], [address] ding:Ash[facility]amP Repository racRoom: Room 1 02/12/2018/02/14/20 [id number] [place] [facility] [address] ding:FI9Jrti Repository : KO275Ioh: 1 02/12/2018 [id number] Ambulatory BMSBuilding: [facility] Repository 02/05/2018 [id number] Ambulatory BBuilding:OP [facility] Repository 02/05/2018 [id number] Ambulatory BBuilding:OS [facility] Repository 01/14/2018/01/16/20 [id number] Ambulatory [address] Repository 01/05/2018/01/06/20 [id number] Ambulatory [address] Repository 01/05/2018/01/06/20 [id number] Ambulatory [address] Repository 12/21/2017/12/22/19 [id number] Ambulatory [address] Repository 12/09/2017/12/10/19 [id number] Sarah, Ambulatory [address] ding:AshFamP Repository racRoom: Room 1 10/05/2017/10/06/19 [id number] Ambulatory [address] Repository 09/24/2017/09/25/19 [id number] Ambulatory [address] Repository 09/10/2017/09/11/19 [id number] Ambulatory [place] [facility] [place] Repository 09/10/2017/09/16/19 [id number] Ambulatory [place] [facility] [place] Repository 09/07/2017/09/08/19 [id number] Sarah, [address] ding:[place] Repository racRoom: Room 2 08/13/2017/08/14/19 [id number] Sarah, [address] ding:[facility] Repository 06/08/2017/06/10/19 [id number] Ambulatory [place] [facility] [place] Repository 06/08/2017/06/10/19 [id number] Ambulatory [place] [address] Clinic [facility] [place] Repository 06/04/2017/06/04/19 [id number] Ambulatory [address] [place] Repository 05/29/2017/05/29/19 [id number] Ambulatory [address] [place] Repository 05/29/2017/05/29/19 [id number] Ambulatory [address] Main [place] Repository PAYERS PAYERS ENCOUNTER GUARANTOR PAYER SUBSCRIBER SOURCE 04/15/2018 PABLO [place] PABLO Alejandre [id number] [facility] [id number] Number: Repository [address]Ypl: [phone] [id number] [phone] () Date:2018-04-15 04/15/2018 Secondary PABLO Alejandre Insurance:MEDICAIDPol COTTRELLDOB: [facility] Number: [id number] [facility] [id number] Repository Date:2018-04-15 04/15/2018 Tertiary NOT GIVENUNK [place] Insurance:SELF PAY [facility] Number: Effective Repository Date:2018-04-15 04/09/2018 PABLO [place] PABLO Parker [facility] Insurance:[address] [place], [place] [address]DOB: [facility] [id number] MEDICARE [id number] [facility] Number: [address] [place], [place] [address]Edk: Date:2018-04-09 [address]Vcl: [id number] (HP) Name:[id number] O (HP)Tel: (000) [address]VV[address]AM[address], 000-0000 (WP) [place] [address]AQ: 04/09/2018 PABLO [place] Primary PABLO Banerjeearitan COTTRELLDOB: Insurance:[address] [place], [place] [address]B: [facility] [id number] MEDICARE [id number] [place] [address] Number: 1 [place], [place] [address]Bef: Date:2017-12-0929577-2840Bvl: [id number] (HP) Name:CD:[id number] O (HP)Tel: (000) [address]LURZSS[address], 000-0000 ([place]) [place] [address]PO: 02/12/2018 PABLO [place] Primary PABLO [place] [id number] Insurance:MEDICARE COTTRELLDOB: [facility] [id number] Number: Repository [id number]: 330 [id number] 54 () Date:2018-02-05 02/12/2018 Secondary PABLO Alejandre Insurance:MEDICAIDPol COTTRELLDOB: [facility] icy Number: [id number] Hospital [id number] Repository Date:2018-02-05 02/12/2018 Tertiary NOT GIVENUNK [place] Insurance:SELF PAY [facility] Hospital Number: Effective Repository Date:2018-02-05 02/12/2018 PABLO [place] Primary PABLO GOLDSTEINRELL5811 Insurance:MEDICARE COTTRELLDOB: [facility] PART A [facility] [id number] Number: Repository [address]Iwp: 330 [id number] 54 (HP) Date:2018-02-05 02/12/2018 Secondary PABLO Alejandre Insurance:MEDICAIDPol COTTRELLDOB: [facility] icy Number: [id number] Hospital [id number] Repository Date:2018-02-05 02/12/2018 Tertiary NOT GIVENUNK [place] Insurance:SELF PAY [facility] Hospital Number: Effective Repository Date:2018-02-12 12/09/2017 PABLO [place] PABLO SANCHEZB: Insurance:1500 COTTRELLDOB: [facility] [id number] MEDICARE [id number] System [place] PRIMARYPolicy Number: 1 [place] Repository RDWOOUNM [facility] [place] [address]Cqq: Date:2017-09-07 [address]Bfi: [id number] (HP) Name:CD:[id number] O ()Tel: (000) [address]OILCYCUCJ, 000-0000 () [place] [address]JK: 09/07/2017 PABLO [place] PABLO Parker JORDYNB: Insurance:1500 COTTRELLDOB: [facility] [id number] BOX MEDICARE [id number] System [place], [place] PRIMARYPolicy Number: [address], Repository [id number]: Effective [place] [id number]: Date:2017-05-22 - (HP) [id number] (HP)Tel: (000) Name:CD:[id number] O 000-0000 (WP) [address] [address]SDMEPJSWS, [place] [address]OP: 08/13/2017 PABLO [place] Primary PABLO Parker JORDYNB: Insurance:MedicarePol COTTRELLDOB: [facility] [id number] BOX icy Number: Effective [id number] System [address], [place] Date:2017-08-13 - [address], Repository [id number]: [id number] [place] [phone]: Name:CD:[id number] [address]OX (HP) [address]PAKGHTDPCQ, [place] (HP)Tel: [phone]) [phone]: (wp) [phone]
== END 2018-04-15 14:39 | disposition home or self-care (01) ==
PROVIDERS: Emergency Provider Emergency Medicine; Family Provider Family Medicine; PCP Family Medicine
DX: R04.2 Hemoptysis (principal); Z91.19 Patient's noncompliance with other medical treatment and regimen; Z87.891 Personal history of nicotine dependence; J44.9 Chronic obstructive pulmonary disease, unspecified; C73 Malignant neoplasm of thyroid gland; C77.8 Secondary and unspecified malignant neoplasm of lymph nodes of multiple regions
CPT/HCPCS: 71046; 85025; 99282

== ENCOUNTER → 2021-04-24 10:58 | Outpatient (CLI) | payer MEDICARE, MEDICAID, SELFPAY ==
[2021-04-24 12:39] LABS: Vitamin D,25 Hydroxy 28.1 ng/mL
[2021-04-24 12:49] LABS: AST(SGOT) 18 U/L (15-37); Alanine Aminotransfer ALT/SGPT 33 U/L (16-61); Albumin, Serum 3.6 g/dL (3.2-5.0); Alkaline Phosphatase 70 U/L (45-117); Anion Gap 11 (5-15); BUN 14 mg/dL (7-18); BUN/Creat Ratio 15.3 RATIO (10-20); Calcium,Total 8.8 mg/dL (8.5-10.1); Chloride 105 mmol/L (98-107); Creatinine, Serum 0.92 mg/dL (0.70-1.30); EST Glomerular Filtration Rate 89 mL/min (>60); Est Glom Filt Rate - Afr Amer 108 mL/min (>60); Globulin 3.5 g/dL (2.2-4.2); Glucose 106 mg/dL (74-106); Potassium 4.2 mmol/L (3.5-5.1); Protein, Total 7.1 g/dL (6.4-8.2); Sodium Level 141 mmol/L (136-145)
[2021-04-24 12:50] LABS: T4 Free Direct 1.82 ng/dL (0.76-1.46); Thyroid Stim Hormone (TSH) 0.09 uIU/mL (0.358-3.74)
[2021-04-26 09:17] LABS: Anti-Thyroglobulin AB < 1.0 IU/mL (0.0-0.9); Thyroglobulin, Serum Qt. 0.1 ng/mL (1.4-29.2)
== END ==
PROVIDERS: PCP Family Medicine; Referring Provider Internal Medicine Endocrinology, Diabetes & Metabolism; Visit Provider Internal Medicine Endocrinology, Diabetes & Metabolism
DX: E89.2 Postprocedural hypoparathyroidism (principal); C73 Malignant neoplasm of thyroid gland; E89.0 Postprocedural hypothyroidism; E55.9 Vitamin D deficiency, unspecified
CPT/HCPCS: 36415; 80053; 82306; 84432; 84439; 84443; 86800

== ENCOUNTER → 2021-10-14 | Outpatient (CLI) | payer MEDICARE, MEDICAID, SELFPAY ==
[2021-10-14 13:36] LABS: Calcium,Total 8.9 mg/dL (8.5-10.1); T4 Free Direct 1.14 ng/dL (0.76-1.46); Thyroid Stim Hormone (TSH) 5.41 uIU/mL (0.358-3.74)
[2021-10-14 13:53] LABS: PTHIN 43.1 pg/mL (18.4-80.1)
== END | disposition home or self-care (01) ==
LOC: BIMLAB 11:59
PROVIDERS: PCP Family Medicine; Referring Provider Internal Medicine Endocrinology, Diabetes & Metabolism; Visit Provider Internal Medicine Endocrinology, Diabetes & Metabolism
DX: E89.2 Postprocedural hypoparathyroidism (principal); E89.0 Postprocedural hypothyroidism
CPT/HCPCS: 36415; 82310; 83970; 84439; 84443

== ENCOUNTER → 2022-04-24 | Outpatient (CLI) | payer MEDICARE, MEDICAID, SELFPAY ==
[2022-04-24 12:42] LABS: Vitamin D,25 Hydroxy 77.9 ng/mL
[2022-04-24 12:48] LABS: ALB/GLOB Ratio 1.2 RATIO (0.9-2.4); AST(SGOT) 18 U/L (15-37); Alanine Aminotransfer ALT/SGPT 39 U/L (16-61); Albumin, Serum 3.7 g/dL (3.2-5.0); Alkaline Phosphatase 58 U/L (45-117); Anion Gap 2 (5-15); BUN 17 mg/dL (7-18); BUN/Creat Ratio 18.2 RATIO (10-20); Chloride 106 mmol/L (98-107); Creatinine, Serum 0.93 mg/dL (0.70-1.30); EST Glomerular Filtration Rate 87 mL/min (>60); Est Glom Filt Rate - Afr Amer 105 mL/min (>60); Globulin 3.2 g/dL (2.2-4.2); Glucose 121 mg/dL (74-106); Potassium 4.1 mmol/L (3.5-5.1); Protein, Total 6.9 g/dL (6.4-8.2); Sodium Level 138 mmol/L (136-145); T4 Free Direct 1.31 ng/dL (0.76-1.46); Thyroid Stim Hormone (TSH) 2.25 uIU/mL (0.358-3.74)
[2022-04-26 20:15] LABS: Anti-Thyroglobulin AB < 1.0 IU/mL (0.0-0.9); Thyroglobulin, Serum Qt. 0.3 ng/mL (1.4-29.2)
== END | disposition home or self-care (01) ==
LOC: BIMLAB 11:27
PROVIDERS: PCP Family Medicine; Referring Provider Internal Medicine Endocrinology, Diabetes & Metabolism; Visit Provider Internal Medicine Endocrinology, Diabetes & Metabolism
DX: C73 Malignant neoplasm of thyroid gland (principal); E89.2 Postprocedural hypoparathyroidism; E89.0 Postprocedural hypothyroidism; E55.9 Vitamin D deficiency, unspecified
CPT/HCPCS: 36415; 80053; 82306; 84432; 84439; 84443; 86800

== ENCOUNTER → 2023-04-28 | Outpatient (CLI) | payer MEDICARE, MEDICAID, SELFPAY ==
[2023-04-28 15:24] LABS: Vitamin D,25 Hydroxy 51.7 ng/mL
[2023-04-28 15:30] LABS: ALB/GLOB Ratio 1.2 RATIO (0.9-2.4); AST(SGOT) 21 U/L (15-37); Alanine Aminotransfer ALT/SGPT 34 U/L (16-61); Albumin, Serum 3.7 g/dL (3.2-5.0); Alkaline Phosphatase 55 U/L (45-117); Anion Gap 7 (5-15); BUN 20 mg/dL (7-18); BUN/Creat Ratio 20.6 RATIO (10-20); Calcium,Total 8.5 mg/dL (8.5-10.1); Chloride 107 mmol/L (98-107); Creatinine, Serum 0.97 mg/dL (0.70-1.30); EST Glomerular Filtration Rate 83 mL/min (>60); Est Glom Filt Rate - Afr Amer 100 mL/min (>60); Globulin 3.1 g/dL (2.2-4.2); Glucose 103 mg/dL (74-106); Potassium 3.9 mmol/L (3.5-5.1); Protein, Total 6.8 g/dL (6.4-8.2); Sodium Level 138 mmol/L (136-145); Thyroid Stim Hormone (TSH) 2.89 uIU/mL (0.358-3.74)
[2023-04-30 16:08] LABS: Anti-Thyroglobulin AB < 1.0 IU/mL (0.0-0.9); Thyroglobulin, Serum Qt. 0.6 ng/mL (1.4-29.2)
== END | disposition home or self-care (01) ==
LOC: BIMLAB 11:49
PROVIDERS: PCP Family Medicine; Referring Provider Internal Medicine Endocrinology, Diabetes & Metabolism; Visit Provider Internal Medicine Endocrinology, Diabetes & Metabolism
DX: C73 Malignant neoplasm of thyroid gland (principal); E89.2 Postprocedural hypoparathyroidism; E89.0 Postprocedural hypothyroidism; E55.9 Vitamin D deficiency, unspecified
CPT/HCPCS: 36415; 80053; 82306; 84432; 84439; 84443; 86800

== ENCOUNTER → 2024-04-22 | Outpatient (CLI) | payer MEDICARE, MEDICAID, SELFPAY ==
[2024-04-22 12:41] LABS: Vitamin D,25 Hydroxy 26.3 ng/mL
[2024-04-22 12:45] LABS: ALB/GLOB Ratio 1.1 RATIO (0.9-2.4); AST(SGOT) 16 U/L (15-37); Alanine Aminotransfer ALT/SGPT 40 U/L (16-61); Albumin, Serum 3.7 g/dL (3.2-5.0); Alkaline Phosphatase 59 U/L (45-117); Anion Gap 4 (5-15); BUN 16 mg/dL (7-18); Chloride 104 mmol/L (98-107); Creatinine, Serum 1.07 mg/dL (0.70-1.30); EST Glomerular Filtration Rate 74 mL/min (>60); Est Glom Filt Rate - Afr Amer 89 mL/min (>60); Globulin 3.4 g/dL (2.2-4.2); Glucose 117 mg/dL (74-106); Potassium 4.2 mmol/L (3.5-5.1); Protein, Total 7.1 g/dL (6.4-8.2); Sodium Level 136 mmol/L (136-145); T4 Free Direct 1.51 ng/dL (0.76-1.46)
[2024-04-26 11:07] LABS: Anti-Thyroglobulin AB < 1.0 IU/mL (0.0-0.9); Thyroglobulin, Serum Qt. 0.3 ng/mL (1.4-29.2)
== END | disposition home or self-care (01) ==
LOC: BIMLAB 10:50
PROVIDERS: PCP Family Medicine; Referring Provider Internal Medicine Endocrinology, Diabetes & Metabolism; Visit Provider Internal Medicine Endocrinology, Diabetes & Metabolism
DX: E55.9 Vitamin D deficiency, unspecified (principal); C73 Malignant neoplasm of thyroid gland; E89.0 Postprocedural hypothyroidism; E89.2 Postprocedural hypoparathyroidism
CPT/HCPCS: 36415; 80053; 82306; 84432; 84439; 84443; 86800

== ENCOUNTER 2024-06-19 14:29 | Inpatient (IN) | payer MEDICARE, SELFPAY ==
[2024-06-19] VITALS (21 sets, daily range): BP systolic 105–164; BP diastolic 84–103; PULSE 119–137; RESP 12–34; TEMP 36.4–36.7; O2SAT 89–100; BMI 25.9; BMI 26.6
--- NOTE | 2024-06-19 14:59 | EX.ED.DYSGE1 ---
HPI <MALU Rosales - Last Filed: 06/19/24 16:10> History of Present Illness Chief Complaint: Shortness of Breath Narrative Narrative: Patient is a 64-year-old male with history of COPD history of hypothyroidism, chronic back pain quit smoking 15 years ago who presents to the emergency department with significant shortness of breath. Patient states over the last 2 to 3 days, has been having a runny nose, cough and congestion. How over the last several hours, he states he cannot get enough air and is tripoding. Patient was 88% on room air, patient is tachypneic, has conversational dyspnea. Per the , the patient is looking much worse than he was 24 hours ago. PFS <MALU Rosales - Last Filed: 06/19/24 16:10> [facility] Medical History (Updated 06/19/24 @ 16:[address] Phong Ribera MD) Hypertension Post-surgical hypoparathyroidism Postoperative primary hypothyroidism Chronic bronchitis Cancer Back problem Home Medications ?Medication ?Instructions ?Recorded ?Last Taken ?Type albuterol sulfate 2.5 mg/3 mL 2.5 mg inhalation Q6H PRN PRN Sob 06/28/16 02/12/18 History (0.083 %) solution for nebulization &/Or Wheezing budesonide-formoterol HFA [address] 06/28/16 02/12/18 History mcg-4.5 mcg/actuation aerosol inhaler (Symbicort) ipratropium 20 mcg-albuterol 100 1 puff inhalation Q6H 03/19/21 Unknown History mcg/actuation mist for inhalation (Combivent Respimat) levothyroxine 200 mcg tablet 200 mcg PO .2 sund, 1.5 Wed #102 02/25/24 Unknown Rx tabs cholecalciferol (vitamin D3) 50 50 mcg PO DAILY PRN 04/22/24 Unknown History mcg (2,000 unit) capsule prednisone 5 mg tablet 15 mg PO DAILY 04/22/24 Unknown History Allergy/AdvReac Type Severity Reaction Status Date / Time Tetracyclines Allergy Rash Verified 06/19/24 14:31 Family History Other Respiratory disease Surgical History H/O thyroidectomy Social History Smoking Status: Former smoker alcohol intake: current alcohol intake frequency: a few times a week substance use type: does not use what type of physical activity do you participate in: none ROS <MALU Rosales - Last Filed: 06/19/24 16:10> ROS ED ROS Narrative Constitutional: Negative for fever, chills, weight loss. Positive for weakness Eyes: Negative for vision loss, vision change, double vision ENT: Negative for any sore throat, ear pain. Positive for nasal congestion Cardiovascular: Negative for any chest pain, tightness, palpitations Respiratory: Negative for any hemoptysis. Positive for cough, sputum production, dyspnea, dyspnea on exertion Gastrointestinal: Negative for any abdominal pain, nausea, vomiting, diarrhea, constipation, blood in stool, blood in vomit : Negative for any urinary frequency, dysuria, retention, blood in urine Muscle skeletal: Negative for any neck pain. Positive back pain, myalgias Neurological: Negative for any headache, syncope, dizziness Skin: Negative for any rashes, itching, abrasions, lacerations Psychiatric: Negative for any depression, anxiety, stress, suicidal ideation, homicidal ideation Hematologic: Negative for any excessive bruising, easy bleeding EXAM <MALU Rosales - Last Filed: 06/19/24 16:10> Physical Exam Narrative Exam Narrative: Vital signs reviewed. Patient is in mild to moderate distress, tripoding, tachycardic at a rate of 135 bpm. 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 Patient does show some conversational dyspnea. HEET: Head normocephalic atraumatic, TMs clear bilaterally. Posterior pharynx is clear, moist mucous membranes. Nares clear bilaterally. Neck: Supple with no lymphadenopathy or tenderness. No signs of meningismus. Cardiac: Tachycardic rate no murmurs gallops or rubs, equal peripheral pulses bilaterally. Respiratory: Expiratory wheezes to the left upper and mid lobe, minimal breath sounds to the right lobe. No chest tenderness. Abdomen: Soft, nontender, nondistended. No abdominal bruit or pulsatile masses. No hepatosplenomegaly Extremities: No peripheral edema, no signs of gross trauma or deformity. Active full range of motion of all extremities. Neuro: Cranial nerves II through XII intact, no focal neurological deficits. Skin: Clean dry and intact with no rash, purpura, petechiae, vesicles or pustules. Backs/flank: No CVA tenderness, no midline spinal tenderness, no deformity. Psych: Normal mood and affect. No SI, HI or acute psychosis. Const Vital Signs: 06/19/24 14:29 06/19/24 14:31 06/19/24 14:31 Temperature 97.6 F L 98.1 F Temperature Source Temporal Oral Pulse Rate 129 H 130 H Respiratory Rate 24 H 26 H Respiratory Effort Respiratory Depth Respiratory Pattern Blood Pressure 164/102 H 136/92 H Blood Pressure Mean 122 106 Pulse Ox 89 94 95 Oxygen Delivery Method Room Air Nasal Cannula Nasal Cannula Oxygen Flow Rate (L/min) 2 3 Fraction of Inspired Oxygen (FIO2) 06/19/24 14:31 06/19/24 14:55 06/19/24 15:10 Temperature Temperature Source Pulse Rate 129 H Respiratory Rate 30 H Respiratory Effort Short of Breath Accessory Muscle Use Pursed Lip Respiratory Depth Deep Respiratory Pattern Tachypnea Blood Pressure Blood Pressure Mean Pulse Ox Oxygen Delivery Method Nasal Cannula Nasal Cannula Oxygen Flow Rate (L/min) 3 3 Fraction of Inspired Oxygen (FIO2) 06/19/24 15:31 06/19/24 15:44 06/19/24 15:46 Temperature 98 F Temperature Source Temporal Pulse Rate 137 H 133 H 133 H Respiratory Rate 34 H 27 H 25 H Respiratory Effort Respiratory Depth Respiratory Pattern Blood Pressure 142/92 H 144/84 H Blood Pressure Mean 108 104 Pulse Ox 96 98 98 Oxygen Delivery Method Nasal Cannula Bi-pap Oxygen Flow Rate (L/min) 4 Fraction of Inspired Oxygen (FIO2) 30 <Dr. Phong Ribera MD - Last Filed: 06/19/24 16:16> Physical Exam Const Vital Signs: 06/19/24 14:29 06/19/24 14:31 06/19/24 14:31 Temperature 97.6 F L 98.1 F Temperature Source Temporal Oral Pulse Rate 129 H 130 H Respiratory Rate 24 H 26 H Respiratory Effort Respiratory Depth Respiratory Pattern Blood Pressure 164/102 H 136/92 H Blood Pressure Mean 122 106 Pulse Ox 89 94 95 Oxygen Delivery Method Room Air Nasal Cannula Nasal Cannula Oxygen Flow Rate (L/min) 2 3 Fraction of Inspired Oxygen (FIO2) 06/19/24 14:31 06/19/24 14:55 06/19/24 15:10 Temperature Temperature Source Pulse Rate 129 H Respiratory Rate 30 H Respiratory Effort Short of Breath Accessory Muscle Use Pursed Lip Respiratory Depth Deep Respiratory Pattern Tachypnea Blood Pressure Blood Pressure Mean Pulse Ox Oxygen Delivery Method Nasal Cannula Nasal Cannula Oxygen Flow Rate (L/min) 3 3 Fraction of Inspired Oxygen (FIO2) 06/19/24 15:31 06/19/24 15:44 06/19/24 15:46 Temperature 98 F Temperature Source Temporal Pulse Rate 137 H 133 H 133 H Respiratory Rate 34 H 27 H 25 H Respiratory Effort Respiratory Depth Respiratory Pattern Blood Pressure 142/92 H 144/84 H Blood Pressure Mean 108 104 Pulse Ox 96 98 98 Oxygen Delivery Method Nasal Cannula Bi-pap Oxygen Flow Rate (L/min) 4 Fraction of Inspired Oxygen (FIO2) 30 [facility] <MALU Rosales - Last Filed: 06/19/24 16:10> [facility] Lab Data Labs: Laboratory Results - last 24 hr 06/19/24 06/19/24 14:45 15:50 WBC 11.1 H RBC 5.01 Hgb 15.8 Hct 47.3 MCV 94.4 H MCH 31.5 MCHC 33.4 RDW Std Deviation 48.9 H RDW Coeff of Jennie 14.1 Plt Count 328 MPV 10.2 Immature Gran % (Auto) 0.700 Neut % (Auto) 89.5 H Lymph % (Auto) 3.4 L [place] % (Auto) 5.3 Eos % (Auto) 0.6 Baso % (Auto) 0.5 Absolute Neuts (auto) 9.9 H Absolute Lymphs (auto) 0.38 L Nucleated RBC % 0 Sodium 136 Potassium 4.3 Chloride 104 Carbon Dioxide 22.0 Anion Gap 9 BUN 14 Creatinine 0.84 Estim Creat Clear Calc 93.38 Est GFR (MDRD) Af Amer 117 Est GFR (MDRD) Non-Af 97 BUN/Creatinine Ratio 16.6 Glucose 103 Calcium 8.9 Troponin I High Sens 7 B-Natriuretic Peptide 58.6 ABG Data ABG results: ABG 06/19/24 15:27 Specimen Type CONY Sample Site Not entered O2 % 3.0 VBG pH 7.37 VBG pO2 36 VBG HCO3 22 VBG Total CO2 24 VBG O2 Sat (Calc) 68 VBG Base Excess -3 L POC Mix VBG pCO2 Pt Tmp 39.0 L O2 Delivery Device Not entered Radiography Diagnostic Testing: Clinical Impression(s) from Imaging Studies Chest X-Ray 06/19/24 15:03 IMPRESSION: 1. Slight increased airspace consolidation within the left upper lobe. Findings are nonspecific and may represent atelectasis or pneumonia. Correlation with laboratory values recommended. 2. Hyperlucency along the visualized diaphragm, compatible with interposed bowel loops seen on lateral radiograph from 2018. 3. Severe emphysema. Reading Location: [facility] Treatment and Re-Evaluation :: Differential diagnosis includes however is not limited to: Tension pneumothorax, hemothorax, spontaneous pneumothorax, COVID-19, influenza, RSV, COPD exacerbation, community-acquired pneumonia Patient appears to be in mild to moderate distress, patient is tachypneic, hypoxic, tripoding using sensory muscles. Patient will receive a full workup. Patient was placed on 4 L nasal cannula oxygen and is doing better with his pulse oxygenation 95. Patient had a single view portable chest x-ray immediately placed to rule out a pneumothorax. Patient was given IV steroids, breathing treatments. Patient need to be reevaluated. COVID-19, influenza, RSV swab will be ordered. All radiologic examinations were read, reviewed by the emergency department attending. From these reads, a plan of care will be put in place. Patient's laboratory values show slight leukocytosis with a white blood count 11.1, patient's chemistries were unremarkable, BNP was negative, troponin was negative. Patient's chest x-ray shows severe emphysema however no new consolidation, no pneumothorax. Patient was positive for influenza A. Secondary to the patient not responding well to breathing treatments, patient is still having tripoding, patient was placed on BiPAP. Patient's VBG was unremarkable. At this time, patient will need to be admitted to the hospital. I will reach out to hospitalist. <Dr. Phong Ribera MD - Last Filed: 06/19/24 16:16> [facility] Narrative Medical decision making narrative: I have personally performed a face to face assessment of the patient and have reviewed the EVELIA Note. I performed a substantive portion of the visit including all aspects of the following. My green findings include: History is remarkable for upper restaurant tract infectious symptoms that started yesterday. Patient presents because of significant shortness of breath. He does see a history of COPD. Is a former smoker. He quit 15 to 20 years ago. He does endorse mild congestion and rhinorrhea. His cough is productive. He has not looked at the sputum to tell me what it looks like. He complains of subjective fever. No ill contacts that he is aware of. No history of VTE. No leg pain, swelling discoloration. Exam is markable patient being hypertensive, tachycardic and resp distress with use of accessory muscles retractions decreased air movement especially on the left. He has high-pitched wheezing noted. Medical Decision Making x-ray was changed from 2 view to single view to rule out obvious pneumothorax. 1 was not noted. He does have an infiltrate potentially in the left upper lobe. Need to assess for pneumonia, pneumothorax, exacerbate COPD, viral infection exacerbating his COPD. Will treat with DuoNeb, albuterol and Solu-Medrol. If there is evidence of pneumonia will obtain blood cultures and start on antibiotics. VBG was obtained to assess acid-base status and rule out hypercapnia. Patient deteriorated. He is now on BiPAP. Other additions or changes: [None] Lab Data Attestation: I reviewed the patient's lab results. Lab results narrative: Basic metabolic panel is normal. Labs: Laboratory Results - last 24 hr 06/19/24 06/19/24 14:45 15:50 WBC 11.1 H RBC 5.01 Hgb 15.8 Hct 47.3 MCV 94.4 H MCH 31.5 MCHC 33.4 RDW Std Deviation 48.9 H RDW Coeff of Jennie 14.1 Plt Count 328 MPV 10.2 Immature Gran % (Auto) 0.700 Neut % (Auto) 89.5 H Lymph % (Auto) 3.4 L [place] % (Auto) 5.3 Eos % (Auto) 0.6 Baso % (Auto) 0.5 Absolute Neuts (auto) 9.9 H Absolute Lymphs (auto) 0.38 L Nucleated RBC % 0 Sodium 136 Potassium 4.3 Chloride 104 Carbon Dioxide 22.0 Anion Gap 9 BUN 14 Creatinine 0.84 Estim Creat Clear Calc 93.38 Est GFR (MDRD) Af Amer 117 Est GFR (MDRD) Non-Af 97 BUN/Creatinine Ratio 16.6 Glucose 103 Calcium 8.9 Troponin I High Sens 7 B-Natriuretic Peptide 58.6 ABG Data Attestation: I personally reviewed and interpreted this ABG as follows: Interpretation: VBG is unremarkable. There is no acid-base disturbance. CO2 is normal. Total CO2 is normal. And bicarb is normal. ABG results: ABG 06/19/24 15:27 Specimen Type CONY Sample Site Not entered O2 % 3.0 VBG pH 7.37 VBG pO2 36 VBG HCO3 22 VBG Total CO2 24 VBG O2 Sat (Calc) 68 VBG Base Excess -3 L POC Mix VBG pCO2 Pt Tmp 39.0 L O2 Delivery Device Not entered Radiography Chest X-Ray - ED: 1 View and Read by ED Physician (There is no evidence of pneumothorax. There is some increased markings left upper lobe near the inferior the left medial third. There are some chronic changes noted. Cardiac silhouette and size normal. There is no evidence of pneumothorax, hemothorax. There is no evidence of heart failure.) Diagnostic Testing: Clinical Impression(s) from Imaging Studies Chest X-Ray 06/19/24 15:03 IMPRESSION: 1. Slight increased airspace consolidation within the left upper lobe. Findings are nonspecific and may represent atelectasis or pneumonia. Correlation with laboratory values recommended. 2. Hyperlucency along the visualized diaphragm, compatible with interposed bowel loops seen on lateral radiograph from 2018. 3. Severe emphysema. Reading Location: [facility] EKG Initial EKG: Attestation: I personally reviewed and interpreted this EKG as follows: Interpretation: Sinus Tachycardia (Rate is 133. There is significant artifact due to his labored breathing. [place] interval is 142 ms. Cures duration 94 ms. QT duration 286 ms. [place] is to the right. He probably has cor pulmonale with dilated right and left atrium. There is slight decrease in anterior force. No obvious acute ische) Comments: There is a comparison April 15, 2018 the comparison film is not rotated. There is increased interstitial markings in my opinion in the same location left upper lobe. Suspect this is scarring. <Dr. Phong Ribera MD - Last Filed: 06/19/24 16:16> Critical Care Time Critical Care Time: Yes Critical care time (excluding procedures): 30-74 minutes (33), Including time spent: (History, physical, documentation, independent rotation laboratory results, chest x-ray, treatment for respiratory failure), Discussing w/Patient &/or Family/Computer Systems Design Analyst, Discussing w/Consultants (Dr. Wahl for admission to ICU), Arranging Admission or Transfer, Performing Direct Patient Care at Bedside and - (Updates from respiratory therapy) Discharge Plan Dx/Rx/DC Orders Clinical Impression: Acute hypoxemic respiratory failure, Chronic bronchitis, Influenza A, Asthma exacerbation in COPD, Acute bronchospasm, Sinus tachycardia by electrocardiography Disposition Disposition: Acute Care [facility]
--- NOTE | 2024-06-19 15:03 | RAD_ITS ---
PROCEDURE: CHEST 1 VIEW (PORTABLE) REASON FOR EXAM: 64-year-old male, cough, shortness of breath and congestion. History of COPD. TECHNIQUE: Frontal view of the chest. COMPARISON: Chest radiograph 04/15/2018. FINDINGS: The heart size is normal. Redemonstration of severe emphysema with bibasilar atelectasis. Grossly unchanged prominent pulmonary vascularity. Stable to slight increased atelectasis/airspace consolidation of the left upper lobe. No pleural effusion or pneumothorax. Degenerative changes are identified within the thoracic spine. Grossly unchanged hyperlucency along the visualized diaphragm, compatible with interposed bowel loops. RAD/Chest 1 View (Portable) IMPRESSION: 1. Slight increased airspace consolidation within the left upper lobe. Finding s are nonspecific and may represent atelectasis or pneumonia. Correlation with laboratory values recommended. 2. Hyperlucency along the visualized diaphragm, compatible with interposed konstantin l loops seen on lateral radiograph from 2018. 3. Severe emphysema. Reading Location: [id number]
[2024-06-19] MEDS: MethylPREDNISolone 125 MG/2 ML Vial 60 MG IV (15:05)
[2024-06-19] MEDS: Albuterol 2.5 MG/3 ML VIAL.NEB. 5 MG INHALATION (15:05)
[2024-06-19] MEDS: Ipratropium/Albuterol Sulfate 3 ML AMPUL.NEB INHALATION ×2 (15:06→23:14)
[2024-06-19] MEDS: 0.9% Normal Saline (1000mL) 1,000 ML 999 ML IV (15:08)
[2024-06-19 15:31] LABS: Blood Gas Specimen Type VEN; O2 Delivery Device Not entered; SITE Not entered; VBG BASE EXCESS -3 mmol/L (-1.0-3.5); VBG Bicarbonate 22 mmol/L (22-26); VBG PO2 36 mmHg (25-40); VBG SO2 68 % (50-70); VBG TCO2 24 mmol/L (23-33); VBG pH 7.37 (7.32-7.42)
[2024-06-19 15:40] LABS: Anion Gap 9 (5-15); BUN 14 mg/dL (7-18); BUN/Creat Ratio 16.6 RATIO (10-20); Calcium,Total 8.9 mg/dL (8.5-10.1); Chloride 104 mmol/L (98-107); Creatinine, Serum 0.84 mg/dL (0.70-1.30); EST Glomerular Filtration Rate 97 mL/min (>60); Est Glom Filt Rate - Afr Amer 117 mL/min (>60); Estimated Creatinine Clearance 93.38 ml/min; Glucose 103 mg/dL (74-106); Potassium 4.3 mmol/L (3.5-5.1); Sodium Level 136 mmol/L (136-145); Troponin-I HS 7 pg/mL (3.0-78.0)
[2024-06-19 15:46] LABS: BNP,B-Type NATRIURETIC PEPTIDE 58.6 pg/mL (0-100)
[2024-06-19 15:56] LABS: Absolute Lymphocyte Count 0.38 X10^3/uL (0.83-4.51); Absolute Neutrophil Count 9.9 X10^3/uL (2.0-7.7); Basophil# 0.06 X10^3/uL; Basophil% 0.5 % (0-1); Eosinophil# 0.07 X10^3/uL; Eosinophils% 0.6 % (0-5); Hematocrit 47.3 % (40-54); Hemoglobin 15.8 g/dL (13.0-16.5); Lymphocyte # 0.38 X10^3/ul (0.83-4.51); Lymphocyte % 3.4 % (19-41); Mean Corp Hgb Conc 33.4 g/dL (32-36); Mean Corpuscular Hgb 31.5 pg (27.0-32.0); Mean Corpuscular Volume 94.4 fL (80-94); Mean Platelet Vol. 10.2 fl (6.2-12.0); Monocyte# 0.59 X10^3/uL; Monocyte% 5.3 % (0-10); NRBC Flagged by Analyzer 0 % (0-5); Neutrophil # 9.88 X10^3/uL (2.7-7.7); Neutrophil % 89.5 % (47-70); POSITIVE DIFFERENTIAL YES; Platelet Count 328 K/mm3 (150-450); RBC Distribution Width CV 14.1 % (11.6-14.6); RBC Distribution Width SD 48.9 fl (35.1-43.9); Red Blood Count 5.01 M/mm3 (4.6-6.2); White Blood Count 11.1 K/mm3 (4.4-11.0)
--- NOTE | 2024-06-19 16:15 | PCM.HP.STD ---
HPI - General General Date of Admission: 06/19/24 Date of Service: 06/19/24 Chief Complaint: Shortness of breath HPI Narrative PABLO FRIAS, is a 64 M who presented to the emergency department at [facility] on 06/19/2024 with a chief complaint of shortness of breath. Patient has a remote history of tobacco abuse and quit 15 years ago but does have COPD. He is not oxygen dependent at baseline. He states over the last 2 days he developed a runny nose, cough and congestion with progressively worsening shortness of breath. He stated today his breathing really got worse and he was having tripoding at home. Sats were initially 88% on room air and he did appear tachypneic and conversationally dyspneic. He was placed on BiPAP in the emergency department. His indicated he was much worse than he had been 24 hours prior. He had no known sick contacts. He has not been vaccinated for influenza this year. Patient does state he is coughing up sputum that is more volume and thicker than typical. Vital signs on presentation showed temperature of 97.6, heart rate 129, respiratory rate 24, blood pressure was 164/102, pulse ox was 89% on room air and improved to 95% on 3 L nasal cannula however work of breathing progressively worse and he was placed on BiPAP. CBC showed a mild white count was 11.1 and he does have a left shift with an 89.5% neutrophilia. Chemistry panel was unremarkable. Troponin was normal at 7. BNP was 58.6. A VBG was initially obtained which showed a pH of 7.37. I did request an ABG which showed a pH of 7.35 with a pCO2 of 34.9 and a pO2 of 129. EKG was sinus tachycardia with no ST-T wave changes concerning for acute ischemia. Chest x-ray showed some airspace consolidation in left upper lobe and hyperlucency along the diaphragm with severe emphysematous changes. Influenza PCR was positive. He was given Solu-Medrol, aerosols, 1 dose of Tamiflu and placed on BiPAP. He will be admitted to intensive care unit as I am concerned about his potential decompensation. 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 Chronic bronchitis Cancer Back problem Home Medications ?Medication ?Instructions ?Recorded ?Last Taken ?Type albuterol sulfate 2.5 mg/3 mL 2.5 mg inhalation Q6H PRN PRN Sob 06/28/16 02/12/18 History (0.083 %) solution for nebulization &/Or Wheezing budesonide-formoterol HFA [address] 06/28/16 02/12/18 History mcg-4.5 mcg/actuation aerosol inhaler (Symbicort) ipratropium 20 mcg-albuterol 100 1 puff inhalation Q6H 03/19/21 Unknown History mcg/actuation mist for inhalation (Combivent Respimat) levothyroxine 200 mcg tablet 200 mcg PO .2 , 1.5 Wed #102 02/25/24 Unknown Rx tabs prednisone 5 mg tablet 15 mg PO DAILY 04/22/24 Unknown History budesonide 0.5 mg/2 mL suspension 0.5 mg inhalation BID 06/19/24 Unknown History for nebulization budesonide 160 mcg-glycopyr 9 2 inh inhalation BID 06/19/24 Unknown History mcg-formot 4.8 mcg/actuation HFA inhaler (Breztri Aerosphere) ipratropium 20 mcg-albuterol 100 1 puff inhalation Q4H sob 06/19/24 Unknown History mcg/actuation mist for inhalation (Combivent Respimat) Allergy/AdvReac Type Severity Reaction Status Date / Time Tetracyclines Allergy Rash Verified 06/19/24 14:31 Family History Other Respiratory disease Surgical History H/O thyroidectomy Social History Smoking Status: Former smoker alcohol intake: current alcohol intake frequency: a few times a week substance use type: does not use what type of physical activity do you participate in: none ROS Constitutional Constitutional: Reports chills, fatigue, malaise, weakness and other Details: Decreased appetite ; Denies anorexia, change in weight, fever(s) or night sweats Eyes Eyes: Denies blurry vision, change in eye color, change in vision, discharge from eye(s), double vision, erythema, eye pain, loss of vision or other ENT HEENT: Reports abnormal hearing, headache(s), hearing loss, nasal congestion and nasal discharge; Denies dysphagia, ear pain, epistaxis, post nasal drip, sinus pressure, sore throat or other Cardiovascular Cardiovascular: Reports dyspnea on exertion; Denies chest pain, claudication, edema, lightheadedness, orthopnea, palpitations, paroxysmal nocturnal dyspnea, rapid heart rate, syncope or other Respiratory/Chest Respiratory/Chest: Reports cough, dyspnea, excessive phlegm production, productive cough, shortness of breath at rest, shortness of breath with exertion and wheezing; Denies hemoptysis or other Gastrointestinal Gastrointestinal: Reports diarrhea; Denies abdominal pain, coffee ground emesis, constipation, dyspepsia, hematemesis, hematochezia, loose stools, melena, nausea, vomiting or other Genitourinary Genitourinary: Denies burning urination, difficulty urinating, dysuria, hematuria, nocturia, urinary frequency, urinary hesitancy, urinary incontinence, urinary urgency or other Musculoskeletal Musculoskeletal: Reports myalgias; Denies arthralgias, back pain, joint pain, joint stiffness, joint swelling, neck pain or other Neurologic Neurologic: Denies abnormal gait, abnormal speech, confusion, disequilibrium, dizziness, focal weakness, headache(s), numbness, paresthesias, seizure-like activity, seizures, syncope, tingling, tremor(s) or other Psychiatric Psychiatric: Denies anxiety, depression, homicidal ideation, suicidal ideation or other Endocrine Endocrinology: Denies change in body appearance, cold intolerance, excessive sweating, heat intolerance, polydipsia, polyuria or other Hematologic/Lymphatic Hematologic/Lymphatic: Denies anemia, easy bleeding, easy bruising, lymphadenopathy or other Allergic/Immunologic Allergic/Immunologic: Denies rhinitis, hives, eczemia, asthma or other Vital Signs Vital Signs Vital Signs: 06/19/24 14:29 06/19/24 14:31 06/19/24 14:31 Temperature 97.6 F L 98.1 F Temperature Source Temporal Oral Pulse Rate 129 H 130 H Respiratory Rate 24 H 26 H Respiratory Effort Respiratory Depth Respiratory Pattern Blood Pressure 164/102 H 136/92 H Blood Pressure Mean 122 106 Pulse Ox 89 94 95 Oxygen Delivery Method Room Air Nasal Cannula Nasal Cannula Oxygen Flow Rate (L/min) 2 3 Fraction of Inspired Oxygen (FIO2) 06/19/24 14:31 06/19/24 14:55 06/19/24 15:10 Temperature Temperature Source Pulse Rate 129 H Respiratory Rate 30 H Respiratory Effort Short of Breath Accessory Muscle Use Pursed Lip Respiratory Depth Deep Respiratory Pattern Tachypnea Blood Pressure Blood Pressure Mean Pulse Ox Oxygen Delivery Method Nasal Cannula Nasal Cannula Oxygen Flow Rate (L/min) 3 3 Fraction of Inspired Oxygen (FIO2) 06/19/24 15:31 06/19/24 15:44 06/19/24 15:46 Temperature 98 F Temperature Source Temporal Pulse Rate 137 H 133 H 133 H Respiratory Rate 34 H 27 H 25 H Respiratory Effort Respiratory Depth Respiratory Pattern Blood Pressure 142/92 H 144/84 H Blood Pressure Mean 108 104 Pulse Ox 96 98 98 Oxygen Delivery Method Nasal Cannula Bi-pap Oxygen Flow Rate (L/min) 4 Fraction of Inspired Oxygen (FIO2) 30 Weight Weight: 84.2 kg Body Mass Index (BMI) 25.9 Physical Exam Const alert, oriented x3, average body habitus and well nourished; Negative for healthy appearing Constitutional Narrative: Upper middle-aged, white male, sitting up in bed straight, on BiPAP, no signs of respiratory distress at this time however he does remain tachypneic, appears ill but not toxic General Appearance: cooperative HEENT normocephalic, head/scalp atraumatic and moist oral mucous membranes HEENT Narrative: Mild hearing loss, Mallampati 2-3, no thrush Eyes EOMs intact bilaterally and conjunctivae normal Eyes Narrative: No scleral icterus Neck no lymphadenopathy and supple Neck Narrative: Trachea midline, no thyroid enlargement Resp No normal respiratory effort, no retractions, no use of accessory muscles and No clear to auscultation bilaterally Resp Narrative: Scattered inspiratory and expiratory wheezes, crackles in the left upper lobe Auscultation: crackles and wheezes; Negative for rhonchi Cardio regular rhythm, S1 normal heart sound, S2 normal heart sound, no murmurs, no rub, no gallops and no clicks Cardio Narrative: Tachycardia GI normal to inspection, nondistended, normoactive bowel sounds, soft to palpation and non-tender Extremity no clubbing, cyanosis or edema Extremity Narrative: 2+ pedal pulses, 2+ radial pulses Skin skin turgor normal, no jaundice, no petechiae and no mottling Neuro oriented x3, moves all extremities and no focal motor deficits Neuro Narrative: Difficult to assess speech as patient is currently dependent on BiPAP Psych affect normal Psych Narrative: Currently feels calm, eye contact is good and patient interacts appropriately Results Lab / Micro Data 06/19/24 15:50 06/19/24 14:45 Labs: Laboratory Results - last 24 hr 06/19/24 14:45: Sodium 136, Potassium 4.3, Chloride 104, Carbon Dioxide 22.0, Anion Gap 9, BUN 14, Creatinine 0.84, Estim Creat Clear Calc 93.38, Est GFR (MDRD) Af Amer 117, Est GFR (MDRD) Non-Af 97, BUN/Creatinine Ratio 16.6, Glucose 103, Calcium 8.9, Troponin I High Sens 7, B-Natriuretic Peptide 58.6 06/19/24 15:50: WBC 11.1 H, RBC 5.01, Hgb 15.8, Hct 47.3, MCV 94.4 H, MCH 31.5, MCHC 33.4, RDW Std Deviation 48.9 H, RDW Coeff of Jennie 14.1, Plt Count 328, MPV 10.2, Immature Gran % (Auto) 0.700, Neut % (Auto) 89.5 H, Lymph % (Auto) 3.4 L, [place] % (Auto) 5.3, Eos % (Auto) 0.6, Baso % (Auto) 0.5, Absolute Neuts (auto) 9.9 H, Absolute Lymphs (auto) 0.38 L, Nucleated RBC % 0 Micro: Microbiology 06/19/24 15:00 Mucosa - Nose SARS-CoV-2, Influenza & RSV (PCR) - Final Influenzae A ABG Data ABG results: ABG 06/19/24 15:27 Specimen Type CONY Sample Site Not entered O2 % 3.0 VBG pH 7.37 VBG pO2 36 VBG HCO3 22 VBG Total CO2 24 VBG O2 Sat (Calc) 68 VBG Base Excess -3 L POC Mix VBG pCO2 Pt Tmp 39.0 L O2 Delivery Device Not entered Imaging Radiology Impression Chest X-Ray 06/19/24 15:03 IMPRESSION: 1. Slight increased airspace consolidation within the left upper lobe. Findings are nonspecific and may represent atelectasis or pneumonia. Correlation with laboratory values recommended. 2. Hyperlucency along the visualized diaphragm, compatible with interposed bowel loops seen on lateral radiograph from 2018. 3. Severe emphysema. Reading Location: [facility] Assessment & Plan Assessment/Plan (1) Sinus tachycardia by electrocardiography: (2) Asthma exacerbation in COPD: (3) Influenza A: (4) Acute hypoxemic respiratory failure: PLAN: Plan Acute hypoxic respiratory failure secondary to AECOPD with FluA/+- Bacterial PNA -Flu a positive -Chest x-ray shows possible left upper lobe infiltrate and patient has increased sputum production and change in sputum color and thickness -Tamiflu 75 mg p.o. twice daily x 5 days -Start Levaquin 750 mg IV daily x 7 days -Solu-Medrol 40 Q8 -Aggressive pulmonary toilet with scheduled and as needed nebulizers -Mucinex 1200 p.o. twice daily -As needed antitussives -Check sputum culture -Check strep pneumo and Legionella antigens -I-S and Acapella as able -Patient is not oxygen dependent at baseline but currently requiring BiPAP -Wean oxygen as able -Will need ambulatory pulse ox prior to discharge -Pulmonary/critical care medicine consultation Leukocytosis -Patient with left shift as well -With sputum change and history of COPD will start empiric antibiotics -Repeat CBC in a.m. Sinus tachycardia -Reactive from respiratory distress and utilization of steroids and aerosols -Monitor on telemetry -Should improve as he clinically improves COPD -Not oxygen dependent at baseline -Hold home inhalers -Treatment for exacerbation as noted above -Patient is on chronic prednisone--> hold while on Solu-Medrol and will likely need slow taper at discharge Hypothyroidism -Continue home levothyroxine 2 -Check TSH Thyroid malignancy status post thyroidectomy -Thyroid replacement therapy as noted above Chronic back pain -As needed Tylenol History of tobacco abuse -Quit about 15 years ago DVT prophylaxis -Subcu Lovenox CODE STATUS -Full code as verified on admission Sepsis Attestation Sepsis Alert: Yes Sepsis Attestation: Sepsis Ruled Out Charges/Coding Visit Charges Inpatient E&M: 65880 Init Hosp L2
[2024-06-19 16:30] LABS: Base Excess -6 mmol/L (-2 to +2); Bicarbonate 19.5 mmol/L (22-26); Blood Gas Specimen Type ART; Mode Not entered; O2 Delivery Device BiPAP; PEEP 6; PO2 129 mmHG (75-100); SITE L Radial; SO2 99 % (95-99); Total Carbon Dioxide 21 mmol/L; pCO2 34.9 mmHg (35-45); pH 7.35 (7.35-7.45)
[2024-06-19] MEDS: Oseltamivir Phosphate 75 MG Capsule PO ×2 (16:35→21:08)
--- NOTE | 2024-06-19 18:00 | PCMCONS.TICU ---
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 Chronic bronchitis Cancer Back problem Home Medications ?Medication ?Instructions ?Recorded ?Last Taken ?Type albuterol sulfate 2.5 mg/3 mL 2.5 mg inhalation Q6H PRN PRN Sob 06/28/16 02/12/18 History (0.083 %) solution for nebulization &/Or Wheezing budesonide-formoterol HFA [address] 06/28/16 02/12/18 History mcg-4.5 mcg/actuation aerosol inhaler (Symbicort) ipratropium 20 mcg-albuterol 100 1 puff inhalation Q6H 03/19/21 Unknown History mcg/actuation mist for inhalation (Combivent Respimat) levothyroxine 200 mcg tablet 200 mcg PO .2 , 1.5 Wed #102 02/25/24 Unknown Rx tabs prednisone 5 mg tablet 15 mg PO DAILY 04/22/24 Unknown History budesonide 0.5 mg/2 mL suspension 0.5 mg inhalation BID 06/19/24 Unknown History for nebulization budesonide 160 mcg-glycopyr 9 2 inh inhalation BID 06/19/24 Unknown History mcg-formot 4.8 mcg/actuation HFA inhaler (Breztri Aerosphere) ipratropium 20 mcg-albuterol 100 1 puff inhalation Q4H sob 06/19/24 Unknown History mcg/actuation mist for inhalation (Combivent Respimat) Allergy/AdvReac Type Severity Reaction Status Date / Time Tetracyclines Allergy Rash Verified 06/19/24 14:31 Family History Other Respiratory disease Surgical History H/O thyroidectomy Social History Smoking Status: Former smoker alcohol intake: current alcohol intake frequency: a few times a week substance use type: does not use what type of physical activity do you participate in: none Objective Data Objective Data Vital Signs: Vital Signs Last response Temperature 36.5 C L 06/19/24 17:30 Temperature Source Temporal 06/19/24 17:30 Pulse Rate 124 H 06/19/24 17:45 Respiratory Rate 18 06/19/24 17:45 Respiratory Effort Short of Breath, Accessory Muscle Use, Pursed Lip 06/19/24 14:31 Respiratory Depth Deep 06/19/24 14:31 Respiratory Pattern Tachypnea 06/19/24 14:31 Blood Pressure 110/87 H 06/19/24 17:45 Blood Pressure Mean 94 06/19/24 17:45 Blood Pressure Source Monitor 06/19/24 17:45 Blood Pressure Position Semi-Fowlers 06/19/24 17:45 Blood Pressure Location Left Arm 06/19/24 17:45 Pulse Ox 100 06/19/24 17:45 Oxygen Delivery Method Bi-pap 06/19/24 17:45 Oxygen Flow Rate (L/min) 4 06/19/24 15:31 Fraction of Inspired Oxygen (FIO2) 30 06/19/24 17:45 I&O: I&O Last 24 Hours 06/18/24 06/19/24 06/19/24 23:59 11:59 23:59 Intake Total 1000 / 1000 Balance 1000 / 1000 I&O: Total Stay 06/19/24 14:29 thru 06/19/24 16:54 Intake Total 1000 Balance 1000 Current Meds Ordered / Administered: Current meds ordered / Administered Generic Name Dose Route Start Last Admin Trade Name Freq PRN Reason Stop Dose Admin Acetaminophen 650 mg 06/19/24 16:53 Acetaminophen 325 Mg Tablet PO Q6H PRN PRN Pain 1-10 Or Fever>100.7 Albuterol Sulfate 2.5 mg 06/19/24 16:53 Albuterol 2.5 Mg/3 Ml Vial.Neb. INHALATION Q2H PRN PRN SHORTNESS OF BREATH Albuterol/Ipratropium 3 ml 06/19/24 16:53 Ipratropium/Albuterol Sulfate 3 Ml Ampul.Neb INHALATION Q4H.RT JW Enoxaparin Sodium 40 mg 06/20/24 10:00 Enoxaparin 40 Mg/0.4 Ml Syringe SC DAILY JW Guaifenesin 1,200 mg 06/19/24 22:00 Guaifenesin 1,200 Mg Tablet PO BID [facility] Levofloxacin 750 mg in 150 mls @ 100 mls/hr 06/19/24 16:53 Levaquin Iv IV 06/26/24 16:54 Q24 [facility] Ibuprofen 400 mg 06/19/24 16:53 Ibuprofen 400 Mg Tablet PO Q4H PRN PRN Pain 1-10 Or Fever >100.7 Melatonin 3 mg 06/19/24 16:53 Melatonin 3 Mg Tablet PO QHS PRN PRN INSOMNIA Methylprednisolone 40 mg 06/19/24 22:00 Methylprednisolone 40 Mg/Ml Vial IV Q8 [facility] Non-Formulary Medication 200 mcg 06/19/24 16:53 Levothyroxine PO .2 sund, 1.5 Wed [facility] Ondansetron HCl 4 mg 06/19/24 16:53 Ondansetron 4 Mg/2 Ml Vial IV Q8H PRN PRN NAUSEA/VOMITING Oseltamivir Phosphate 75 mg 06/19/24 22:00 Oseltamivir Phosphate 75 Mg Capsule PO 06/24/24 10:01 BID [facility] Senna/Docusate Sodium 2 tablet 06/19/24 16:53 Senna/Docusate Sodium 1 Tablet PO BID PRN PRN Constipation Sodium Chloride 10 - 40 ml 06/19/24 17:31 0.9% Saline Lock 10 Ml Syringe IV UD PRN SALINE FLUSH Throat Lozenges 1 lozenge 06/19/24 16:53 Benzocaine/Menthol 1 Lozenge MUCOUS MEM Q2H PRN PRN SORE THROAT Lab / Micro Data 06/19/24 15:50 06/19/24 14:45 Labs: Laboratory Results - last 24 hr 06/19/24 14:45: Sodium 136, Potassium 4.3, Chloride 104, Carbon Dioxide 22.0, Anion Gap 9, BUN 14, Creatinine 0.84, Estim Creat Clear Calc 93.38, Est GFR (MDRD) Af Amer 117, Est GFR (MDRD) Non-Af 97, BUN/Creatinine Ratio 16.6, Glucose 103, Calcium 8.9, Troponin I High Sens 7, B-Natriuretic Peptide 58.6 06/19/24 15:50: WBC 11.1 H, RBC 5.01, Hgb 15.8, Hct 47.3, MCV 94.4 H, MCH 31.5, MCHC 33.4, RDW Std Deviation 48.9 H, RDW Coeff of Jennie 14.1, Plt Count 328, MPV 10.2, Immature Gran % (Auto) 0.700, Neut % (Auto) 89.5 H, Lymph % (Auto) 3.4 L, [place] % (Auto) 5.3, Eos % (Auto) 0.6, Baso % (Auto) 0.5, Absolute Neuts (auto) 9.9 H, Absolute Lymphs (auto) 0.38 L, Nucleated RBC % 0 Micro: Microbiology 06/19/24 15:00 Mucosa - Nose SARS-CoV-2, Influenza & RSV (PCR) - Final Influenzae A ABG Data ABG results: ABG 06/19/24 06/19/24 15:27 16:24 Specimen Type CONY ART Sample Site Not entered L Radial pH 7.35 Bicarbonate Actual 19.5 L Total CO2 21 Base Excess -6 L O2 Saturation 99 O2 % 3.0 30.0 ABG pCO2 34.9 L ABG pO2 129 H VBG pH 7.37 VBG pO2 36 VBG HCO3 22 VBG Total CO2 24 VBG O2 Sat (Calc) 68 VBG Base Excess -3 L POC Mix VBG pCO2 Pt Tmp 39.0 L O2 Delivery Device Not entered BiPAP Vent Mode Not entered POC PEEP 6 Imaging Radiology Impression Chest X-Ray 06/19/24 15:03 IMPRESSION: 1. Slight increased airspace consolidation within the left upper lobe. Findings are nonspecific and may represent atelectasis or pneumonia. Correlation with laboratory values recommended. 2. Hyperlucency along the visualized diaphragm, compatible with interposed bowel loops seen on lateral radiograph from 2018. 3. Severe emphysema. Reading Location: [id number] Assessment and Plan . Assessment and plan: HPI 64 yo male former smoker w/ presumed COPD admitted 06/19/24 w/ dyspnea and wheezing. Noted tachycardia, hypoxemia, and respiratory distress in ED. He required supplemental O2 and NIV support. ABG reveals adequate ventilation. pCXR reveals hyperinflation. Influenza A PCR (+) He is currently in the ICU. HR remains elevated - looks like STach NIV support - RR around 20 BPM - SpO2 98% on FiO2 0.3. He appears comfortable currently. He is receiving steroids, inhaled BD, IV steroids, anti-virals EXAM GEN NAD VS as above HEENT NIV NECK supple COR RRR, tachy CHEST E>>I - no wheezing currently ABD soft EXT no edema SKIN w/d OTILIA NF IMP 1. Acute respiratory failure requiring NIV support 2. Likely AECOPD 3. Former tobacco use 4. Influenza infection PLAN -NIV support for now -supplemental O2 as needed -inhaled BD -IV steroids -Tamiflu -VTE ppx Critical Care Time: 60 min The entirety of this encounter was done via Telemedicine
[2024-06-19] MEDS: levoFLOXacin IV 750 MG/150 ML BAG 100 MG IV (18:09)
[2024-06-19] MEDS: guaiFENesin 1,200 MG Tablet 1200 MG PO (21:08)
[2024-06-20] VITALS (23 sets, daily range): BP systolic 107–144; BP diastolic 69–109; PULSE 93–126; RESP 12–25; TEMP 36.5–36.9; O2SAT 94–100; BMI 26.3
--- NOTE | 2024-06-20 00:34 | CPS ---
Patient very anxious and worked up after breathing treatment given at 23:15. Patient feels as though breathing treatment made him worse. Now complaining that he cannot breathe. PAP pressure increased to AVAPS settings. Patient stated that he felt a bit better with higher pressures. RN aware.
--- NOTE | 2024-06-20 00:38 | CPS ---
Attempted break from bipap at 19:25 per patient request. Patient 97% on 2L RR 18 at this time. Patient requesting to go back on bipap after being off for about 10 minutes. Patient became anxious and worked up soon after having bipap off.
--- NOTE | 2024-06-20 00:47 | NURSING ---
Patient's BiPAP alarming patient disconnect. Patient holding mask to face and asked staff to fix his mask. When attempting to adjust the mask straps, patient pushed staff hands away and attempted to hold mask up to this nurse's face and shouted fix it, can't you feel that? Attempted to calm patient, educating him that it is necessary to keep the high pressure going through his mask in order to open his lungs. Patient waving hands at nurse, refusing eye contact, and stated that RT needs to come fix it now.
[2024-06-20] MEDS: Ondansetron 4 MG/2 ML Vial IV (04:26)
--- NOTE | 2024-06-20 04:31 | CPS ---
Patient requesting PAP pressures decreased. Patient now back on initial PAP settings of 16/6 and 30%. Patient less tachypneic and anxiety better at this time.
[2024-06-20] MEDS: LORazepam 2 MG/ML Syringe 0.5 MG IV (06:05)
[2024-06-20 06:13] LABS: Absolute Lymphocyte Count 0.39 X10^3/uL (0.83-4.51); Absolute Neutrophil Count 7.2 X10^3/uL (2.0-7.7); Basophil# 0.01 X10^3/uL; Basophil% 0.1 % (0-1); Hematocrit 46.2 % (40-54); Hemoglobin 15.2 g/dL (13.0-16.5); Lymphocyte # 0.39 X10^3/ul (0.83-4.51); Lymphocyte % 4.4 % (19-41); Mean Corp Hgb Conc 32.9 g/dL (32-36); Mean Corpuscular Hgb 30.8 pg (27.0-32.0); Mean Corpuscular Volume 93.5 fL (80-94); Mean Platelet Vol. 10.3 fl (6.2-12.0); Monocyte# 1.24 X10^3/uL; Monocyte% 13.9 % (0-10); NRBC Flagged by Analyzer 0 % (0-5); Neutrophil # 7.21 X10^3/uL (2.7-7.7); Neutrophil % 81.2 % (47-70); POSITIVE DIFFERENTIAL YES; Platelet Count 341 K/mm3 (150-450); RBC Distribution Width CV 14.1 % (11.6-14.6); RBC Distribution Width SD 48.7 fl (35.1-43.9); Red Blood Count 4.94 M/mm3 (4.6-6.2); White Blood Count 8.9 K/mm3 (4.4-11.0)
[2024-06-20 06:51] LABS: ALB/GLOB Ratio 0.8 RATIO (0.9-2.4); AST(SGOT) 38 U/L (15-37); Alanine Aminotransfer ALT/SGPT 50 U/L (16-61); Albumin, Serum 3.2 g/dL (3.2-5.0); Alkaline Phosphatase 63 U/L (45-117); Anion Gap 11 (5-15); BUN 20 mg/dL (7-18); BUN/Creat Ratio 22.5 RATIO (10-20); Calcium,Total 8.4 mg/dL (8.5-10.1); Chloride 103 mmol/L (98-107); Creatinine, Serum 0.89 mg/dL (0.70-1.30); EST Glomerular Filtration Rate 91 mL/min (>60); Est Glom Filt Rate - Afr Amer 111 mL/min (>60); Estimated Creatinine Clearance 85.44 ml/min; Globulin 3.8 g/dL (2.2-4.2); Glucose 132 mg/dL (74-106); Magnesium 2.6 mg/dL (1.6-2.6); Phosphorus 4.7 mg/dL (2.5-4.9); Potassium 4.5 mmol/L (3.5-5.1); Sodium Level 136 mmol/L (136-145)
--- NOTE | 2024-06-20 07:22 | PCM.PN.INT ---
Assessment & Plan Assessment/Plan (1) Acute hypoxemic respiratory failure: (2) COPD (chronic obstructive pulmonary disease): PLAN: Plan RECOMMENDATIONS: 1. Supplemental oxygen to maintain saturations at or above 90%. 2. Recommend empiric PAP therapy with naps and nightly. 3. Continue Tamiflu to complete treatment course. 4. Continue Levaquin to complete 7 days of therapy. 5. Continue scheduled bronchodilators and steroids. 6. Encourage incentive spirometer use and mobilize patient as tolerated. 7. The patient is medically stable for transfer out of the intensive care unit. IMPRESSIONS: 1. COPD exacerbation with hypoxemia secondary to influenza A infection +/- bacterial pneumonia The patient has a reported history of COPD of unknown severity. His inhaler regimen has been medically managed by his PCP on an outpatient basis. He does not currently follow with a maths tutor. The patient presented with an exacerbation of his COPD related to influenza A with the possibility of secondary bacterial pneumonia. He was initially medically managed with BiPAP but has since been transition to nasal cannula oxygen. Recommend continuing current supportive care including Tamiflu, scheduled bronchodilators and steroids. Continue to wean supplemental oxygen to maintain saturations at or above 90%. Encourage incentive spirometer use and mobilize patient as tolerated. Continue Levaquin to complete 7 days of therapy. 2. History of hypothyroidism/chronic back pain/prior tobacco dependency Complicates care, management, recovery and prognosis. Continue home medications as indicated. This note was generated with [employer] dictation software. It may contain incorrect words, spelling, and punctuation that were not noted in checking the note before signing. Subjective Subjective The patient was seen and examined at the bedside this morning. Events from the last 24 hours have been reviewed. The patient was maintained on BiPAP overnight with an FiO2 requirement of 30%. He was able to be successfully weaned to nasal cannula oxygen this morning at 3 L/min. The patient does report ongoing shortness of breath, but stated that he does not currently follow with a maths tutor. According to the patient, his PCP has been managing his outpatient inhaler regimen. White blood cell count is normal. Hemoglobin and platelet count are stable. Chemistry profile was unremarkable. Objective Data Objective Data The patient's most recent lab work, culture data and imaging studies have all been personally reviewed. Influenza A PCR was positive on June 19. Vital Signs: Vital Signs Temp Pulse Resp BP Pulse Ox O2 Del Method O2 Flow Rate 98.0 F 112 H 17 127/98 H 100 Bi-pap 2 06/20/24 00:00 06/20/24 07:00 06/20/24 07:00 06/20/24 07:00 06/20/24 07:00 06/20/24 07:00 06/19/24 19:35 FiO2 30 06/20/24 07:00 Oxygen Flow Rate (L/min) 2 Oxygen Delivery Method Bi-pap Weight: 183 lb 6.793 oz Body Mass Index (BMI) 26.3 Intake & Output: Intake and Output for Last 24 Hours 06/18/24 06/19/24 06/20/24 23:59 23:59 23:59 Intake Total 1150 / 1150 Output Total 400 / 400 Balance 1150 / 1150 -400 / -400 Lab / Micro Data Attestation: I reviewed the patient's lab results. 06/20/24 05:57 06/20/24 05:57 Labs: Laboratory Results - last 24 hr 06/19/24 14:45: Sodium 136, Potassium 4.3, Chloride 104, Carbon Dioxide 22.0, Anion Gap 9, BUN 14, Creatinine 0.84, Estim Creat Clear Calc 93.38, Est GFR (MDRD) Af Amer 117, Est GFR (MDRD) Non-Af 97, BUN/Creatinine Ratio 16.6, Glucose 103, Calcium 8.9, Troponin I High Sens 7, B-Natriuretic Peptide 58.6 06/19/24 15:50: WBC 11.1 H, RBC 5.01, Hgb 15.8, Hct 47.3, MCV 94.4 H, MCH 31.5, MCHC 33.4, RDW Std Deviation 48.9 H, RDW Coeff of Jennie 14.1, Plt Count 328, MPV 10.2, Immature Gran % (Auto) 0.700, Neut % (Auto) 89.5 H, Lymph % (Auto) 3.4 L, [place] % (Auto) 5.3, Eos % (Auto) 0.6, Baso % (Auto) 0.5, Absolute Neuts (auto) 9.9 H, Absolute Lymphs (auto) 0.38 L, Nucleated RBC % 0 06/20/24 05:57: WBC 8.9, RBC 4.94, Hgb 15.2, Hct 46.2, MCV 93.5, MCH 30.8, MCHC 32.9, RDW Std Deviation 48.7 H, RDW Coeff of Jennie 14.1, Plt Count 341, MPV 10.3, Immature Gran % (Auto) 0.400, Neut % (Auto) 81.2 H, Lymph % (Auto) 4.4 L, [place] % (Auto) 13.9 H, Eos % (Auto) 0.0, Baso % (Auto) 0.1, Absolute Neuts (auto) 7.2, Absolute Lymphs (auto) 0.39 L, Nucleated RBC % 0, Sodium 136, Potassium 4.5, Chloride 103, Carbon Dioxide 22.0, Anion Gap 11, BUN 20 H, Creatinine 0.89, Estim Creat Clear Calc 85.44, Est GFR (MDRD) Af Amer 111, Est GFR (MDRD) Non-Af 91, BUN/Creatinine Ratio 22.5 H, Glucose 132 H, Calcium 8.4 L, Phosphorus 4.7, Magnesium 2.6, Total Bilirubin 0.30, AST 38 H, ALT 50, Alkaline Phosphatase 63, Total Protein 7.0, Albumin 3.2, Globulin 3.8, Albumin/Globulin Ratio 0.8 L, TSH 1.640 Micro: Microbiology 06/19/24 15:00 Mucosa - Nose SARS-CoV-2, Influenza & RSV (PCR) - Final Influenzae A ABG Data ABG results: ABG 06/19/24 06/19/24 15:27 16:24 Specimen Type CONY ART Sample Site Not entered L Radial pH 7.35 Bicarbonate Actual 19.5 L Total CO2 21 Base Excess -6 L O2 Saturation 99 O2 % 3.0 30.0 ABG pCO2 34.9 L ABG pO2 129 H VBG pH 7.37 VBG pO2 36 VBG HCO3 22 VBG Total CO2 24 VBG O2 Sat (Calc) 68 VBG Base Excess -3 L POC Mix VBG pCO2 Pt Tmp 39.0 L O2 Delivery Device Not entered BiPAP Vent Mode Not entered POC PEEP 6 Radiography Diagnostic Testing: Radiology Impression Chest X-Ray 06/19/24 15:03 IMPRESSION: 1. Slight increased airspace consolidation within the left upper lobe. Findings are nonspecific and may represent atelectasis or pneumonia. Correlation with laboratory values recommended. 2. Hyperlucency along the visualized diaphragm, compatible with interposed bowel loops seen on lateral radiograph from 2018. 3. Severe emphysema. Reading Location: [facility] Physical Exam Const alert, oriented x3 and no apparent distress General Appearance: cooperative HEENT normocephalic and head/scalp atraumatic Eyes PERRL, EOMs intact bilaterally and conjunctivae normal Neck supple General: trachea midline Chest inspection of chest normal Resp normal respiratory effort Auscultation: wheezes and diminished lung sounds Cardio regular rate and regular rhythm GI normal to inspection, nondistended, normoactive bowel sounds Extremity no clubbing, cyanosis or edema Skin no rashes or lesions noted Neuro CN's II-XII intact bilaterally, moves all extremities and no focal motor deficits Psych cooperative and affect normal Charges/Coding Visit Charges Inpatient E&M: 80620 Subs Hosp L2
[2024-06-20] MEDS: Levothyroxine 100 MCG Tablet 200 MCG PO (08:28)
[2024-06-20] MEDS: Enoxaparin 40 MG/0.4 ML Syringe SC (08:29)
[2024-06-20] MEDS: Oseltamivir Phosphate 75 MG Capsule PO ×2 (08:29→21:22)
[2024-06-20] MEDS: guaiFENesin 1,200 MG Tablet 1200 MG PO ×2 (08:29→21:22)
--- NOTE | 2024-06-20 08:47 | PN.HOSP_ITS ---
Subjective Subjective Currently on BiPAP Objective Data Objective Data Vital Signs: Vital Signs Temp Pulse Resp BP Pulse Ox O2 Del Method O2 Flow Rate 98.0 F 119 H 23 H 127/98 H 95 Nasal Cannula 3 06/20/24 00:00 06/20/24 08:14 06/20/24 08:14 06/20/24 07:00 06/20/24 08:18 06/20/24 08:18 06/20/24 08:18 FiO2 30 06/20/24 07:00 Oxygen Flow Rate (L/min) 3 Oxygen Delivery Method Nasal Cannula Weight: 183 lb 6.793 oz Body Mass Index (BMI) 26.3 Intake & Output: Intake and Output for Last 24 Hours 06/19/24 06/20/24 06/21/24 03:59 03:59 03:59 Intake Total 1150 / 1150 Output Total 400 / 400 Balance 1150 / 1150 -400 / -400 Lab / Micro Data 06/20/24 05:57 06/20/24 05:57 Labs: Laboratory Results - last 24 hr 06/19/24 14:45: Sodium 136, Potassium 4.3, Chloride 104, Carbon Dioxide 22.0, Anion Gap 9, BUN 14, Creatinine 0.84, Estim Creat Clear Calc 93.38, Est GFR (MDRD) Af Amer 117, Est GFR (MDRD) Non-Af 97, BUN/Creatinine Ratio 16.6, Glucose 103, Calcium 8.9, Troponin I High Sens 7, B-Natriuretic Peptide 58.6 06/19/24 15:50: WBC 11.1 H, RBC 5.01, Hgb 15.8, Hct 47.3, MCV 94.4 H, MCH 31.5, MCHC 33.4, RDW Std Deviation 48.9 H, RDW Coeff of Jennie 14.1, Plt Count 328, MPV 10.2, Immature Gran % (Auto) 0.700, Neut % (Auto) 89.5 H, Lymph % (Auto) 3.4 L, [place] % (Auto) 5.3, Eos % (Auto) 0.6, Baso % (Auto) 0.5, Absolute Neuts (auto) 9.9 H, Absolute Lymphs (auto) 0.38 L, Nucleated RBC % 0 06/20/24 05:57: WBC 8.9, RBC 4.94, Hgb 15.2, Hct 46.2, MCV 93.5, MCH 30.8, MCHC 32.9, RDW Std Deviation 48.7 H, RDW Coeff of Jennie 14.1, Plt Count 341, MPV 10.3, Immature Gran % (Auto) 0.400, Neut % (Auto) 81.2 H, Lymph % (Auto) 4.4 L, [place] % (Auto) 13.9 H, Eos % (Auto) 0.0, Baso % (Auto) 0.1, Absolute Neuts (auto) 7.2, A bsolute Lymphs (auto) 0.39 L, Nucleated RBC % 0, Sodium 136, Potassium 4.5, Chloride 103, Carbon Dioxide 22.0, Anion Gap 11, BUN 20 H, Creatinine 0.89, Estim Creat Clear Calc 85.44, Est GFR (MDRD) Af Amer 111, Est GFR (MDRD) Non-Af 91, BUN/Creatinine Ratio 22.5 H, Glucose 132 H, Calcium 8.4 L, Phosphorus 4.7, Magnesium 2.6, Total Bilirubin 0.30, AST 38 H, ALT 50, Alkaline Phosphatase 63, Total Protein 7.0, Albumin 3.2, Globulin 3.8, Albumin/Globulin Ratio 0.8 L, TSH 1.640 Micro: Microbiology 06/19/24 15:00 Mucosa - Nose SARS-CoV-2, Influenza & RSV (PCR) - Final Influenzae A ABG Data ABG results: ABG 06/19/24 06/19/24 15:27 16:24 Specimen Type CONY ART Sample Site Not entered L Radial pH 7.35 Bicarbonate Actual 19.5 L Total CO2 21 Base Excess -6 L O2 Saturation 99 O2 % 3.0 30.0 ABG pCO2 34.9 L ABG pO2 129 H VBG pH 7.37 VBG pO2 36 VBG HCO3 22 VBG Total CO2 24 VBG O2 Sat (Calc) 68 VBG Base Excess -3 L POC Mix VBG pCO2 Pt Tmp 39.0 L O2 Delivery Device Not entered BiPAP Vent Mode Not entered POC PEEP 6 Radiography Diagnostic Testing: Radiology Impression Chest X-Ray 06/19/24 15:03 IMPRESSION: 1. Slight increased airspace consolidation within the left upper lobe. Findings are nonspecific and may represent atelectasis or pneumonia. Correlation with laboratory values recommended. 2. Hyperlucency along the visualized diaphragm, compatible with interposed bowel loops seen on lateral radiograph from 2018. 3. Severe emphysema. Reading Location: [facility] Physical Exam Narrative General: Alert, Oriented x3, Cooperative, No apparent distress HEENT: Atraumatic, PERRLA, EOMI, Normocephalic, hard of hearing Oral: Moist Mucosa Neck: Supple, No JVD Lungs: Diminished, Normal air movement, No rhonchi, wheeze, No rales Cardiovascular: Regular rate, Regular Rhythm, Normal S1, Normal S2, No murmurs Abdomen: Soft, Non Tender, Non-Distended, No Hepato-splenomegaly Extremities: No edema, Capillary Refill Less than 3 Seconds Skin: No rashes, No breakdown Musculoskeletal: No Tenderness to Palpation of Joints or Extremities Neurological: No focal neurological deficits, Motor Exam 5/5 strength throughout, Sensory exam intact to light touch and pain Psych/Mental Status: Flat Assessment & Plan Assessment/Plan (1) Sinus tachycardia by electrocardiography: (2) Asthma exacerbation in COPD: (3) Influenza A: (4) Acute hypoxemic respiratory failure: PLAN: Plan 1. Acute hypoxic respiratory failure secondary to COPD exacerbation precipitated by fluid with possible bacterial pneumonia ? Continue with steroids ? Currently on Tamiflu ? Continue with Levaquin ? Continue with steroids ? Continue with nebulizers ? Sputum cultures pending 2. Hypothyroidism ? Continue with Synthroid ? TSH normal ? 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
[2024-06-20] MEDS: Morphine 2 MG/ML Syringe IV ×3 (08:55→21:38)
[2024-06-20] MEDS: 0.9% Saline Lock 10 ML Syringe IV ×4 (08:55→21:38)
[2024-06-20] MEDS: levoFLOXacin IV 750 MG/150 ML BAG 100 MG IV (09:57)
[2024-06-20] MEDS: Ipratropium/Albuterol Sulfate 3 ML AMPUL.NEB INHALATION ×4 (10:10→23:56)
[2024-06-20] MEDS: Mag /Aluminum/Simeth WCH UDC 30 ML ORAL.SUSP PO ×3 (10:15→21:22)
[2024-06-20] MEDS: BENZOCAINE/MENTHOL 1 LOZENGE MUCOUS MEM (10:15)
--- NOTE | 2024-06-20 11:32 | CASEMGMT ---
KRYSTLE ZAPATA Assessment Face to Face with patient for initial transition planning/care coordination assessment. KRYSTLE ZAPATA introduced self and role at [facility], pt voices understanding. Pt is A&Ox4 and is resting comfortably in bed and is calm. Care providers, pharmacy, and demographics verified. Admitting dx: Acute Hypoxic RF, Acute Exacerbation of COPD LACE Strata: 2 PCP: Lexx Smith Specialists: (Endocrinology). Pt states that he does not see a Field Laborer. Provider list given to the pt at this time. Pt states that he can get himself established Preferred Pharmacy: [facility] Insurance: [facility] A/B, [employer] Prescription Benefit: Yes LNOK: Nikki (W) Living Arrangements: Pt lives with his in a 2 story home with one step to enter ADLs/IADLs: Ind Transportation: Self, DME: Inhaler, nebulizer, pulse ox. Pt has access to a cane and FWW but does not use. Pt is currently requiring additional oxygen and may qualify for home oxygen use. A verbal list of local in-network DME companies were provided to the pt at this time. Pt prefers [facility] HHC/SNF: Denies history or needs Pt?s goal: Home Plan: Home, follow for oxygen needs. Pt denies the need for HH, OP Tx, or CCN. Pt states that he is independent and that he feels safe returning home with his once he is medically ready. PT is ordered and pending. CM to follow. Pt denies further questions or concerns at this time. Jasper Baum RN, CM
[2024-06-20] MEDS: 0.9% Normal Saline (100mL Bag) 100 ML 15 ML IV (13:18)
--- NOTE | 2024-06-21 01:23 | CPS ---
Patient stated he felt well enough to not wear the BIPAP for HS use
[2024-06-21 03:00] VITALS: BP 97/56; PULSE 97; RESP 14; TEMP 36.6; O2SAT 97
[2024-06-21] MEDS: Ipratropium/Albuterol Sulfate 3 ML AMPUL.NEB INHALATION ×2 (03:37→07:13)
[2024-06-21 03:38] VITALS: PULSE 90; RESP 16
[2024-06-21 04:36] LABS: Absolute Lymphocyte Count 0.38 X10^3/uL (0.83-4.51); Absolute Neutrophil Count 5.8 X10^3/uL (2.0-7.7); Hematocrit 43.5 % (40-54); Hemoglobin 14.4 g/dL (13.0-16.5); Lymphocyte # 0.38 X10^3/ul (0.83-4.51); Lymphocyte % 5.4 % (19-41); Mean Corp Hgb Conc 33.1 g/dL (32-36); Mean Corpuscular Hgb 31.2 pg (27.0-32.0); Mean Corpuscular Volume 94.2 fL (80-94); Mean Platelet Vol. 10.5 fl (6.2-12.0); Monocyte# 0.83 X10^3/uL; Monocyte% 11.9 % (0-10); NRBC Flagged by Analyzer 0 % (0-5); Neutrophil # 5.76 X10^3/uL (2.7-7.7); Neutrophil % 82.3 % (47-70); POSITIVE DIFFERENTIAL YES; Platelet Count 298 K/mm3 (150-450); RBC Distribution Width SD 48.6 fl (35.1-43.9); Red Blood Count 4.62 M/mm3 (4.6-6.2)
[2024-06-21 04:57] LABS: Anion Gap 6 (5-15); BUN 24 mg/dL (7-18); BUN/Creat Ratio 29.5 RATIO (10-20); Calcium,Total 8.1 mg/dL (8.5-10.1); Chloride 103 mmol/L (98-107); Creatinine, Serum 0.81 mg/dL (0.70-1.30); EST Glomerular Filtration Rate 101 mL/min (>60); Est Glom Filt Rate - Afr Amer 122 mL/min (>60); Estimated Creatinine Clearance 93.88 ml/min; Glucose 134 mg/dL (74-106); Potassium 4.6 mmol/L (3.5-5.1); Sodium Level 136 mmol/L (136-145)
[2024-06-21 05:47] VITALS: BMI 25.9
[2024-06-21] MEDS: Levothyroxine 100 MCG Tablet 200 MCG PO (06:23)
[2024-06-21 07:13] VITALS: PULSE 89; RESP 16; O2SAT 100
[2024-06-21] MEDS: Furosemide 20 MG/2 ML VIAL IV (08:00)
[2024-06-21] MEDS: levoFLOXacin IV 750 MG/150 ML BAG 100 MG IV (08:59)
[2024-06-21] MEDS: Enoxaparin 40 MG/0.4 ML Syringe SC (08:59)
[2024-06-21 09:00] VITALS: BP 121/88; PULSE 99; RESP 17; TEMP 36.6; O2SAT 93
[2024-06-21] MEDS: BENZOCAINE/MENTHOL 1 LOZENGE MUCOUS MEM ×2 (09:00→15:17)
[2024-06-21] MEDS: Oseltamivir Phosphate 75 MG Capsule PO (09:00)
[2024-06-21] MEDS: guaiFENesin 1,200 MG Tablet 1200 MG PO (09:00)
--- NOTE | 2024-06-21 09:45 | PN.CC_ITS ---
Assessment & Plan Assessment/Plan (1) Acute hypoxemic respiratory failure: (2) COPD (chronic obstructive pulmonary disease): PLAN: Plan RECOMMENDATIONS: 1. Supplemental oxygen to maintain saturations at or above 90%. 2. Recommend empiric PAP therapy with naps and nightly. 3. Continue Tamiflu to complete treatment course. 4. Continue Levaquin to complete 7 days of therapy. 5. Continue scheduled bronchodilators and steroids. 6. Encourage incentive spirometer use and mobilize patient as tolerated. 7. Perform walking oximetry study prior to consideration for discharge home. 8. Will sign off at this time from a pulmonary perspective. Please call with any additional questions. IMPRESSIONS: 1. COPD exacerbation with hypoxemia secondary to influenza A infection +/- bacterial pneumonia The patient has a reported history of COPD of unknown severity. His inhaler regimen has been medically managed by his PCP on an outpatient basis. He does not currently follow with a cutting machine tender decorative. The patient presented with an exacerbation of his COPD related to influenza A with the possibility of secondary bacterial pneumonia. He was initially medically managed with BiPAP but has since been transitioned to nasal cannula oxygen. Recommend continuing current supportive care including Tamiflu, scheduled bronchodilators and steroids. Continue to wean supplemental oxygen to maintain saturations at or above 90%. Encourage incentive spirometer use and mobilize patient as tolerated. Continue Levaquin to complete 7 days of therapy. 2. History of hypothyroidism/chronic back pain/prior tobacco dependency Complicates care, management, recovery and prognosis. Continue home medications as indicated. This note was generated with [employer] dictation software. It may contain incorrect words, spelling, and punctuation that were not noted in checking the note before signing. Subjective Subjective The patient was seen and examined at the bedside this morning. Events from the last 24 hours have been reviewed. The patient is currently afebrile, hemodynamically stable and maintaining appropriate oxygen saturations on 2 L/min at rest. He does seem rather anxious to be discharged home. However, he does report ongoing exertional shortness of breath. White blood cell count is normal. Chemistry profile was unremarkable. Objective Data Objective Data The patient's most recent lab work, culture data and imaging studies have all been personally reviewed. Influenza A PCR was positive on June 19. Vital Signs: Vital Signs Temp Pulse Resp BP Pulse Ox O2 Del Method O2 Flow Rate 97.9 F 89 16 97/56 L 100 Nasal Cannula 2 06/21/24 03:00 06/21/24 07:13 06/21/24 07:13 06/21/24 03:00 06/21/24 07:13 06/21/24 07:13 06/21/24 07:13 FiO2 30 06/20/24 07:00 Oxygen Flow Rate (L/min) 2 Oxygen Delivery Method Nasal Cannula Weight: 181 lb 3.52 oz Body Mass Index (BMI) 25.9 Intake & Output: Intake and Output for Last 24 Hours 06/19/24 06/20/24 06/21/24 23:59 23:59 23:59 Intake Total 1150 / 1150 1219 / 1219 Output Total 400 / 400 300 / 300 Balance 1150 / 1150 819 / 819 -300 / -300 Lab / Micro Data Attestation: I reviewed the patient's lab results. 06/21/24 03:35 06/21/24 03:35 Labs: Laboratory Results - last 24 hr 06/21/24 03:35: WBC 7.0, RBC 4.62, Hgb 14.4, Hct 43.5, MCV 94.2 H, MCH 31.2, MCHC 33.1, RDW Std Deviation 48.6 H, RDW Coeff of Jennie 14.0, Plt Count 298, MPV 10.5, Immature Gran % (Auto) 0.400, Neut % (Auto) 82.3 H, Lymph % (Auto) 5.4 L, [place] % (Auto) 11.9 H, Eos % (Auto) 0.0, Baso % (Auto) 0.0, Absolute Neuts (auto) 5.8, Absolute Lymphs (auto) 0.38 L, Nucleated RBC % 0, Sodium 136, Potassium 4.6, Chloride 103, Carbon Dioxide 27.0, Anion Gap 6, BUN 24 H, Creatinine 0.81, Estim Creat Clear Calc 93.88, Est GFR (MDRD) Af Amer 122, Est GFR (MDRD) Non-Af 101, BUN/Creatinine Ratio 29.5 H, Glucose 134 H, Calcium 8.1 L Micro: Microbiology 06/19/24 18:15 Sputum, Expectorated/Coughed Gram Stain - Final 06/19/24 18:15 Sputum, Expectorated/Coughed Respiratory Culture - Preliminary Appears to be normal respiratory geeta. Further studies to follow. 06/20/24 05:40 Urine, Clean Catch Legionella Antigen - Final 06/20/24 05:40 Urine, Clean Catch Streptococcus pneumoniae Antigen (M - Final 06/19/24 15:00 Mucosa - Nose SARS-CoV-2, Influenza & RSV (PCR) - Final Influenzae A ABG Data ABG results: ABG 06/19/24 06/19/24 15:27 16:24 Specimen Type CONY ART Sample Site Not entered L Radial pH 7.35 Bicarbonate Actual 19.5 L Total CO2 21 Base Excess -6 L O2 Saturation 99 O2 % 3.0 30.0 ABG pCO2 34.9 L ABG pO2 129 H VBG pH 7.37 VBG pO2 36 VBG HCO3 22 VBG Total CO2 24 VBG O2 Sat (Calc) 68 VBG Base Excess -3 L POC Mix VBG pCO2 Pt Tmp 39.0 L O2 Delivery Device Not entered BiPAP Vent Mode Not entered POC PEEP 6 Radiography Diagnostic Testing: Radiology Impression Chest X-Ray 06/19/24 15:03 IMPRESSION: 1. Slight increased airspace consolidation within the left upper lobe. Findings are nonspecific and may represent atelectasis or pneumonia. Correlation with laboratory values recommended. 2. Hyperlucency along the visualized diaphragm, compatible with interposed bowel loops seen on lateral radiograph from 2018. 3. Severe emphysema. Reading Location: [facility] Physical Exam Const alert, oriented x3 and no apparent distress General Appearance: cooperative HEENT normocephalic, head/scalp atraumatic and moist oral mucous membranes Eyes PERRL, EOMs intact bilaterally and conjunctivae normal Neck supple General: trachea midline Chest inspection of chest normal Resp normal respiratory effort Auscultation: diminished lung sounds; Negative for rales, rhonchi or wheezes Cardio regular rate and regular rhythm GI normal to inspection, nondistended, normoactive bowel sounds Extremity no clubbing, cyanosis or edema Skin no rashes or lesions noted Neuro CN's II-XII intact bilaterally, moves all extremities and no focal motor deficits Psych cooperative and affect normal Charges/Coding Visit Charges Inpatient E&M: 48798 Subs Hosp L2
[2024-06-21 09:51] VITALS: O2SAT 88; O2SAT 92; O2SAT 93
--- NOTE | 2024-06-21 09:56 | CASEMGMT ---
Addendum entered by Mahendra Baum 06/21/24 15:48: Marcial from [facility] responds to [facility] referral stating to take a tank from stock as he is not in the hospital today. RN notified and delivering tank from ICU stock at this time. Pt RN states that she educated the pt to call [employer] prior to leaving the hospital to have the remaining oxygen equipment delivered. Addendum entered by Mahendra Baum 06/21/24 12:38: Rx signed by Dr. Lorenz. Rx and O2 testing results sent to [facility] via [facility] at this time. Original Note: Per the harvesting manager, pt qualifies for 2L of oxygen with exertion. Dr. Lorenz notified for O2 Rx signing. CM to follow.
--- NOTE | 2024-06-21 12:17 | DCINST_ITS ---
Discharge Instructions Diet Discharge Diet: No restrictions DC O2, CPAP, BIPAP needs RN Home O2 Qualification: Home O2 Qualification: Is the patient on home oxygen No 06/21/24 09:51 Home O2 Qualification: AT REST 1- Pulse Ox at rest 93 06/21/24 09:51 Home O2 Qualification: WITH AMBULATION 1- Pulse Ox with ambulation 88 06/21/24 09:51 1- Oxygen Flow Rate with 0 06/21/24 09:51 ambulation 2- Pulse Ox with ambulation 92 06/21/24 09:51 2- Oxygen Flow Rate with 2 06/21/24 09:51 ambulation Home O2 Discharge instructions: No Dressing / Incision Discharge Activity: Return to Normal Activity Dressing / Incision Call your doctor if you observe: Fever of 101 or Higher, Shortness of breath, Dizziness, Fainting spells, Swelling in the ankles, Chest pain and Increased palpitations (irregular heartbeat) Follow Up Care Test Results: Test results from this visit will be discussed in further detail at your follow- up appointment, if applicable. Discharge Plan Admission Admit Date/Time: 06/19/24 16:09 Attending Provider: Marvin Lorenz Primary Care Provider: Lexx Smith Consulting Providers: Trinity Wahl Discharge Orders/Prescriptions Prescriptions: New oseltamivir 75 mg Capsule 75 mg PO BID 5 Days Qty: 10 0RF levofloxacin 750 mg tablet 750 mg PO DAILY 6 Days Qty: 6 0RF Continued Combivent Respimat 20-100 mcg/actuation mist 1 puff inhalation Q6H prednisone 5 mg tablet 15 mg PO DAILY albuterol sulfate 2.5 MG/3 ML solution for nebulization 2.5 mg inhalation Q6H PRN PRN (Reason: Sob &/Or Wheezing) budesonide 0.5 mg/2 mL suspension for nebulization 0.5 mg inhalation BID Breztri Aerosphere 160-9-4.8 mcg/actuation HFA aerosol inhaler 2 inh INHALATION BID Combivent Respimat 20-100 mcg/actuation mist 1 puff inhalation Q4H levothyroxine 200 mcg tablet 200 mcg PO .2 , 1.5 Wed Qty: 102 3RF Referrals / Follow Up: Lexx Smith MD [Primary Care Provider] - Within 1 Week Disposition Disposition (needs filled in before D/C Order can be placed): Home, Self Care
[2024-06-21] MEDS: Mag /Aluminum/Simeth WCH UDC 30 ML ORAL.SUSP PO (13:11)
--- NOTE | 2024-06-21 14:08 | PCM.DC.SUM ---
Providers Date of Admission: 06/19/24 Primary Care Physician: Dr. Lexx Smith MD Consultations 06/19/24 16:53 Consult: Forensic Social Worker / Pulmonary Medicine Routine Consulting Provider: Intensivists/Pulmonary Med Reason for Consult: Acute hypoxic respiratory failure EMERGENT Consult: No MD Notified: Yes Date Notified: 06/19/24 Time Notified: 16:11 Method of Notification: Answering Service Reason For Visit: ACUTE HYPOXIC RESP FAILURE 2/2ACUTE EXAC OF COPD Diagnosis Discharge Diagnosis (1) Acute hypoxemic respiratory failure: Status: Acute Code(s): J96.01 - Acute respiratory failure with hypoxia (2) COPD (chronic obstructive pulmonary disease): Status: Chronic Code(s): J44.9 - Chronic obstructive pulmonary disease, unspecified Medications at Discharge Home Medications albuterol sulfate 2.5 mg/3 mL (0.083 %) solution for nebulization 2.5 mg inhalation Q6H PRN PRN Sob &/Or Wheezing 06/28/16 ipratropium 20 mcg-albuterol 100 mcg/actuation mist for inhalation (Combivent Respimat) 1 puff inhalation Q6H 03/19/21 levothyroxine 200 mcg tablet 200 mcg PO .2 sund, 1.5 Wed #102 tabs 02/25/24 prednisone 5 mg tablet 15 mg PO DAILY 04/22/24 budesonide 0.5 mg/2 mL suspension for nebulization 0.5 mg inhalation BID 06/19/24 budesonide 160 mcg-glycopyr 9 mcg-formot 4.8 mcg/actuation HFA inhaler (Breztri Aerosphere) 2 inh inhalation BID 06/19/24 ipratropium 20 mcg-albuterol 100 mcg/actuation mist for inhalation (Combivent Respimat) 1 puff inhalation Q4H sob 06/19/24 levofloxacin 750 mg tablet 750 mg PO DAILY 6 days #6 tabs 06/21/24 oseltamivir 75 mg capsule 75 mg PO BID 5 days #10 caps 06/21/24 Hospital Course Operations None Procedures None Summary of Care Provided Minutes Spent on Discharge: 32 Hospital Course: Per HPI: PABLO FRIAS, is a 64 M who presented to the emergency department at [facility] [place] on 06/19/2024 with a chief complaint of shortness of breath. Patient has a remote history of tobacco abuse and quit 15 years ago but does have COPD. He is not oxygen dependent at baseline. He states over the last 2 days he developed a runny nose, cough and congestion with progressively worsening shortness of breath. He stated today his breathing really got worse and he was having tripoding at home. Sats were initially 88% on room air and he did appear tachypneic and conversationally dyspneic. He was placed on BiPAP in the emergency department. His indicated he was much worse than he had been 24 hours prior. He had no known sick contacts. He has not been vaccinated for influenza this year. Patient does state he is coughing up sputum that is more volume and thicker than typical. Vital signs on presentation showed temperature of 97.6, heart rate 129, respiratory rate 24, blood pressure was 164/102, pulse ox was 89% on room air and improved to 95% on 3 L nasal cannula however work of breathing progressively worse and he was placed on BiPAP. CBC showed a mild white count was 11.1 and he does have a left shift with an 89.5% neutrophilia. Chemistry panel was unremarkable. Troponin was normal at 7. BNP was 58.6. A VBG was initially obtained which showed a pH of 7.37. I did request an ABG which showed a pH of 7.35 with a pCO2 of 34.9 and a pO2 of 129. EKG was sinus tachycardia with no ST-T wave changes concerning for acute ischemia. Chest x-ray showed some airspace consolidation in left upper lobe and hyperlucency along the diaphragm with severe emphysematous changes. Influenza PCR was positive. He was given Solu-Medrol, aerosols, 1 dose of Tamiflu and placed on BiPAP. He will be admitted to intensive care unit as I am concerned about his potential decompensation. Hospital Course: 1. Acute hypoxic respiratory failure secondary to COPD exacerbation acute respiratory failure influenza and possible bacterial pneumonia?64-year-old male presented to the hospital with increasing shortness of breath. He does have a history of COPD that he takes multiple inhalers for as well as being on chronic steroids. He was placed on increased dose of steroids, pulmonology was consulted and he was continued on Levaquin and Tamiflu. He has had significant improvement in his respiratory status and he had an ambulatory pulse ox today that demonstrated need of 2 L nasal cannula with ambulation. While being room air at rest. I have reviewed the oxygen testing, and this patient qualifies for the home equipment and portability. The patient is mobile in the home and the community. He has if he could go home and expressed understanding of the risks and benefits of going home today. Will discharge him and completed course of his Tamiflu as well as a total of 7 days of Levaquin 750 mg daily. He can revert back to his home steroid dosage on discharge. Recommended follow-up with his PCP in 3 to 5 days. Physical Exam Narrative General: Alert, Oriented x3, Cooperative, No apparent distress HEENT: Atraumatic, PERRLA, EOMI, Normocephalic, hard of hearing Oral: Moist Mucosa Neck: Supple, No JVD Lungs: Diminished, Normal air movement, No rhonchi, wheeze, No rales Cardiovascular: Regular rate, Regular Rhythm, Normal S1, Normal S2, No murmurs Abdomen: Soft, Non Tender, Non-Distended, No Hepato-splenomegaly Extremities: No edema, Capillary Refill Less than 3 Seconds Skin: No rashes, No breakdown Musculoskeletal: No Tenderness to Palpation of Joints or Extremities Neurological: No focal neurological deficits, Motor Exam 5/5 strength throughout, Sensory exam intact to light touch and pain Psych/Mental Status: Flat Weight / BMI Weight Weight: 181 lb 3.52 oz Body Mass Index (BMI) 25.9 ABG / Lab / Microbiology Data 06/21/24 03:35 06/21/24 03:35 Laboratory: Laboratory Results - last 24 hr 06/21/24 03:35: WBC 7.0, RBC 4.62, Hgb 14.4, Hct 43.5, MCV 94.2 H, MCH 31.2, MCHC 33.1, RDW Std Deviation 48.6 H, RDW Coeff of Jennie 14.0, Plt Count 298, MPV 10.5, Immature Gran % (Auto) 0.400, Neut % (Auto) 82.3 H, Lymph % (Auto) 5.4 L, Fisher % (Auto) 11.9 H, Eos % (Auto) 0.0, Baso % (Auto) 0.0, Absolute Neuts (auto) 5.8, Absolute Lymphs (auto) 0.38 L, Nucleated RBC % 0, Sodium 136, Potassium 4.6, Chloride 103, Carbon Dioxide 27.0, Anion Gap 6, BUN 24 H, Creatinine 0.81, Estim Creat Clear Calc 93.88, Est GFR (MDRD) Af Amer 122, Est GFR (MDRD) Non-Af 101, BUN/Creatinine Ratio 29.5 H, Glucose 134 H, Calcium 8.1 L Microbiology: Microbiology 06/19/24 18:15 Sputum, Expectorated/Coughed Gram Stain - Final 06/19/24 18:15 Sputum, Expectorated/Coughed Respiratory Culture - Preliminary Appears to be normal respiratory geeta. Further studies to follow. 06/20/24 05:40 Urine, Clean Catch Legionella Antigen - Final 06/20/24 05:40 Urine, Clean Catch Streptococcus pneumoniae Antigen (M - Final 06/19/24 15:00 Mucosa - Nose SARS-CoV-2, Influenza & RSV (PCR) - Final Influenzae A D/C Instructions Discharge Diet: No restrictions Call your doctor if you observe: Fever of 101 or Higher, Shortness of breath, Dizziness, Fainting spells, Swelling in the ankles, Chest pain and Increased palpitations (irregular heartbeat) DC O2, CPAP, BIPAP Needs RN Home O2 Qualification: Home O2 Qualification: Is the patient on home oxygen No 06/21/24 09:51 Home O2 Qualification: AT REST 1- Pulse Ox at rest 93 06/21/24 09:51 Home O2 Qualification: WITH AMBULATION 1- Pulse Ox with ambulation 88 06/21/24 09:51 1- Oxygen Flow Rate with 0 06/21/24 09:51 ambulation 2- Pulse Ox with ambulation 92 06/21/24 09:51 2- Oxygen Flow Rate with 2 06/21/24 09:51 ambulation PSN CPAP & BiPAP: BiPAP & CPAP Settings per PSN Mode BiPAP 06/20/24 19:08 Bipap Delivery Device Face Mask 06/20/24 05:20 BiPAP Inspiratory Pressure 16 06/20/24 05:20 BiPAP Expiratory Pressure 6 06/20/24 05:20 BiPAP Rate 12 06/20/24 05:20 Fraction of Inspired Oxygen ( 30 06/20/24 07:00 FIO2) Home O2 Discharge instructions: No Meaningful Use Info Meaningful Use Meaningful Use Diagnoses (Choose all that apply): None applicable Ischemic Stroke Statin Dosing Therapy Reference: STATIN DOSE THERAPY REFERENCE: * Patients > 75 years receive moderate or high dose statin therapy. * Patients 75 years or YOUNGER should receive HIGH intensity statin dose unless contraindicated. You will be required to document reason for non-treatment if statin daily dose does not meet guidelines. HIGH DOSE STATIN THERAPY DAILY Atorvastatin > than or = to 40 mg Rosuvastatin > than or = to 20 mg Amlodipine + Atorvastatin > than or = to 2.5/40 mg Ezetimibe + Simvastatin 10/80 mg Simvastatin 80mg Discharge Plan Admission Admit Date/Time: 06/19/24 16:09 Attending Provider: Marvin Lorenz Primary Care Provider: Lexx Smith Consulting Providers: Trinity Wahl Discharge Orders/Prescriptions Prescriptions: New oseltamivir 75 mg Capsule 75 mg PO BID 5 Days Qty: 10 0RF levofloxacin 750 mg tablet 750 mg PO DAILY 6 Days Qty: 6 0RF Continued Combivent Respimat 20-100 mcg/actuation mist 1 puff inhalation Q6H prednisone 5 mg tablet 15 mg PO DAILY albuterol sulfate 2.5 MG/3 ML solution for nebulization 2.5 mg inhalation Q6H PRN PRN (Reason: Sob &/Or Wheezing) budesonide 0.5 mg/2 mL suspension for nebulization 0.5 mg inhalation BID Breztri Aerosphere 160-9-4.8 mcg/actuation HFA aerosol inhaler 2 inh INHALATION BID Combivent Respimat 20-100 mcg/actuation mist 1 puff inhalation Q4H levothyroxine 200 mcg tablet 200 mcg PO .2 , 1.5 Wed Qty: 102 3RF Referrals / Follow Up: Lexx Smith MD [Primary Care Provider] - Within 1 Week Disposition Disposition (needs filled in before D/C Order can be placed): Home, Self Care Charges/Coding Visit Charges Inpatient E&M: 60631 Disch Hosp >30min
== END 2024-06-21 15:50 | disposition home or self-care (01) | DRG 189 ==
LOC: ED 16:09 → ICU 16:32
PROVIDERS: Nurse Practitioner; Admitting Provider Internal Medicine; Emergency Provider Emergency Medicine; PCP Family Medicine; Visit Provider Family Medicine
DX: J96.01 Acute respiratory failure with hypoxia (principal); J10.08 Influenza due to other identified influenza virus with other specified pneumonia; J15.9 Unspecified bacterial pneumonia; J45.901 Unspecified asthma with (acute) exacerbation; J44.0 Chronic obstructive pulmonary disease with (acute) lower respiratory infection; J44.1 Chronic obstructive pulmonary disease with (acute) exacerbation; I10 Essential (primary) hypertension; E89.0 Postprocedural hypothyroidism; M54.9 Dorsalgia, unspecified; J43.9 Emphysema, unspecified; G89.29 Other chronic pain; Z79.51 Long term (current) use of inhaled steroids; Z79.890 Hormone replacement therapy; Z87.891 Personal history of nicotine dependence; Z79.52 Long term (current) use of systemic steroids
CPT/HCPCS: 36415; 36600; 71045; 80048; 80053; 82803; 83735; 83880; 84100; 84443; 84484; 85025; 87070; 87077; 87186; 87205; 87449; 87631; 93005; 94002; 94003; 94640; 94668; 94762; 97162; 97166; 97802; 99285; A4216; J1940; J2405

== ENCOUNTER → 2025-04-24 | Outpatient (CLI) | payer MEDICARE, SELFPAY ==
[2025-04-25 16:09] LABS: Thyroglobulin, Serum Qt. 0.2 ng/mL (1.4-29.2)
== END | disposition home or self-care (01) ==
LOC: MTLAB 09:57
PROVIDERS: PCP Family Medicine; Referring Provider Internal Medicine Endocrinology, Diabetes & Metabolism; Visit Provider Internal Medicine Endocrinology, Diabetes & Metabolism
DX: E89.2 Postprocedural hypoparathyroidism (principal); J42 Unspecified chronic bronchitis; C73 Malignant neoplasm of thyroid gland; E89.0 Postprocedural hypothyroidism
CPT/HCPCS: 36415; 84432; 84443; 86800